=== PATIENT | female | born 1945 | race Caucasian/White ===

== ENCOUNTER → 2023-10-15 10:29 | Outpatient (REF) | payer MEDICARE, OTHER, SELFPAY | LOC: HWRAD 10:29 | PROVIDERS: ATTENDING PHYSICIAN Internal Medicine Hematology & Oncology; FAMILY PHYSICIAN Family Medicine | DX: C16.3 Malignant neoplasm of pyloric antrum (principal) | CPT/HCPCS: 71260; 74177; Q9967 ==

== ENCOUNTER 2024-01-19 09:27 | Inpatient (IN) | payer MEDICARE, OTHER, SELFPAY ==
[2024-01-16] VITALS (7 sets, daily range): BP systolic 113–151; BP diastolic 72–87; BMI 24.1
--- NOTE | 2024-01-16 15:20 | ED.GENMED ---
History of Present Illness
General
Chief Complaint: Breathing Problem
Source: patient and family
Exam Limitations: none
Time Seen by Provider: 01/16/24 15:03
Nursing documentation reviewed up to this point in time: agreed with
History of Present Illness
History of Present Illness:
Patient to ED wt complaint of worsening SOB. States symptoms started months ago but over the past 2 weeks SOB has worsened and she is now having difficulty with ADL's. Sent for outpatient labs last week. Told by PCP today that Ddimer and BNP
were elevated and to come to ED. Denies fever but feels chills. No n/v/d. Denies any CP/pressure, cough. Brought to ED by son for eval.
Past History
Past History
ED Past Medical History: Cancer (gastric 2019 - chemo, radiation, partial gastrectomy), HTN, Hypothyroidism and Other (Hx DVT RUE after PICC insertion. 2019. Tx with mellisa)
ED Past Surgical History: Cholecystectomy, Orthopedic (toe amputation) and Other (partial gastrectomy)
Social History
Tobacco: Non-smoker
Alcohol: None
Drug: None
Personal: Single
Living: with family
Review of Systems
Review of Systems
Allergies reviewed?: Yes
All Other Systems: ROS reviewed and negative except as documented in HPI and ROS
Constitutional: Reports chills
EENT: Reports no symptoms
Respiratory: Reports trouble breathing
Cardiac: Reports no symptoms
ABD/GI: Reports other (poor appetite)
: Reports no symptoms
Musculoskeletal: Reports no symptoms
Skin: Reports no symptoms
Neurological: Reports no symptoms
Psychiatric: Reports no symptoms
Phy Exam
General Physical Exam
General Presentation: well appearing and no apparent distress
General age: appears stated age
General Skin: warm and dry
General Habitus: normal
General Mental: alert
Cardiovascular Exam
Cardiovascular Exam: regular rate/rhythm and no edema
Pulmonary Exam
Pulmonary Exam: lungs clear, no respiratory distress (Pulse ox 95% RA) and chest non tender
Gastrointestinal Exam
Gastrointestinal Exam: non tender and soft
Musculoskeletal Exam
Musculoskeletal Exam: full ROM, no edema and neuro vasc intact
Skin Exam
Skin Exam: normal color, warm/dry and no rash
Psychiatric Exam
Psychiatric Exam: normal mood/affect
Scores
Heart Failure Risk
Heart Failure Risk Score: Not Applicable
Course
Orders/Labs/Results
Orders:
Orders
01/16/24 14:58
Electrocardiogram (*1) Urgent
Reason for Study: Shortness of Breath
EKG- Treatment ONCE
01/16/24 Dinner
Regular
At Your Request: Full Participation
Does patient need a safe tray?: No
01/16/24 15:14
Complete Blood Count/With Diff Urgent
Comprehensive Metabolic Panel Urgent
D-Dimer Urgent
Free T4 Urgent
NT-proBNP Urgent
TSH Reflex To Free T4 Urgent
Troponin I Urgent
01/16/24 15:25
COVID-19 Antigen Urgent
Source: Nasal Swab
01/16/24 15:56
CT Chest Pe Study Urgent
Comment:
Reason For Exam: sob w elevated d-dimer
01/16/24 17:20
Urinalysis Reflex To Culture Urgent
Date Specimen was Collected: 01/16/24
Time Specimen was Collected: 15:13
Urine Microscopic Reflex Cult Urgent
Urine Culture Urgent
PARDEEP Source: U
Specimen Description:
Date Specimen was Collected: 01/16/24
Time Specimen was Collected: 15:13
01/16/24 17:33
CARDIOLOGY CONSULT Urgent
Consulting Provider: Bryce Monsivais
Was physician already notified: Yes
01/16/24 18:47
Admit/Transfer Patient As Directed
Co-Sign Provider:
Level of Care: Observation services
Assign to:: Telemetry
Physician / Group: umesh
Diagnosis: nonischemic troponin elevation
Reason for Telemetry: Arrhythmia
Date to Stop Telemetry: 01/19/24
Time to Stop Telemetry: 11:00
Code Status As Directed
Resuscitation Status: Full Code
PRN Pain Medication Management As Directed
May give lesser potent ordered pain med per pt: Yes
preference::
Protocol:: Medication orders for pain may be administered in a
manner that supports deferring to patient preference
when the pt is:
- Requesting an ordered lesser potent pain medication.
Least to most potent pain medications are defined
as: acetaminophen < NSAID < tramadol < opioids
(morphine, oxycodone, hydromorphone).
- Requesting a lesser dose of the same medication IF
ORDERED.
- Requesting a less intrusive route of administration
if both routes are prescribed by the provider (PO <
IV).
01/16/24 19:01
Furosemide [Lasix] 40 mg IV NOW STA
01/16/24 19:59
CARDIOLOGY CONSULT Routine
Consulting Provider: Bryce Monsivais
Was physician already notified: Yes
Activity As Directed
Activity Level: As Tolerated
I/O [Intake/ Output] As Directed
Frequency: q12h
Vital Signs As Directed
Frequency: Per unit guidelines
Weight As Directed
Frequency: Daily
DX Deep Vein Thrombosis Video Routine
01/16/24 20:00
Heparin 5,000 units SC Q12
Metoprolol Xl [Toprol Xl] 25 mg PO BID
Metoprolol [Lopressor] 25 mg PO BID
01/16/24 20:20
Troponin I Q6H
01/17/24 01:59
Troponin I Q6H
01/17/24 Breakfast
NPO
Allow oral meds: Yes
Allow clear liquids: Sips of Clears
Complete Blood Count/With Diff IN AM
Comprehensive Metabolic Panel IN AM
Levothyroxine [Synthroid] 125 mcg PO DAILY @ 0600
01/17/24 07:59
Troponin I Q6H
01/17/24 08:00
Amlodipine [Norvasc] 5 mg PO DAILY
Aspirin Chewable [Low Strength Aspirin] 81 mg PO DAILY
Cholecalciferol (Vitamin D3) [VITAMIN D3 (cholecalciferol)] 75 mcg PO DAILY
Clopidogrel Bisulfate [Plavix] 75 mg PO DAILY
Losartan [Cozaar] 100 mg PO DAILY
01/17/24 18:00
Atorvastatin [Lipitor] 40 mg PO QPM
01/19/24 11:00
DC Protocol for Telemetry ONCE
Abnormal Lab Results
01/16/24 01/16/24
15:14 17:20
Hct 35.6 L %
(37.0-47.0)
Abs Immat Gran (auto) 0.1 H 10^3/uL
(0-0.05)
Absolute Neuts (auto) 7.9 H 10^3/uL
(1.4-6.5)
Absolute Monos (auto) 1.0 H 10^3/uL
(0.1-0.6)
Immature Gran % 0.7 H %
(0-0.5)
Lymphocytes % 14.2 L %
(20.5-51.1)
D-Dimer 14.99 H ug/mlFEU
(0.00-0.50)
Potassium 3.4 L mmol/L
(3.5-5.1)
Chloride 108 H mmol/L
(98-107)
Carbon Dioxide 17 L mmol/L
(22-30)
BUN 18 H mg/dl
(7-17)
Glucose 112 H mg/dl
(70-99)
Troponin I 0.486 H* ng/ml
TSH (Reflex) 16.10 H uIU/ml
(0.47-4.68)
Leukocyte Esterase Rfl Trace A
(Negative)
Urine WBC (Reflex) 16-20 A /HPF
(0-5)
Urine Bacteria (Reflex) Few A
(Negative)
01/16/24 15:14
01/16/24 15:14
Vital Signs
Initial and Last Documented VS:
Initial Vital Signs
Temp Pulse Resp BP Pulse Ox
99.4 F 108 22 151/85 92
01/16/24 14:54 01/16/24 14:54 01/16/24 14:54 01/16/24 14:54 01/16/24 14:54
Last Documented Vital Signs
Temp Pulse Resp BP Pulse Ox
98.1 F 79 18 137/87 95
01/16/24 20:26 01/16/24 20:31 01/16/24 20:26 01/16/24 20:31 01/16/24 20:26
*Critical Care Note
Total Time (30-74mins, 75-104mins- exclusive of procedures): Not Applicable
Update Note
Update Note:
DDimer 14, Troponin 0.[address] - r/o PE She remains awake and alert, in no distress. NO cp/pressure. No SON at rest. Pulse ox 95% RA. VSS.
Ct: no evidence of PE. Dr. Bowman notifed of patient status by Dr. Grajeda. Will admit to hospitalist service. COntinue to trend troponin. Echo in AM.
ED Attending Note
-
Portions of this chart may have been created with voice recognition software.� Occasional wrong word or��sound alike� substitutions may have occurred due to the inherent limitations of voice recognition software.
Discharge Plan
Departure
Patient Disposition: Admit
Date of Disposition: 01/16/24
Time of Disposition: 17:32
Presentation/result/management discussed w/ accepting MD/DO: Hospitalist
Discharge Problem:
PRO (dyspnea on exertion), Elevated troponin
Interventions
Interventions:
*Risk Screen - Suicide Last Done: 01/16/24 20:50
*General Assessment Last Done: 01/16/24 14:54
*Neglect/Abuse Screening Last Done: 01/16/24 14:54
ED- Fall Risk Assessment Last Done: 01/16/24 15:19
*ED COVID-19 Vaccine History Last Done: 01/16/24 20:50
*Nursing Disposition Last Done: 01/16/24 19:54
ED- Cardiac Assessment Last Done: 01/16/24 15:19
ED- Pulmonary Assessment Last Done: 01/16/24 15:19
Discharge Date and Time
Discharge Date/Time: 01/16/24 19:55
[2024-01-16 15:28] LABS: % Basophils 0.7 % (0-2); % Eosinophils 0.8 % (0-6); % Immature Granulocytes 0.7 % (0-0.5); % Lymphocytes 14.2 % (20.5-51.1); % Monocytes 9.3 % (1.7-9.3); % Neutrophils 74.3 % (42.2-75.2); Absolute Basophils 0.1 10^3/uL (0-0.2); Absolute Eosinophils 0.1 10^3/uL (0-0.7); Absolute Immature Granulocytes 0.1 10^3/uL (0-0.05); Absolute Lymphocytes 1.5 10^3/uL (1.2-3.4); Absolute Neutrophils 7.9 10^3/uL (1.4-6.5); Hematocrit 35.6 % (37.0-47.0); Hemoglobin 12.8 g/dL (12.0-16.0); Mean Corpuscular Hgb 30.4 pg (27.0-31.0); Mean Corpuscular Volume 84.6 fL (81.0-99.0); Mean Platelet Volume 9.3 fL (7.4-10.4); Nucleated Red Blood Cells % 0 %; Platelet Count 312 10^3/uL (130-400); Red Blood Cell Count 4.21 10^6/uL (4.20-5.40); Red Cell Dist. Width 13.5 % (11.5-14.5); White Blood Cell Count 10.7 10^3/uL (4.8-10.8)
[2024-01-16 15:42] LABS: D-Dimer 14.99 ug/mlFEU (0.00-0.50)
[2024-01-16 15:46] LABS: COVID-19 Antigen Negative (Negative)
[2024-01-16 15:50] LABS: NT-proBNP 933 pg/ml; Troponin I 0.486 ng/ml
[2024-01-16 16:04] LABS: ALT (SGPT) 12 U/L (0-35); AST (SGOT) 25 U/L (14-36); Alkaline Phosphatase 88 U/L (38-126); Blood Urea Nitrogen 18 mg/dl (7-17); Calcium 9.1 mg/dl (8.4-10.2); Carbon Dioxide 17 mmol/L (22-30); Chloride 108 mmol/L (98-107); Glucose 112 mg/dl (70-99); Potassium 3.4 mmol/L (3.5-5.1); Sodium 138 mmol/L (135-145); Total Bilirubin 0.7 mg/dl (0.2-1.3); Total Protein 6.9 g/dl (6.3-8.2); eGFR 57.31
[2024-01-16 17:21] LABS: Free T4 2.08 ng/dl (0.78-2.19)
[2024-01-16 17:36] LABS: Urine Albumin Negative (Neg - Trace); Urine Bilirubin Negative (Negative); Urine Character Clear (Clear); Urine Color Yellow; Urine Glucose Negative (Negative); Urine Ketone Negative (Negative); Urine Leukocyte Trace (Negative); Urine Nitrite Negative (Negative); Urine Occult Blood Negative (Negative); Urine Specific Gravity 1.005 (<1.030); Urine Urobilinogen Negative (Neg - 1+)
[2024-01-16 17:53] LABS: Urine Red Blood Cell 0-2 /HPF (0-2); Urine Squamous Cell >30 /LPF (Few)
[2024-01-16 17:54] LABS: Urine Bacteria Few (Negative); Urine White Cell 16-20 /HPF (0-5)
--- NOTE | 2024-01-16 18:22 | CON.CAR ---
Consultation
Consultation Request
Date/Time Consultation Requested: 01/16/24 5:30
Date/Time Consultation Performed: 01/16/24 6:10
Requesting Provider: Dr Grajeda
Performing Provider: Dr Salomon
Reason for Consultation: abn troponin
Medical History
-
Chief Complaint: sob
History of Present Illness:
78-year-old female with past medical history of hypothyroidism, DVT, stroke, mild aortic stenosis presents to [facility] with abnormal D-dimer, fatigue, and shortness of breath. She has been feeling poorly for several weeks with no energy,
severe tiredness, and fatigue. She had outpatient lab work which revealed a D-dimer of 11 and a proBNP of 900. She was sent to the emergency room for further evaluation. CT scan of the chest revealed no pulmonary embolism but mild pleural
effusions. Her troponin was found to be abnormal at 0.4. She denies any chest pains. She has been feeling poorly for several weeks. The symptoms have been gradual in onset. She denies any orthopnea, PND, or edema. She has been sleeping
frequently. She has no fevers or chills. She has no coughing or wheezing. She has no palpitations or syncope. Her TSH was also abnormal but free T4 was normal. She is currently lying comfortably in bed not hypoxic.
Past Medical History
Past Medical History: CVA, HTN, Hypothyroidism and Other (hx DVT)
Past Surgical History: Other (Gastrectomy)
Social History
Tobacco: Non-Smoker
Alcohol: None
Living: With Family
Family History
Family History: CAD and Hypertension
Allergies / Home Medications
Allergy/AdvReac Type Severity Reaction Status Date / Time
No Known Allergies Allergy Unverified 06/05/11 09:31
�Medication �Instructions �Recorded �Confirmed �Type
amlodipine 10 mg tablet 10 mg PO DAILY 04/29/10 06/04/11 History
calcitonin (salmon) 200 1 spray intranasal DAILY 04/29/10 06/04/11 History
unit/actuation nasal spray
levothyroxine 100 mcg tablet 100 mcg PO DAILY 04/29/10 06/04/11 History
Review of Systems
-
History Source: Patient
Constitutional: Fatigue
EENT: No Symptoms
Respiratory: Trouble Breathing
Cardiac: No Symptoms
Abdomen/GI: No Symptoms
: No Symptoms
Musculoskeletal: No Symptoms
Skin: No Symptoms
Neurological: Weakness
Endocrine: No Symptoms
Hematologic/Lymphatic: No Symptoms
Physical Exam
Vital Signs
Temp Pulse Resp BP Pulse Ox
99.4 F 97 20 117/73 92
01/16/24 14:54 01/16/24 18:00 01/16/24 18:00 01/16/24 16:00 01/16/24 18:00
Lab Results
01/16/24 15:14
01/16/24 15:14
Troponin I 0.486 ng/ml H* 01/16/24 15:14
Oqd-W-Cvhkpapisds Pept 933 pg/ml 01/16/24 15:14
Physical Exam
General: Well Developed and Well Nourished
HEENT: Normocephalic and Anicteric
Respiratory: Clear and Non Labored Respirations
Cardiac: S1/S2, Regular Rhythm and Murmur (3/6 syst LSB)
GI: Soft, Non Tender and Non Distended
Genito-urinary: No Costovertebral Tender
Musculoskeletal: No Edema
Skin: Warm and Dry
Neuro: AO x 3
Impression / Plan
-
Assess:
Shortness of breath/fatigue
Elevated troponin, possible non-STEMI
Abnormal D-dimer with negative CT for PE
Pleural effusions
Hypothyroidism/abnormal TSH/normal free T4
Hypertension
History of right upper extremity DVT secondary to PICC line 2020
Mild aortic stenosis
History of gastric cancer status postgastrectomy
CVA
Echo 09/19/22: EF 70 to 75% with mild MR, mild aortic stenosis and mild aortic regurgitation, mean gradient 11.
Plan:
She presents with shortness of breath and an abnormal troponin of unclear etiology. She does have an abnormal D-dimer but CT scan did not reveal pulmonary embolism. EKG has sinus rhythm with nonspecific ST abnormalities.
We will trend her troponin and follow. This could be a non-STEMI which occurred several days ago. Add aspirin and Plavix. With no chest pains would hold off on IV heparin.
Start metoprolol 25 mg p.o. every 12. Continue losartan.
Will start with an echocardiogram to reevaluate her LVEF and aortic valve. She does have a history of at least mild aortic stenosis and has a prominent aortic murmur.
She does have some mild volume overload and will give Lasix 40 mg IV x 1 and follow her clinically. Her proBNP is modestly elevated.
Her TSH is elevated but free T4 remains relatively normal. Would continue to attempt to maintain a euthyroid state.
Check lipids and add atorvastatin 40 mg daily.
Data Reviewed
-
EKG: Tracing Personally Visualized and interpreted
Radiology: Report Reviewed by me
Medical Tests (Nuc Med, Echo etc): Report Reviewed by me
Labs: Labs Reviewed by me
Old Records: Reviewed
--- NOTE | 2024-01-16 18:54 | HPS.HSE ---
Addendum entered and electronically signed by Jerson Soto MD 01/16/24 19:05:
Started aspirin, Plavix and statin and metoprolol as per cardiology. Give single dose of IV Lasix.
Original Note:
Family Physician
-
Family Physician: Segun Dunlap
Chief Complaint
-
shortness of breath
History of Present Illness
78-year-old female past medical history of gastric cancer in 2020 s/p chemotherapy/radiation/partial gastrectomy, hypertension, hypothyroidism, cholelithiasis, DVT right upper extremity, presenting with worsening shortness of breath. Symptoms
started months ago but over the past 2 weeks shortness of breath is worsened and patient is now having difficulty with ADLs. Patient was sent for outpatient labs last week. She was told by primary care physician today to D-dimer and cardiac BNP
was elevated and told to come to the emergency room. Patient denies any fevers/chills. Denies nausea or vomiting or diarrhea. Denies any chest pain or pressure cough.
She denies any weight gain or lower extremity edema.
Mother had heart failure.
Denies any smoking or alcohol use.
Medical History
Past Medical History
Past Medical History: Reports Other (gastric cancer in 2020 s/p chemotherapy/radiation/partial gastrectomy, hypertension, hypothyroidism, cholelithiasis, DVT right upper extremity)
Past Surgical History: Reports Other ( Cholecystectomy, Orthopedic (toe amputation) and Other (partial gastrectomy))
Social History
Tobacco: Non-smoker
Alcohol: None
Drug: None
Family History
Family History: Not pertinent
Allergies / Home Medications
Allergies reflects when Allergies were last updated in [facility].
Home Medications with original date entered in [facility]
Allergy/Medication List:
Allergies
Allergy/AdvReac Type Severity Reaction Status Date / Time
No Known Allergies Allergy Unverified 06/05/11 09:31
Home Medications
amlodipine 5 mg tablet 5 mg PO DAILY Blood Pressure 01/16/24
cholecalciferol (vitamin D3) 25 mcg (1,000 unit) tablet (Vitamin D3) 75 mcg PO DAILY Supplement 01/16/24
denosumab 60 mg/mL subcutaneous syringe (Prolia) 60 mg SC [id number] bone loss 01/16/24
levothyroxine 125 mcg tablet 125 mcg PO DAILY Thyroid 01/16/24
losartan 100 mg tablet 100 mg PO DAILY Blood Pressure 01/16/24
Review of Systems
-
History Source: Patient
A 12 point ROS was completed and negative except as noted: Yes
Constitutional: Reports No Symptoms
EENT: Reports No Symptoms
Respiratory: Reports See HPI
Cardiac: Reports See HPI
Abdomen/GI: Reports No Symptoms
: Reports No Symptoms
Musculoskeletal: Reports No Symptoms
Skin: Reports No Symptoms
Neurological: Reports No Symptoms
Endocrine: Reports No Symptoms
Hematologic/Lymphatic: Reports No Symptoms
Psych: Reports No Symptoms
Physical Exam
Vital Signs
Vital Signs
Temp Pulse Resp BP Pulse Ox
99.4 F 84 15 124/86 93
01/16/24 14:54 01/16/24 18:45 01/16/24 18:45 01/16/24 18:11 01/16/24 18:45
Physical Exam
General: Well Developed, Well Nourished and No Apparent Distress
HEENT: NormoCephalic, Moist mucous membranes and Atraumatic
Respiratory: Clear
Cardiac: S1/S2 and Regular Rhythm; No Murmur or Rub
GI: Soft, Non Tender, Non Distended and Normal Bowel Sounds; No Organomegaly
Rectal: Deferred by Provider
Musculoskeletal: No Clubbing, No Cyanosis and No Edema
Skin: No Rash
Neuro: Nonfocal/grossly intact
Laboratory Results
-
01/16/24 15:14
01/16/24 15:14
Laboratory Results
Total Bilirubin 0.7 mg/dl (0.2-1.3) 01/16/24 15:14
AST 25 U/L (14-36) 01/16/24 15:14
ALT 12 U/L (0-35) 01/16/24 15:14
Alkaline Phosphatase 88 U/L (38-126) 01/16/24 15:14
Troponin I 0.486 ng/ml H* 01/16/24 15:14
Data Reviewed
-
Lab Data: Labs Reviewed by me
Old Records: Reviewed
Impression/Plan
-
IMPRESSION:
PLAN:
# Exertional dyspnea unclear etiology possibly CHF versus progression of aortic stenosis
# Nonischemic myocardial injury versus NSTEMI
-No chest pain
-EKG shows ST depressions in leads V4 to V6
-Troponin of 0.486, continue to trend
-Cardiac BNP of 900, not overtly in heart failure clinically
-CT PE shows no evidence of pulm embolism, small left greater than right bilateral pleural effusions
-Cardiology recommended holding off heparin for now
-Echocardiogram
-NPO past midnight in case cath needed
# Hypokalemia
-Replete potassium
Gastric cancer in 2020 s/p chemotherapy/radiation/partial gastrectomy
Essential hypertension
-Continue amlodipine, losartan
Hypothyroidism
-Continue levothyroxine
Cholelithiasis
History of DVT of right upper extremity from PICC line
Full code
DVT prophylaxis heparin
Regular diet
[2024-01-16] MEDS: LASIX 40 MG IV (19:14)
[2024-01-16] MEDS: LOPRESSOR 25 MG PO (20:31)
[2024-01-16] MEDS: HEPARIN 5000 UNITS SC (20:31)
[2024-01-16 20:55] LABS: Troponin I 0.579 ng/ml
[2024-01-17 03:13] LABS: Troponin I 0.533 ng/ml
[2024-01-17 03:17] VITALS: BP 119/82
[2024-01-17] MEDS: SYNTHROID 125 MCG PO (05:35)
[2024-01-17 07:14] VITALS: BP 132/81
[2024-01-17 08:02] LABS: % Basophils 0.6 % (0-2); % Immature Granulocytes 0.6 % (0-0.5); % Lymphocytes 14.5 % (20.5-51.1); % Monocytes 10.6 % (1.7-9.3); % Neutrophils 72.7 % (42.2-75.2); Absolute Basophils 0.1 10^3/uL (0-0.2); Absolute Eosinophils 0.1 10^3/uL (0-0.7); Absolute Immature Granulocytes 0.1 10^3/uL (0-0.05); Absolute Lymphocytes 1.3 10^3/uL (1.2-3.4); Absolute Monocytes 0.9 10^3/uL (0.1-0.6); Absolute Neutrophils 6.4 10^3/uL (1.4-6.5); Hematocrit 33.9 % (37.0-47.0); Hemoglobin 11.9 g/dL (12.0-16.0); Mean Corp Hgb Conc. 35.1 g/dL (33.0-37.0); Mean Corpuscular Hgb 30.4 pg (27.0-31.0); Mean Corpuscular Volume 86.5 fL (81.0-99.0); Mean Platelet Volume 9.5 fL (7.4-10.4); Nucleated Red Blood Cells % 0 %; Platelet Count 267 10^3/uL (130-400); Red Blood Cell Count 3.92 10^6/uL (4.20-5.40); Red Cell Dist. Width 13.6 % (11.5-14.5); White Blood Cell Count 8.9 10^3/uL (4.8-10.8)
[2024-01-17] MEDS: HEPARIN 5000 UNITS SC ×2 (08:19→20:23)
[2024-01-17] MEDS: COZAAR 100 MG PO (08:21)
[2024-01-17] MEDS: NORVASC 5 MG PO (08:21)
[2024-01-17] MEDS: VITAMIN D3 (cholecalciferol) 75 MCG PO (08:22)
[2024-01-17] MEDS: PLAVIX 75 MG PO (08:25)
[2024-01-17] MEDS: LOPRESSOR 25 MG PO ×2 (08:25→20:24)
[2024-01-17] MEDS: LOW STRENGTH ASPIRIN 81 MG PO (08:26)
[2024-01-17 08:46] LABS: Troponin I 0.483 ng/ml
[2024-01-17 08:54] LABS: ALT (SGPT) < 10 U/L (0-35); AST (SGOT) 22 U/L (14-36); Albumin 3.8 g/dl (3.5-5.0); Alkaline Phosphatase 75 U/L (38-126); Blood Urea Nitrogen 18 mg/dl (7-17); Calcium 8.7 mg/dl (8.4-10.2); Carbon Dioxide 20 mmol/L (22-30); Chloride 108 mmol/L (98-107); Estimated Creatinine Clearance 30 ml/min; Glucose 95 mg/dl (70-99); Potassium 3.6 mmol/L (3.5-5.1); Sodium 139 mmol/L (135-145); Total Bilirubin 0.7 mg/dl (0.2-1.3); Total Protein 6.5 g/dl (6.3-8.2); eGFR 46.05
--- NOTE | 2024-01-17 11:17 | W.PN.HOSP.TC ---
Today's Communication/Plan
-
await cards recs
cp free
monitor on tele
trend bmp
Assessment / Plan
Assessment / Plan
# Exertional dyspnea unclear etiology possibly CHF versus progression of aortic stenosis
# Elevated troponin likely NSTEMI
-No chest pain and thus heparin gtt was not started
-EKG with subtle ST wave depression
-Troponin peaked to 0.579 and now downtrended.
-Cardiac BNP of 900, s/p 40mg IV lasix [address]
-CT PE shows no evidence of pulm embolism, small left greater than right bilateral pleural effusions
-Cardiology recommended holding off heparin for now
-Echocardiogram
#Elevated cr
-trend bmp for now
-did receive IV contrast.
# Hypokalemia
-Replete potassium
Gastric cancer in 2019 s/p chemotherapy/radiation/partial gastrectomy
Essential hypertension
-Continue amlodipine, losartan
Hypothyroidism
-Continue levothyroxine
Cholelithiasis
History of DVT of right upper extremity from PICC line
Full code
DVT prophylaxis heparin
d/w with family member at bedside
Anticipated Discharge: > 48 hours
Subjective/Interval History
-
Date of Service: January 17, 2024
states passing alot of urine
Objective Data
-
Labs:
Laboratory Results
01/17/24
07:15
WBC 8.9
Hgb 11.9 L
Hct 33.9 L
Plt Count 267
Sodium 139
Potassium 3.6
Chloride 108 H
Carbon Dioxide 20 L
BUN 18 H
Creatinine 1.2 H
Glucose 95
Calcium 8.7
Total Bilirubin 0.7
AST 22
ALT < 10
Alkaline Phosphatase 75
Vital Signs:
Vital Signs
Temp Pulse Resp BP Pulse Ox
97.4 F 68 14 132/81 96
01/17/24 07:14 01/17/24 07:14 01/17/24 07:14 01/17/24 07:14 01/17/24 08:00
I&O
01/16/24 01/17/24 01/18/24
06:59 06:59 06:59
Intake Total 0 / 0
Balance 0 / 0
Physical Exam
-
General: Well Developed and No Apparent Distress
HEENT: Normocephalic, Atraumatic and Moist Mucous Membranes
Respiratory: Clear to Auscultation
Cardiac: Regular Rhythm, S1/S2 and Murmur; Negative Rub or Gallop
GI: Soft, Nontender, Nondistended and Normal Bowel Sounds; Negative Organomegaly
Rectal: Deferred by Provider
Musculoskeletal: No Clubbing, No Cyanosis and No Edema
Skin: Negative Rash
Neuro: Awake, AO x 3, No Motor Deficits and Nonfocal/Grossly Intact
Psych: Calm
[2024-01-17 11:25] VITALS: BP 125/69
--- NOTE | 2024-01-17 12:18 | W.PN.CARDCBS ---
Addendum entered and electronically signed by Segun Schmid MD 01/17/24 14:16:
Patient seen and examined by me
She tells me she has no symptoms at rest. With activity (walking to bathroom) this AM, she has less PRO
Well appearing, sitting up in bed eating lunch and visiting with family at bedside
RRR, Nl S1 and S2, no S3 or S4, /6 AHSM, no rubs and nl PMI
Lungs CTA b/l without wheezes, rales or rhonchi
Abd S, NT, ND, + BS
Ext with no edema
NSTEMI with dropping troponin and improved symptoms
DAPT was started and symptoms improved, cont for now
Cont BB, ARB and statin
Plan for echo and Cath on Friday (discussed with patient and she is agreable)
Acute Kidney Injury
No further Lasix
Follow renal function
Can assess RHC (at time of [facility]) on Friday to better assess filling pressures
Original Note:
Today's Communication / Plan
-
Check echo
N.p.o. 01/18/2024
Likely Cardiac catheterization 01/18/2024
Continue Lopressor, aspirin, Plavix, losartan, amlodipine and atorvastatin
Impression / Plan
-
Assess:
Presented 01/16/2024 with shortness of breath, fatigue
Shortness of breath/fatigue
Elevated troponin, peak 0.579 concern for possible non-STEMI
Abnormal D-dimer with negative CT for PE
Pleural effusions
Hypothyroidism/abnormal TSH/normal free T4
Hypertension
History of right upper extremity DVT secondary to PICC line 2019
Mild aortic stenosis
History of gastric cancer status postgastrectomy
CVA
Echo 09/19/22: EF 70 to 75% with mild MR, mild aortic stenosis and mild aortic regurgitation, mean gradient 11.
Echo:ordered
Plan:
-She presented 01/17/2024 with shortness of breath and an abnormal troponin of unclear etiology.
-Abnormal troponin, concern for late presenting NSTEMI with peak troponin 0.579. EKG shows sinus rhythm with nonspecific T wave abnormality in anterior leads, resolved on repeat
-Continue aspirin and Plavix
-echocardiogram to reevaluate her LVEF and aortic valve. She does have a history of at least mild aortic stenosis and has a prominent aortic murmur.
-Will make n.p.o. morning of 01/19/2024 for catheterization on 01/19/2024
-Hold on heparin unless patient has recurrent chest pain
-Continue Lopressor 25 mg twice daily, amlodipine and losartan
-She does have an abnormal D-dimer but CT scan did not reveal pulmonary embolism.
-On presentation evidence of mild volume overload. proBNP 933. Patient was provided IV Lasix 40 mg x 1 01/16/24. Creat bumped to 1.2. Hold on additional diuresis at this time. Can assess filling pressures with catheterization
-Check lipids and add atorvastatin 40 mg daily.
-Her TSH is elevated but free T4 remains relatively normal. Would continue to attempt to maintain a euthyroid state.
Plan discussed with patient, patient's family at bedside and hospitalist
HPI 01/17/2024:
78-year-old female with past medical history of hypothyroidism, DVT, stroke, mild aortic stenosis presents to [facility] with abnormal D-dimer, fatigue, and shortness of breath. She has been feeling poorly for several weeks with no energy,
severe tiredness, and fatigue. She had outpatient lab work which revealed a D-dimer of 11 and a proBNP of 900. She was sent to the emergency room for further evaluation. CT scan of the chest revealed no pulmonary embolism but mild pleural
effusions. Her troponin was found to be abnormal at 0.4. She denies any chest pains. She has been feeling poorly for several weeks. The symptoms have been gradual in onset. She denies any orthopnea, PND, or edema. She has been sleeping
frequently. She has no fevers or chills. She has no coughing or wheezing. She has no palpitations or syncope. Her TSH was also abnormal but free T4 was normal. She is currently lying comfortably in bed not hypoxic.
Progress Note - Grinding Operator
Subjective
Date of Service: January 17, 2024
Patient seen and examined. Patient resting comfortably in bed. Family at bedside. Denies chest pain or shortness of breath at rest.
Objective
Labs:
01/17/24 07:15
01/17/24 07:15
Labs
Hgb 11.9 g/dL (12.0-16.0) L 01/17/24 07:15
Hct 33.9 % (37.0-47.0) L 01/17/24 07:15
Plt Count 267 10^3/uL (130-400) 01/17/24 07:15
Sodium 139 mmol/L (135-145) 01/17/24 07:15
Potassium 3.6 mmol/L (3.5-5.1) 01/17/24 07:15
BUN 18 mg/dl (7-17) H 01/17/24 07:15
Creatinine 1.2 mg/dL (0.6-1.0) H 01/17/24 07:15
Glucose 95 mg/dl (70-99) 01/17/24 07:15
Troponins
01/16/24 01/16/24 01/17/24
15:14 20:20 02:11
Troponin I 0.486 H* 0.579 H* 0.533 H*
01/17/24
07:15
Troponin I 0.483 H*
Vital Signs and I&O:
Vital Signs
Temp Pulse Resp BP Pulse Ox
97.8 F 65 14 125/69 96
01/17/24 11:25 01/17/24 11:25 01/17/24 11:25 01/17/24 11:25 01/17/24 08:00
Vital Signs
Temp Pulse Resp BP Pulse Ox
97.8 F 65 14 125/69 96
01/17/24 11:25 01/17/24 11:25 01/17/24 11:25 01/17/24 11:25 01/17/24 08:00
Intake & Output
01/15/24 01/16/24 01/17/24 01/18/24
06:59 06:59 06:59 06:59
Intake Total 0 / 0
Balance 0 / 0
Physical Exam
Physical Exam
GEN: No distress, awake, Ox3
HEENT: supple, anicteric, mmm
LUNGS: CTA, no wheezes/rales
CV: Reg, S1/S2, 1/6 syst murmur
ABD: soft, BS+, NT/ND
EXT: No edema, no clubbing or cyanosis
NEURO: Gross non-focal
SKIN: No rash, warm, dry, pink
[2024-01-17 15:47] VITALS: BP 112/72
--- NOTE | 2024-01-17 16:19 | CM ---
met with patient,son and daughter at bedside.patient lives with son and dght in house with 7 sav,her bed and bath is on the first level,she amb i and is I with her adl.her pcp is dr sulema carlson and she uses [facility] in [facility].she has
had a vn after dc from hospital.no hx of ip rehab faciities
PMH:gastric ca sp chemo/xrt/partial gastrectomy,htn,dvt after picc placement
patient adm with nstemi,for echo,cardiac cath on friday.plan home with vn vs home with no needs.
[2024-01-17] MEDS: LIPITOR 40 MG PO (17:01)
[2024-01-17 19:33] VITALS: BP 135/74
[2024-01-17 23:00] VITALS: BP 121/80
[2024-01-18 03:46] VITALS: BP 127/75
[2024-01-18] MEDS: SYNTHROID 125 MCG PO (05:55)
[2024-01-18 07:02] VITALS: BP 136/71
[2024-01-18] MEDS: PLAVIX 75 MG PO (08:17)
[2024-01-18] MEDS: VITAMIN D3 (cholecalciferol) 75 MCG PO (08:18)
[2024-01-18] MEDS: LOPRESSOR 25 MG PO ×2 (08:18→19:49)
[2024-01-18] MEDS: LOW STRENGTH ASPIRIN 81 MG PO (08:18)
[2024-01-18] MEDS: NORVASC 5 MG PO (08:18)
[2024-01-18] MEDS: COZAAR 100 MG PO (08:18)
[2024-01-18] MEDS: HEPARIN 5000 UNITS SC ×2 (08:18→19:49)
[2024-01-18 09:12] LABS: Blood Urea Nitrogen 29 mg/dl (7-17); Calcium 9.2 mg/dl (8.4-10.2); Carbon Dioxide 20 mmol/L (22-30); Chloride 108 mmol/L (98-107); Estimated Creatinine Clearance 33 ml/min; Glucose 101 mg/dl (70-99); HDL Cholesterol 37 mg/dl; LDL Cholesterol, Calculated 102 mg/dl; Potassium 3.5 mmol/L (3.5-5.1); Sodium 139 mmol/L (135-145); Total Cholesterol 164 mg/dl (50-199); Triglyceride 125 mg/dl (10-149); Very Low Density Lipoprotein 25 mg/dl (0-30); eGFR 51.11
[2024-01-18 10:11] VITALS: BMI 23.4
--- NOTE | 2024-01-18 11:01 | W.PN.HOSP.TC ---
Today's Communication/Plan
-
ECHO
Cath in am
npo pmn
trend cr
lasix held
Assessment / Plan
Assessment / Plan
# Exertional dyspnea unclear etiology possibly CHF versus progression of aortic stenosis
# Elevated troponin likely NSTEMI
-No chest pain and thus heparin gtt was not started
-EKG with subtle ST wave depression
-Troponin peaked to 0.579 and now downtrended.
-Cardiac BNP of 900, s/p 40mg IV lasix 1 dose.
-CT PE shows no evidence of pulm embolism, small left greater than right bilateral pleural effusions
-Cardiology recommended holding off heparin for now
-Echocardiogram and cardiac cath tomm. NPO PMN.
#Elevated cr
-trend bmp for now
-did receive IV contrast.
-Cr downtrended to 1.1
# Hypokalemia
-Replete potassium
Gastric cancer in 2019 s/p chemotherapy/radiation/partial gastrectomy
Essential hypertension
-Continue amlodipine, losartan
Hypothyroidism
-Continue levothyroxine
Cholelithiasis
History of DVT of right upper extremity from PICC line
Full code
DVT prophylaxis heparin
d/w with family member at bedside on 01/16.
Anticipated Discharge: 24 - 48 hours
Subjective/Interval History
-
Date of Service: January 18, 2024
denies cp or sob
Objective Data
-
Labs:
Laboratory Results
01/18/24
07:50
Sodium 139
Potassium 3.5
Chloride 108 H
Carbon Dioxide 20 L
BUN 29 H
Creatinine 1.1 H
Glucose 101 H
Calcium 9.2
Vital Signs:
Vital Signs
Temp Pulse Resp BP Pulse Ox
98 F 69 16 136/71 94
01/18/24 07:02 01/18/24 07:02 01/18/24 07:02 01/18/24 07:02 01/18/24 10:24
I&O
01/17/24 01/18/24 01/19/24
06:59 06:59 06:59
Intake Total 0 / 0 450 / 450
Balance 0 / 0 450 / 450
Physical Exam
-
General: Well Developed and No Apparent Distress
HEENT: Normocephalic, Atraumatic and Moist Mucous Membranes
Respiratory: Clear to Auscultation
Cardiac: Regular Rhythm, S1/S2 and Murmur; Negative Rub or Gallop
GI: Soft, Nontender, Nondistended and Normal Bowel Sounds; Negative Organomegaly
Rectal: Deferred by Provider
Musculoskeletal: No Clubbing, No Cyanosis and No Edema
Skin: Negative Rash
Neuro: Awake, AO x 3, No Motor Deficits and Nonfocal/Grossly Intact
Psych: Calm
[2024-01-18 11:12] VITALS: BP 129/71
--- NOTE | 2024-01-18 13:17 | W.PN.CARDCBS ---
Today's Communication / Plan
-
for R and L cath tomorrow
for Echo tomorrow
maintain current med therapy
Impression / Plan
-
Assess:
Presented 01/16/2024 with shortness of breath, fatigue
Shortness of breath/fatigue
Elevated troponin, peak 0.579 concern for possible non-STEMI
Abnormal D-dimer with negative CT for PE
Pleural effusions
Hypothyroidism/abnormal TSH/normal free T4
Hypertension
History of right upper extremity DVT secondary to PICC line 2019
Mild aortic stenosis
History of gastric cancer status postgastrectomy
CVA
Echo 09/19/22: EF 70 to 75% with mild MR, mild aortic stenosis and mild aortic regurgitation, mean gradient 11.
Echo:ordered
Plan:
NSTEMI with dropping troponin and improved symptoms
DAPT was started on adm and symptoms improved, cont for now
Cont BB, ARB and statin
Plan for echo and Cath on Friday (discussed with patient and she is aggreable)
Acute Kidney Injury
No further Lasix
Creat improved
Follow renal function
Can assess RHC (at time of [facility]) on Friday to better assess filling pressures
For R and L heart cath Friday
Total time 50 min
Plan discussed with patient, patient's family (Daughter) at bedside and hospitalist
HPI 01/17/2024:
78-year-old female with past medical history of hypothyroidism, DVT, stroke, mild aortic stenosis presents to [facility] with abnormal D-dimer, fatigue, and shortness of breath. She has been feeling poorly for several weeks with no energy,
severe tiredness, and fatigue. She had outpatient lab work which revealed a D-dimer of 11 and a proBNP of 900. She was sent to the emergency room for further evaluation. CT scan of the chest revealed no pulmonary embolism but mild pleural
effusions. Her troponin was found to be abnormal at 0.4. She denies any chest pains. She has been feeling poorly for several weeks. The symptoms have been gradual in onset. She denies any orthopnea, PND, or edema. She has been sleeping
frequently. She has no fevers or chills. She has no coughing or wheezing. She has no palpitations or syncope. Her TSH was also abnormal but free T4 was normal. She is currently lying comfortably in bed not hypoxic.
Progress Note - Motion Study Engineer
Subjective
Date of Service: January 18, 2024
no recur of CP or SOB
Objective
Labs:
01/17/24 07:15
01/18/24 07:50
Labs
Hgb 11.9 g/dL (12.0-16.0) L 01/17/24 07:15
Hct 33.9 % (37.0-47.0) L 01/17/24 07:15
Plt Count 267 10^3/uL (130-400) 01/17/24 07:15
Sodium 139 mmol/L (135-145) 01/18/24 07:50
Potassium 3.5 mmol/L (3.5-5.1) 01/18/24 07:50
BUN 29 mg/dl (7-17) H 01/18/24 07:50
Creatinine 1.1 mg/dL (0.6-1.0) H 01/18/24 07:50
Glucose 101 mg/dl (70-99) H 01/18/24 07:50
Troponins
01/16/24 01/16/24 01/17/24
15:14 20:20 02:11
Troponin I 0.486 H* 0.579 H* 0.533 H*
01/17/24
07:15
Troponin I 0.483 H*
Vital Signs and I&O:
Vital Signs
Temp Pulse Resp BP Pulse Ox
97.7 F 66 16 129/71 96
01/18/24 11:12 01/18/24 11:12 01/18/24 11:12 01/18/24 11:12 01/18/24 11:12
Vital Signs
Temp Pulse Resp BP Pulse Ox
97.7 F 66 16 129/71 96
01/18/24 11:12 01/18/24 11:12 01/18/24 11:12 01/18/24 11:12 01/18/24 11:12
Intake & Output
01/16/24 01/17/24 01/18/24 01/19/24
06:59 06:59 06:59 06:59
Intake Total 0 / 0 450 / 450
Balance 0 / 0 450 / 450
Physical Exam
Physical Exam
Well appearing, sitting up in bed eating lunch and visiting with family at bedside
RRR, Nl S1 and S2, no S3 or S4, 1/6 AHSM, no rubs and nl PMI
Lungs CTA b/l without wheezes, rales or rhonchi
Abd S, NT, ND, + BS
Ext with no edema
[2024-01-18 15:35] VITALS: BP 121/73
[2024-01-18] MEDS: LIPITOR 40 MG PO (19:49)
[2024-01-18 19:58] VITALS: BP 128/73
[2024-01-18 23:28] VITALS: BP 142/81
[2024-01-19] VITALS (16 sets, daily range): BP systolic 103–132; BP diastolic 59–82
[2024-01-19] MEDS: SYNTHROID 125 MCG PO (04:49)
[2024-01-19 08:14] LABS: Blood Urea Nitrogen 31 mg/dl (7-17); Calcium 9.7 mg/dl (8.4-10.2); Carbon Dioxide 21 mmol/L (22-30); Chloride 106 mmol/L (98-107); Estimated Creatinine Clearance 28 ml/min; Glucose 105 mg/dl (70-99); Potassium 3.7 mmol/L (3.5-5.1); Sodium 136 mmol/L (135-145); eGFR 41.83
[2024-01-19] MEDS: LOPRESSOR 25 MG PO ×2 (09:11→20:47)
[2024-01-19] MEDS: PLAVIX 75 MG PO (09:11)
[2024-01-19] MEDS: NORVASC 5 MG PO (09:11)
[2024-01-19] MEDS: LOW STRENGTH ASPIRIN 81 MG PO (09:11)
[2024-01-19] MEDS: HEPARIN 5000 UNITS SC (09:12)
[2024-01-19] MEDS: COZAAR 100 MG PO (09:12)
[2024-01-19] MEDS: FLUSH (NSS) 1 FLUSH IV (09:13)
[2024-01-19] MEDS: VITAMIN D3 (cholecalciferol) 75 MCG PO (09:15)
--- NOTE | 2024-01-19 10:43 | CM ---
Patient seen bedside with family, reports no needs at this time. Chart reviewed, for cardiac cath today. CM will continue to follow for all discharge planning needs.
Plan; home no needs likely.
--- NOTE | 2024-01-19 11:08 | W.PN.HOSP.TC ---
Today's Communication/Plan
-
ECHO
IVF
hold arb
cards recs
Assessment / Plan
Assessment / Plan
# Exertional dyspnea unclear etiology possibly CHF versus progression of aortic stenosis
# Elevated troponin likely NSTEMI
-No chest pain and thus heparin gtt was not started
-EKG with subtle ST wave depression
-Troponin peaked to 0.579 and now downtrended.
-Cardiac BNP of 900, s/p 40mg IV lasix [address] dose[address]
-CT PE shows no evidence of pulm embolism, small left greater than right bilateral pleural effusions
-Cardiology recommended holding off heparin for now
-Echocardiogram/cath.
#KRUNAL with mild acidosis
-trend bmp for now
-did receive IV contrast.
-Cr bumped to 1.3.
-Check urine studies
-bladder scan
-hold Losartan
-start 1/4 bicarb saline
# Hypokalemia
-Replete potassium
Gastric cancer in 2019 s/p chemotherapy/radiation/partial gastrectomy
Essential hypertension
-Continue amlodipine, losartan
Hypothyroidism
-Continue levothyroxine
Cholelithiasis
History of DVT of right upper extremity from PICC line
Full code
DVT prophylaxis heparin
d/w with family member at bedside on 01/18.
Anticipated Discharge: > 48 hours
Subjective/Interval History
-
Date of Service: January 19, 2024
no complaints
awaiting for ECOH/tentative Cath
Objective Data
-
Labs:
Laboratory Results
01/19/24
07:29
Sodium 136
Potassium 3.7
Chloride 106
Carbon Dioxide 21 L
BUN 31 H
Creatinine 1.3 H
Glucose 105 H
Calcium 9.7
Vital Signs:
Vital Signs
Temp Pulse Resp BP Pulse Ox
98.7 F 68 18 132/70 95
01/19/24 07:35 01/19/24 07:35 01/19/24 07:35 01/19/24 07:35 01/19/24 07:35
I&O
01/18/24 01/19/24 01/20/24
06:59 06:59 06:59
Intake Total 450 / 450 460 / 460
Balance 450 / 450 460 / 460
Physical Exam
-
General: Well Developed and No Apparent Distress
HEENT: Normocephalic, Atraumatic and Moist Mucous Membranes
Respiratory: Clear to Auscultation
Cardiac: Regular Rhythm, S1/S2 and Murmur; Negative Rub or Gallop
GI: Soft, Nontender, Nondistended and Normal Bowel Sounds; Negative Organomegaly
Rectal: Deferred by Provider
Musculoskeletal: No Clubbing, No Cyanosis and No Edema
Skin: Negative Rash
Neuro: Awake, AO x 3, No Motor Deficits and Nonfocal/Grossly Intact
Psych: Calm
Data Reviewed
-
Total Time Spent with Patient (in minutes): 58
[2024-01-19 13:39] LABS: ACT-LR - POC 192 Seconds (116-155)
[2024-01-19 13:51] LABS: ACT-LR - POC 258 Seconds (116-155)
--- NOTE | 2024-01-19 14:44 | ITS.CL.CATH ---
Fraternity Adviser - Catheterization
Cardiac Catheterization
Procedure Report:
LEFT HEART CATHETERIZATION
Date of Procedure: January 19, 2024
Referring: Dr. Brian Monsivais
PROCEDURES:
1. Coronary angiography
INDICATION: This is a 78 y/o female with a PMH notable for hypothyroidism, DVT, mild aortic stenosis who presented to [facility] with shortness of breath, fatigue, and elevated D-dimer. A CT scanning of the chest revealed no pulmonary
embolism. Her troponin was very mildly elevated with no obvious etiology. She is now referred for coronary angiography. Her troponin peaked at 0.579 ng/mL.
ACCESS: Right radial artery, 6 Andorran sheath. I encountered severe difficulty in engaging the origin of the right coronary artery and it was unclear if it was truly nondominant. Therefore, access was also obtained in the right common femoral
artery using ultrasound guidance and placement of a 6 Andorran sheath.
HEMODYNAMICS : (mmHg)
AO (s/d) : 118/63
CORONARY FINDINGS
DOMINANCE: Left
LEFT MAIN: Normal
LEFT ANTERIOR DESCENDING: The LAD arises normally from the left main and runs in the anterior interventricular groove. The LAD has diffuse minor irregularities to 30% over its course but no focal obstructive stenosis. 2 diagonal branches arise
from the mid LAD with minor irregularities.
CIRCUMFLEX: The circumflex is a large-caliber dominant vessel giving rise to a medium caliber bifurcating OM1. The circumflex continues in the AV groove and supplies 2 small posterolateral branches and a small PDA
RIGHT CORONARY ARTERY: The right coronary artery is found to be a small caliber nondominant vessel. The aortic root is very horizontal and multiple catheters were utilized to engage the RCA origin including JR4, JR 5, AR mod, Kamran, SERAFIN, and 6
Andorran JL 4 guide catheter. Ultimately access was changed from the right radial artery to the right common femoral artery. Access was obtained with ultrasound guidance. The catheters used for radial access were again utilized for access from the
right common femoral artery. With a little persistence and a little luck we are able to cannulate the origin of the RCA with an MPA 1 via the right common femoral access. The RCA is noted to be a small caliber nondominant vessel
VENTRICULOGRAPHY: Not done
RADIATION SUMMARY: Fluoro Time (min): 20.3, Dose (mGy): 288.5, DAP (Gy.cm2) : 27
Closure Device: 6 Andorran Angio-Seal, RFA and TR band, right radial artery
CONCLUSIONS
1. Nonobstructive coronary disease
RECOMMENDATIONS
1. Continued medical therapy
2. Awaiting results from echocardiogram
Copy to: Dr. Michael Wheeler, Dr. Tad Miguel
--- NOTE | 2024-01-19 14:45 | PTCARENOTE ---
received patient post cardiac cath, transferred to bed. right radial site with R band intact, positive radial pulse, continuos POX place on right hand, with initial reading of 95%, right femoral site with gauze and tegaderm dressing dry and intact.
positive pedal pulse and right foot warm to touch. vitals noted. pateint instructed on post cath restrictions , voiced understanding. call bond in reach. daughter at bedside.patient sleeping if not disturbed. plan of care on going.
[2024-01-19] MEDS: SODIUM BICARBONATE 1075 MEQ IV (14:48)
--- NOTE | 2024-01-19 19:00 | PTCARENOTE ---
patient post cardiac cath, right radial site with R band removed at 1730, tegaderm placed over site.small area of ecchymosis noted. no swelling. site checked at 1800, remained unchanged. site again checked at 1830 and noted to have larger area of
ecchymosis and swelling present , tegaderm dressing now taunt. good radial pulse palpated, site tender to touch. pox on right hand 95%. Dr Lagunas notified who instructed to contact CT surgery PA. notified CT surgery PA Yanelis Smith who came up to
room and assessed site. She assessed site, area marked, she discussed with Dr Mcdowell and she placed R band back on right radial site with 5 ml of air instilled at 1840 , at 1845 she instructed this nurse to place another 5ml of air in R band for a
total of 10ml. orders received to restart air removal. continuous POX on right hand with POX 93%. report given to night nurse. site assessed with night nurse who resumed care of patient.
[2024-01-19] MEDS: LIPITOR 40 MG PO (19:35)
--- NOTE | 2024-01-19 21:41 | W.PN.UPDATE ---
Update Note
Progress Note Update
Cardiology update note:
-Called to assess above pt's right radial site following left heart catheterization earlier in the day
-Removed TR-Band and tegaderm
-Site noted to be ecchymotic with mild oozing from puncture site, manual pressure applied x ~10 min with achievement of hemostasis
-Pressure dressing applied, can be removed in the AM. SQ heparin held tonight and can be resumed in the AM
-No significant hematoma was noted @ both right radial or right groin, no concerns for pseudoaneurysm
[2024-01-20 01:33] LABS: Urine Albumin Trace (Neg - Trace); Urine Bilirubin 1+ (Negative); Urine Character Clear (Clear); Urine Color Yellow; Urine Glucose Negative (Negative); Urine Ketone Negative (Negative); Urine Leukocyte Trace (Negative); Urine Nitrite Negative (Negative); Urine Occult Blood Negative (Negative); Urine Urobilinogen Negative (Neg - 1+)
[2024-01-20 02:03] LABS: Urine Sodium 51 mmol/L (30-90)
[2024-01-20 03:00] VITALS: BP 141/71
[2024-01-20 03:07] LABS: Urine Bacteria Few (Negative); Urine Red Blood Cell 0-2 /HPF (0-2)
[2024-01-20 06:00] VITALS: BMI 24.4
[2024-01-20] MEDS: SYNTHROID 125 MCG PO (06:04)
[2024-01-20 07:00] VITALS: BP 124/79
[2024-01-20 09:16] LABS: Blood Urea Nitrogen 28 mg/dl (7-17); Calcium 8.7 mg/dl (8.4-10.2); Carbon Dioxide 20 mmol/L (22-30); Chloride 106 mmol/L (98-107); Estimated Creatinine Clearance 36 ml/min; Glucose 96 mg/dl (70-99); Sodium 136 mmol/L (135-145); eGFR 57.31
[2024-01-20 09:27] LABS: Potassium 3.2 mmol/L (3.5-5.1)
--- NOTE | 2024-01-20 10:11 | W.PN.CARDCBS ---
Addendum entered and electronically signed by Lc Lagunas DO 01/20/24 11:36:
I saw and examined the patient.
The Interior Decorator Painting's note was reviewed and I agree with the note.
Comment:
Plan:
Nonobstructive CAD by cath; Plavix stopped
Lipids acceptable, stop Lipitor
Cont ASA and beta rodney and ARB. Cont Norvasc
Transition to PO Lasix and check BMP in one week
Synthroid adjustment as per primary service.
Outpt cardiac follow up to be arranged.
Discussed with son and nursing at bedside
Primary service updated.
Original Note:
Today's Communication / Plan
-
Nonobstructive CAD by cath
Stopped Plavix and Lipitor
Continue aspirin, beta-rodney, losartan, amlodipine
Replete K
20 mg p.o. Lasix daily With BMP in 1 week
Synthroid adjustment per primary service
Outpatient cardiac follow-up to be arranged
Impression / Plan
-
Assessment:
Presented 01/16/2024 with shortness of breath, fatigue
Elevated troponin, peak 0.579, nonischemic myocardial injury as with nonobstructive CAD by cath 01/19/24
Abnormal D-dimer with negative CT for PE
B/L pleural effusions
Hypothyroidism with abnormal TSH/normal free T4
Hypertension
History of right upper extremity DVT secondary to PICC line 2019
Mild aortic stenosis
History of gastric cancer status postgastrectomy
CVA
Echo 09/19/22: EF 70 to 75% with mild MR, mild aortic stenosis and mild aortic regurgitation, mean gradient 11.
Echo 01/19/24: EF 55 to 60%, mild concentric LVH, trace MR, mild with mean gradient of 12 mmHg, NEIDA 1.5 cm�, mild AI
Plan:
-Patient presented with shortness of breath and fatigue
-Troponin peaked at 0.579
-Status post cardiac catheterization 01/18 with nonobstructive CAD, so troponin elevation nonischemic myocardial injury rather than NSTEMI
-Right wrist site with some bruising and ecchymoses overnight. Check H&H this morning. No bruit appreciated, and bruising appears stable without further bleeding. If further issues, would consider ultrasound
-Will stop Plavix. Continue aspirin for now
-Echo with results as above, EF preserved with mild .
-Chest CT negative for PE, however did show bilateral pleural effusions. Was diuresed with IV Lasix with bump in creatinine, so has been held. Creatinine improved to 1.0 today. Right heart cath was not able to be completed 01/18. check ambulatory
pulse ox
-Replete K. Will place on p.o. Lasix 20 mg daily with BMP in 1 week for discharge
-Continue Lopressor, losartan, amlodipine
-TSH elevated at 16 with compensated free T4. D/w hospitalist, for adjustment in synthroid dosing
-will arrange OP cardiac follow up
-d/w nursing. reviewed results above with patient and son at bedside
HPI 01/17/2024:
78-year-old female with past medical history of hypothyroidism, DVT, stroke, mild aortic stenosis presents to [facility] with abnormal D-dimer, fatigue, and shortness of breath. She has been feeling poorly for several weeks with no energy,
severe tiredness, and fatigue. She had outpatient lab work which revealed a D-dimer of 11 and a proBNP of 900. She was sent to the emergency room for further evaluation. CT scan of the chest revealed no pulmonary embolism but mild pleural
effusions. Her troponin was found to be abnormal at 0.4. She denies any chest pains. She has been feeling poorly for several weeks. The symptoms have been gradual in onset. She denies any orthopnea, PND, or edema. She has been sleeping
frequently. She has no fevers or chills. She has no coughing or wheezing. She has no palpitations or syncope. Her TSH was also abnormal but free T4 was normal. She is currently lying comfortably in bed not hypoxic.
Progress Note - Radio Station Audio Engineer
Subjective
Date of Service: January 20, 2024
No shortness of breath at present. No chest pain
Objective
Labs:
01/17/24 07:15
01/20/24 07:27
Labs
Hgb 11.9 g/dL (12.0-16.0) L 01/17/24 07:15
Hct 33.9 % (37.0-47.0) L 01/17/24 07:15
Plt Count 267 10^3/uL (130-400) 01/17/24 07:15
Sodium 136 mmol/L (135-145) 01/20/24 07:27
Potassium 3.2 mmol/L (3.5-5.1) L 01/20/24 07:27
BUN 28 mg/dl (7-17) H 01/20/24 07:27
Creatinine 1.0 mg/dL (0.6-1.0) 01/20/24 07:27
Glucose 96 mg/dl (70-99) 01/20/24 07:27
Vital Signs and I&O:
Vital Signs
Temp Pulse Resp BP Pulse Ox
98.2 F 75 18 124/79 92
01/20/24 07:00 01/20/24 07:00 01/20/24 07:00 01/20/24 07:00 01/20/24 07:00
Vital Signs
Temp Pulse Resp BP Pulse Ox
98.2 F 75 18 124/79 92
01/20/24 07:00 01/20/24 07:00 01/20/24 07:00 01/20/24 07:00 01/20/24 07:00
Intake & Output
01/18/24 01/19/24 01/20/24 01/21/24
07:59 07:59 07:59 07:59
Intake Total 450 / 450 460 / 460 300 / 300
Balance 450 / 450 460 / 460 300 / 300
Physical Exam
Physical Exam
GEN: No distress, awake, alert, oriented, EOMI x3
HEENT: supple, anicteric, mmm
LUNGS: CTA bilaterally, no wheezes/rales
CV: Reg, S1/S2, 2/6 syst LSB
ABD: soft, BS+, NT/ND
EXT: No cyanosis, clubbing, edema
NEURO: Gross non-focal
SKIN: Warm, pink, dry. No rash. Right wrist site soft, nontender to palpation, ecchymoses surrounding site.
--- NOTE | 2024-01-20 10:13 | CM ---
Addendum entered by Nahomi Navarro 01/20/24 13:38:
CM met with patient bedside, discussed PT recommendations, patient not interested in home health at this time. IMM reviewed, signed, placed in chart.
Original Note:
Patient seen with family, deny any needs to CM at this time. CM will continue to follow for all discharge planning needs.
Plan; home no needs likely, watch for VN needs.
[2024-01-20] MEDS: VITAMIN D3 (cholecalciferol) 75 MCG PO (10:21)
[2024-01-20] MEDS: PLAVIX PO ×2 (10:21→10:36)
[2024-01-20] MEDS: HEPARIN 5000 UNITS SC (10:21)
[2024-01-20] MEDS: KCL 40 MEQ PO (10:21)
[2024-01-20] MEDS: NORVASC 5 MG PO (10:22)
[2024-01-20] MEDS: LOPRESSOR 25 MG PO (10:22)
[2024-01-20] MEDS: LOW STRENGTH ASPIRIN 81 MG PO (10:23)
--- NOTE | 2024-01-20 10:44 | W.PN.HOSP.TC ---
Today's Communication/Plan
-
Dispo-replete kcl. home o2 eval. PT/OT. Plan for tentative dc later today.
Assessment / Plan
Assessment / Plan
# Exertional dyspnea likely secondary to aortic stenosis
# Elevated troponin likely nonischemic myocardial injury
-No chest pain and thus heparin gtt was not started
-EKG with subtle ST wave depression
-Troponin peaked to 0.579 and now downtrended.
-Cardiac BNP of 900, s/p 40mg IV lasix 1 dose[address]
-CT PE shows no evidence of pulm embolism, small left greater than right bilateral pleural effusions
-Cardiology recommended holding off heparin for now
-Cardiac catheterization with nonobstructive CAD. Echo with mild aortic stenosis.
-Plan to transition to 20mg lasix daily.
-ambulatory pulse o2 ordered.
#KRUNAL with mild acidosis likely pre-renal.
-trend bmp for now
-did receive IV contrast.
-Cr bumped to 1.3.
-bladder scan
-hold Losartan
-s/p bicarb saline provided prior to cath.
-Cr downtrended to baseline.
# Hypokalemia
-Replete potassium
Gastric cancer in 2019 s/p chemotherapy/radiation/partial gastrectomy
Essential hypertension
-Continue amlodipine, losartan
Hypothyroidism
-Continue levothyroxine
Cholelithiasis
History of DVT of right upper extremity from PICC line
Full code
DVT prophylaxis heparin
d/w with family member at bedside on 01/18.
PT/OT
Dispo-replete kcl. home o2 eval. PT/OT. Plan for tentative dc later today.
d/w wtih cards
More than 30 minutes spent in discharge including
Final examination of the patient
Summarizing hospital stay
Instructions for continuing care to all relevant caregivers
Preparation of discharge records, prescriptions, and referral forms
Total time spent (in minutes): 55
Anticipated Discharge: Today
Subjective/Interval History
-
Date of Service: January 20, 2024
Overnight with some oozing from R radial cath site
bleeding stopped
bruising noted
no pain.
Objective Data
-
Labs:
Laboratory Results
01/20/24 01/20/24
07:27 10:39
Hgb Pending
Hct Pending
Sodium 136
Potassium 3.2 L
Chloride 106
Carbon Dioxide 20 L
BUN 28 H
Creatinine 1.0
Glucose 96
Calcium 8.7
Vital Signs:
Vital Signs
Temp Pulse Resp BP Pulse Ox
98.2 F 75 18 124/79 92
01/20/24 07:00 01/20/24 10:22 01/20/24 07:00 01/20/24 10:22 01/20/24 07:00
I&O
01/19/24 01/20/24 01/21/24
06:59 06:59 06:59
Intake Total 460 / 460 300 / 300
Balance 460 / 460 300 / 300
Physical Exam
-
General: Well Developed and No Apparent Distress
HEENT: Normocephalic, Atraumatic and Moist Mucous Membranes
Respiratory: Clear to Auscultation
Cardiac: Regular Rhythm, S1/S2, Murmur and Other (+R radial pulse. bruising noted. ); Negative Rub or Gallop
GI: Soft, Nontender, Nondistended and Normal Bowel Sounds; Negative Organomegaly
Rectal: Deferred by Provider
Musculoskeletal: No Clubbing, No Cyanosis and No Edema
Skin: Negative Rash
Neuro: Awake, AO x 3, No Motor Deficits and Nonfocal/Grossly Intact
Psych: Calm
[2024-01-20] MEDS: KCL ELIXIR 40 MEQ PO (10:53)
[2024-01-20 11:25] LABS: Hematocrit 29.8 % (37.0-47.0); Hemoglobin 10.6 g/dL (12.0-16.0)
[2024-01-20 11:27] VITALS: BP 119/75
[2024-01-20 12:19] VITALS: O2SAT 94; O2SAT 96
--- NOTE | 2024-01-20 12:20 | RESPNOTE ---
Respiratory: Pulse oximetry 96% room air at rest. With ambulation 300 feet SpO2 94%, patient tolerated well no SOB.
--- NOTE | 2024-01-20 12:55 | W.DCSUMMARY ---
Discharge Summary
Discharge Data
Date of Admission: 01/19/24
Date of Discharge: 01/20/24
-
Pending Results: No
Hospital Course
78-year-old female past medical history of hypertension, hypothyroidism, gallstones, gastric cancer status post resection, chemotherapy and radiation who is presenting with shortness of breath. Patient was found to have elevated troponin. Patient
without chest pain as well as oral aspirin Plavix was started on heparin drip was not started per cardiology. Patient also received 1 dose of 40 mg IV Lasix with significant urinary output. D-dimer was elevated patient underwent CT chest which
showed no evidence of pulmonary embolism. Underwent echocardiogram and EF of 55 to 60%. No regional wall motion abnormality. Mild aortic stenosis. Patient also underwent cardiac catheterization with nonobstructive CAD. Patient had a bump in
creatinine which resolved with bicarbonate infusion as also with acidosis. Creatinine down trended. Cardiology recommended patient to be started on beta-rodney, aspirin and Lasix. Patient with also abnormal thyroid function and elevated TSH and
Synthroid dose was increased. Recommended outpatient BMP and thyroid function testing. Patient will follow-up with cardiology as outpatient. Patient did not qualify for home oxygenation.
Discharge Plan
-
Patient Disposition: Home (Routine Discharge)
Discharge Diagnosis/Procedures: Shortness of breath likely secondary to aortic stenosis versus mild diastolic CHF
Nonischemic myocardial injury
Hypokalemia
Abnormal TSH
Condition: Fair
Diet: 2 Gram Sodium
Activity: As tolerated
Driving Restrictions: No driving for 24 hours
Blood Work: BMP in 1 week
Thyroid function testing in 4 weeks.
Specialty Instructions: Weigh Daily- Call MD for wt gain/loss 3 lbs overnight/5 lbs in 1 week
Instructions: *DCA Heart Failure Instructions
Stand Alone Forms: DC Instructions- Cath/EP Lab
Referrals:
Lisette Sargent PA-C [Specified Professional Personl] - 02/04/24 12:40 pm (Cardiology followup appointment)
Segun Dunlap, [Family Provider] - in less than 1 week
Prescriptions:
New
furosemide 20 mg Tablet
20 mg PO DAILY 30 Days Qty: 30 0RF
metoprolol tartrate 25 mg Tablet
12.5 mg PO BID 30 Days Qty: 30 0RF
levothyroxine [Synthroid] 137 mcg tablet
137 mcg PO DAILY Qty: 30 0RF
aspirin 81 mg Tablet,Chewable
81 mg PO DAILY 30 Days Qty: 30 0RF
Continued
amlodipine 5 mg Tablet
5 mg PO DAILY
losartan 100 mg Tablet
100 mg PO DAILY
cholecalciferol (vitamin D3) [Vitamin D3] 25 mcg (1,000 unit) Tablet
75 mcg PO DAILY
Prolia 60 mg/mL Syringe
60 mg SC [id number]
Discontinued
levothyroxine 125 mcg Tablet
125 mcg PO DAILY
Discharge Date and Time
Print Language: ERITREAN
[2024-01-20 13:05] VITALS: BP 133/78; PULSE 72; O2SAT 95
[2024-01-20 15:11] VITALS: BP 126/74
--- NOTE | 2024-01-20 16:05 | PTCARENOTE ---
Discharge instructions reviewed with patient and son. Answered all questions. Removed peripheral IV and tele. Left via wheelchair with staff member. Son with patient and will transport home.
== END 2024-01-20 15:45 | disposition home or self-care (01) | DRG 287 ==
LOC: 4 EAST ACU 09:27
PROVIDERS: Internal Medicine Interventional Cardiology; Nurse Practitioner; Physician Assistant; ADMITTING PHYSICIAN Hospitalist; ATTENDING PHYSICIAN Hospitalist; CONSULT PHYSICIAN Internal Medicine Cardiovascular Disease; EMERGENCY PHYSICIAN Emergency Medicine; FAMILY PHYSICIAN Family Medicine
PROC: B2111ZZ Fluoroscopy of Multiple Coronary Arteries using Low Osmolar Contrast (ICD-10-PCS; 2024-01-19)
PROC: 4A023N7 Measurement of Cardiac Sampling and Pressure, Left Heart, Percutaneous Approach (ICD-10-PCS; 2024-01-19)
DX: I35.0 Nonrheumatic aortic (valve) stenosis (principal); E87.20 Acidosis, unspecified; J91.8 Pleural effusion in other conditions classified elsewhere; I5A Non-ischemic myocardial injury (non-traumatic); I50.30 Unspecified diastolic (congestive) heart failure; I11.0 Hypertensive heart disease with heart failure; E03.9 Hypothyroidism, unspecified; E87.6 Hypokalemia; I25.10 Atherosclerotic heart disease of native coronary artery without angina pectoris; K80.20 Calculus of gallbladder without cholecystitis without obstruction; R01.1 Cardiac murmur, unspecified; R79.1 Abnormal coagulation profile; R79.89 Other specified abnormal findings of blood chemistry; Z79.890 Hormone replacement therapy; Z79.899 Other long term (current) drug therapy; Z85.028 Personal history of other malignant neoplasm of stomach; Z92.3 Personal history of irradiation; Z92.21 Personal history of antineoplastic chemotherapy; Z90.3 Acquired absence of stomach [part of]; Z86.73 Personal history of transient ischemic attack (TIA), and cerebral infarction without residual deficits; Z86.718 Personal history of other venous thrombosis and embolism; Z82.49 Family history of ischemic heart disease and other diseases of the circulatory system
CPT/HCPCS: 71275; 80048; 80053; 80061; 81003; 81015; 82570; 83880; 84300; 84439; 84443; 84484; 85014; 85018; 85025; 85347; 85379; 87086; 87811; 93005; 93306; 93454; 94761; 97162; 99285; C1760; C1894; J7030; Q9967

== ENCOUNTER 2024-01-26 23:38 | Inpatient (IN) | payer MEDICARE, OTHER, SELFPAY ==
[2024-01-26 20:42] VITALS: BP 99/66
[2024-01-26 20:55] VITALS: BMI 24.4
[2024-01-26 21:00] VITALS: BP 104/75
[2024-01-26 21:12] LABS: % Basophils 0.7 % (0-2); % Eosinophils 0.6 % (0-6); % Immature Granulocytes 1.2 % (0-0.5); % Lymphocytes 8.9 % (20.5-51.1); % Neutrophils 80.6 % (42.2-75.2); Absolute Basophils 0.1 10^3/uL (0-0.2); Absolute Eosinophils 0.1 10^3/uL (0-0.7); Absolute Immature Granulocytes 0.2 10^3/uL (0-0.05); Absolute Lymphocytes 1.3 10^3/uL (1.2-3.4); Absolute Monocytes 1.2 10^3/uL (0.1-0.6); Absolute Neutrophils 11.8 10^3/uL (1.4-6.5); Hematocrit 37.3 % (37.0-47.0); Hemoglobin 13.1 g/dL (12.0-16.0); Mean Corp Hgb Conc. 35.1 g/dL (33.0-37.0); Mean Corpuscular Hgb 29.8 pg (27.0-31.0); Mean Corpuscular Volume 84.8 fL (81.0-99.0); Mean Platelet Volume 9.5 fL (7.4-10.4); Nucleated Red Blood Cells % 0 %; Platelet Count 340 10^3/uL (130-400); Red Cell Dist. Width 13.8 % (11.5-14.5); White Blood Cell Count 14.7 10^3/uL (4.8-10.8)
[2024-01-26 21:29] LABS: ALT (SGPT) 14 U/L (0-35); AST (SGOT) 32 U/L (14-36); Albumin 4.1 g/dl (3.5-5.0); Alkaline Phosphatase 78 U/L (38-126); Blood Urea Nitrogen 31 mg/dl (7-17); Calcium 8.8 mg/dl (8.4-10.2); Carbon Dioxide 16 mmol/L (22-30); Chloride 104 mmol/L (98-107); Estimated Creatinine Clearance 25 ml/min; Glucose 121 mg/dl (70-99); Potassium 4.1 mmol/L (3.5-5.1); Sodium 140 mmol/L (135-145); Total Bilirubin 1.2 mg/dl (0.2-1.3); Total Protein 7.1 g/dl (6.3-8.2); eGFR 38.27
--- NOTE | 2024-01-26 21:40 | ED.GENMED ---
History of Present Illness
General
Chief Complaint: Breathing Problem
Source: patient and family (Son)
Exam Limitations: none
Time Seen by Provider: 01/26/24 21:08
History of Present Illness
History of Present Illness:
This is a 78 year old female that is brought in by family with c/o SOB. States that this started about a month ago. States that she had gone to see the PCP and they did labs States that they were concerned that she was in heart failure. States that
on January 15 she came here to the ER. States that she was here for 4 days. States that she had no appetite and was very fatigued. States that her BP was also elevated at that time and D-dimer was up. Patient had a Cardiac cath and ECHO. States
that they found that her thyroid level was abnormal. Patient was negative for PE and her ECHO was normal. States that she was discharge on the . Son states that she has been going down him really since she got home. States that she can hardly
walk or sit up as she is SOB. States that now she is struggling to stand and it is getting worse. States that she is SOB. Denies any fever, chills, chest pain, abd pain, nausea, vomiting, diarrhea, headache, dizziness, urinary burning.
Past History
Past History
ED Past Medical History: Cancer (gastric 2019 - chemo, radiation, partial gastrectomy), HTN, Hypothyroidism, Other (Cholilithiasis, ) and Other (Hx DVT RUE after PICC insertion. 2019. Tx with Eliquis)
ED Past Surgical History: Cholecystectomy, Gynecological (Tubal, ), Orthopedic (toe amputation) and Other (partial gastrectomy, Right breast calcification removed)
Social History
Tobacco: Non-smoker
Alcohol: None
Drug: None
Personal:
Living: with family
Review of Systems
Review of Systems
All Other Systems: ROS reviewed and negative except as documented in HPI and ROS
Constitutional: Reports no symptoms; Denies fever or chills
EENT: Reports no symptoms
Respiratory: Reports trouble breathing; Denies cough
Cardiac: Reports no symptoms; Denies chest pain
ABD/GI: Reports no symptoms; Denies abdominal pain, nausea, vomiting or diarrhea
: Reports no symptoms; Denies dysuria, frequency or urgency
Musculoskeletal: Reports no symptoms
Skin: Reports no symptoms
Neurological: Reports no symptoms; Denies dizzy or headache
Psychiatric: Reports no symptoms
Phy Exam
General Physical Exam
General Presentation: mild distress
General age: appears stated age
General Skin: warm and dry
General Habitus: elderly
General Mental: alert
General Hydration: appears well hydrated
ENT Exam
ENT Exam: TM's normal, pharynx normal and neck supple
Eye Exam
Eye Exam: EOMI
Cardiovascular Exam
Cardiovascular Exam: regular rate/rhythm, no edema and normal peripheral pulses
Pulmonary Exam
Pulmonary Exam: lungs clear, no respiratory distress, no rales, chest non tender, no crackles, no rhonchi, no wheezing and no cough
Gastrointestinal Exam
Gastrointestinal Exam: normal bowel sounds, non tender, soft, no organomegaly, no pulsatile mass and non distended
Musculoskeletal Exam
Musculoskeletal Exam: full ROM and no edema
Skin Exam
Skin Exam: normal color, warm/dry, no rash and no petechia
Psychiatric Exam
Psychiatric Exam: normal mood/affect
Scores
Heart Failure Risk
Heart Failure Risk Score: Yes
History of Stroke or TIA: No
History of intubation for respiratory distress: No
Heart rate on ED arrival >/= 110: Yes
SaO2 <90% on arrival on room air: Yes
HR >/=110 during 3min walk test (or too ill to perform test): Yes
ECG has acute ischemic changes: No
Urea >/=12mmol/L (BUN 33.6mg/dL): No
Serum CO2>/=35mmol/L: No
Troponin I or T elevated to MD Level (0.4mg/dL): Yes
NT-proBNP >/=5,000ng/L (5,000pg/ml): No
HF Risk Score: 5
Admission Status: VERY HIGH RISK 39.8% Consider admission to hospital
Course
Orders/Labs/Results
Orders:
Orders
01/26/24 20:52
Electrocardiogram (*1) Urgent
Reason for Study: Other
Other Reason for Exam: Respiratory Distress
EKG- Treatment ONCE
01/26/24 20:54
Complete Blood Count/With Diff Urgent
Comprehensive Metabolic Panel Urgent
Free T4 Urgent
NT-proBNP Urgent
TSH Reflex To Free T4 Urgent
Comment: ADD ON
Troponin I Urgent
01/26/24 21:39
CR Chest - 2 Views Urgent
Comment:
Reason For Exam: SOB
01/26/24 21:43
Add On- LAB Urgent
Tests Added?: TSH with free T4
Abnormal Lab Results
01/26/24
20:54
WBC 14.7 H 10^3/uL
(4.8-10.8)
Abs Immat Gran (auto) 0.2 H 10^3/uL
(0-0.05)
Absolute Neuts (auto) 11.8 H 10^3/uL
(1.4-6.5)
Absolute Monos (auto) 1.2 H 10^3/uL
(0.1-0.6)
Immature Gran % 1.2 H %
(0-0.5)
Neutrophils % 80.6 H %
(42.2-75.2)
Lymphocytes % 8.9 L %
(20.5-51.1)
Carbon Dioxide 16 L mmol/L
(22-30)
BUN 31 H mg/dl
(7-17)
Creatinine 1.4 H mg/dL
(0.6-1.0)
Glucose 121 H mg/dl
(70-99)
Troponin I 0.884 H* ng/ml
TSH (Reflex) 6.49 H uIU/ml
(0.47-4.68)
01/26/24 20:54
01/26/24 20:54
Leukocytosis, carbon dioxide low, Dehydration. Glucose nonfasting. Troponin 0.884, Pro-BNP 1989, TSH elevated to 6.49
Vital Signs
Initial and Last Documented VS:
Initial Vital Signs
Temp Pulse Resp BP Pulse Ox
97.6 F 117 30 99/66 87
01/26/24 20:42 01/26/24 20:42 01/26/24 20:42 01/26/24 20:42 01/26/24 20:42
Last Documented Vital Signs
Temp Pulse Resp BP Pulse Ox
97.6 F 92 24 116/73 96
01/26/24 20:42 01/26/24 22:00 01/26/24 22:00 01/26/24 22:00 01/26/24 22:00
MDM/Problems Addressed
Differential Diagnosis Includes:
Failure to Thrive. CHF,
MDM/Problems Addressed:
This is a 78 year old female that comes in with c/o SOB. Sons states that she was in the hospital and discharge on the . States that she has been going down hill since she got home to the point that now she is not walking and when she sits up
they have to stop and let her catch her breath.
Will get labs, chest x-ray. Explained to patient and family that she will be admitted as she was hypoxic on arrival and that if she is unable to walk she can't go home. Family is in agreement. Explained that she may need to go to Rehab for
strengthening.
Back into see patient. Explained that her Chest X-ray shows a Pleural effusion and there may be a Super imposed Pneumonia. Will Treat with antibiotics and Diuretics. Will admit patient. Hospitalist notified.
Chronic conditions affecting care:
NA
Acute Exacerbation and/or Progression of Chronic Illness:
NA
*Radiology
Radiology exam reviewed: preliminary read by ED provider (Chest- Effusion with questionable super imposed Pneumonia. )
*Pulse Oximetry
Patient hypoxic: yes
*EKG
Interpreted by ED Provider?: Yes
Heart Rate: 99
Rate: normal
Rhythm: sinus
[place]: normal axis
Interval: normal interval
QRS Pattern: normal QRS
Ischemia: non-specific ST changes (V2, V3, V4, V5, V6)
*[employer] Interpretation
Rate: normal
Heart Rate: 98
Rhythm: sinus and PAC's
*Critical Care Note
Total Time (30-74mins, 75-104mins- exclusive of procedures): Not Applicable
ED Attending Note
-
Portions of this chart may have been created with voice recognition software.� Occasional wrong word or��sound alike� substitutions may have occurred due to the inherent limitations of voice recognition software.
Discharge Plan
Departure
Patient Disposition: Admit
Date of Disposition: 01/26/24
Time of Disposition: 22:49
Admit to: Telemetry
Presentation/result/management discussed w/ accepting MD/DO: Hospitalist
Patient with high blood pressure during this ER visit?: No
Condition: Good
Discharge Problem:
SOB (shortness of breath), Elevated troponin, Pleural effusion, Pneumonia
Prescriptions:
No Action
amlodipine 5 mg Tablet
5 mg PO DAILY
losartan 100 mg Tablet
100 mg PO DAILY
cholecalciferol (vitamin D3) [Vitamin D3] 25 mcg (1,000 unit) Tablet
75 mcg PO DAILY
Prolia 60 mg/mL Syringe
60 mg SC [id number]
furosemide 20 mg Tablet
20 mg PO DAILY 30 Days Qty: 30 0RF
levothyroxine [Synthroid] 137 mcg tablet
137 mcg PO DAILY Qty: 30 0RF
aspirin 81 mg Tablet,Chewable
81 mg PO DAILY 30 Days Qty: 30 0RF
acetaminophen [Tylenol Extra Strength] 500 mg Tablet
500 mg PO Q6HPRN PRN (Reason: mild pain)
Referrals:
Segun Dunlap, DO [Family Provider] -
Interventions
Interventions:
*Risk Screen - Suicide Last Done: 01/26/24 20:42
*General Assessment Last Done: 01/26/24 20:42
*Neglect/Abuse Screening Last Done: 01/26/24 20:42
ED- Fall Risk Assessment Last Done: 01/26/24 21:00
ED- Cardiac Assessment Last Done: 01/26/24 21:00
ED- Pulmonary Assessment Last Done: 01/26/24 21:00
Discharge Date and Time
Print Language: BAHAMIAN
[2024-01-26 21:45] LABS: NT-proBNP 1990 pg/ml; Troponin I 0.884 ng/ml
[2024-01-26 22:00] VITALS: BP 116/73
[2024-01-26 22:29] LABS: TSH Reflex To Free T4 6.49 uIU/ml (0.47-4.68)
--- NOTE | 2024-01-26 22:55 | HPS.HSE ---
Family Physician
-
Family Physician: Segun Dunlap
Chief Complaint
-
sob , pro, fatigue
History of Present Illness
78-year-old female complaining of complaining of shortness of breath for the past month. She also complains of no appetite and feeling fatigued. According to her son she can hardly walk or sit up due to her shortness of breath progressively over
the last month. Over the past 6 days her son says by the time she walks from the bathroom to her bed she is completely winded and he needs to help her. She was 87% on room air is currently 91-93% on 4 L nasal cannula.
She was admitted 01/15 - 01/20/2024 secondary to shortness of breath with chest pain elevated troponins and bilateral pleural effusions the patient was treated with aspirin Plavix, IV Lasix . She underwent CT chest on 01/16/2024 showing no PE. 2D
echo echo was completed with EF 55 to 60% no wall abnormalities patient also underwent cardiac cath with nonobstructive CAD. Patient had abnormal thyroid function test with elevated TSH and her Synthroid dose was increased. She was recommended to
be started on beta-rodney aspirin and Lasix per cardiology.
Medical History
Past Medical History
Past Medical History: Reports Other (gastric cancer in 2019 s/p chemotherapy/radiation/partial gastrectomy, hypertension, hypothyroidism, cholelithiasis, DVT right upper extremity)
Past Surgical History: Reports Other ( Cholecystectomy, Orthopedic (toe amputation) and Other (partial gastrectomy))
Social History
Tobacco: Non-smoker
Alcohol: None
Drug: None
Personal: Single
Living: With Family
Employment: Retired
Family History
Family History: Not pertinent
Allergies / Home Medications
Allergies reflects when Allergies were last updated in [facility].
Home Medications with original date entered in [facility]
Allergy/Medication List:
Allergies
Allergy/AdvReac Type Severity Reaction Status Date / Time
No Known Allergies Allergy Unverified 06/05/11 09:31
Home Medications
amlodipine 5 mg tablet 5 mg PO DAILY Blood Pressure 01/16/24
cholecalciferol (vitamin D3) 25 mcg (1,000 unit) tablet (Vitamin D3) 75 mcg PO DAILY Supplement 01/16/24
denosumab 60 mg/mL subcutaneous syringe (Prolia) 60 mg SC [id number] bone loss 01/16/24
levothyroxine 125 mcg tablet 125 mcg PO DAILY Thyroid 01/16/24
losartan 100 mg tablet 100 mg PO DAILY Blood Pressure 01/16/24
Review of Systems
-
History Source: Patient and Family (Son at bedside)
A 12 point ROS was completed and negative except as noted: Yes
Constitutional: Reports Weight Loss (2 kg) and Fatigue; Denies Fever or Chills
EENT: Denies Sore Throat or Mouth Swelling
Respiratory: Reports Trouble Breathing (PRO, hypoxia); Denies Cough
Cardiac: Denies Chest Pain, Diaphoresis, Palpitations or Syncope
Abdomen/GI: Denies Abdominal Pain, Nausea, Vomiting, Diarrhea or Bloody Stools
: Denies Dysuria, Frequency, Flank Pain, Incontinence or Difficulty Voiding
Musculoskeletal: Denies Joint Pain or Muscle Pain
Skin: Denies Itching or Rash
Neurological: Denies Dizzy, Headache or Weakness
Endocrine: Reports No Symptoms
Hematologic/Lymphatic: Reports No Symptoms
Psych: Reports Calm
Physical Exam
Vital Signs
Vital Signs
Temp Pulse Resp BP Pulse Ox
97.6 F 92 24 116/73 96
01/26/24 20:42 01/26/24 22:00 01/26/24 22:00 01/26/24 22:00 01/26/24 22:00
Physical Exam
General: Comfortable, Conversant and Other (Hypoxia improved on 4 L nasal cannula); No Fever or Chills
HEENT: NormoCephalic, Anicteric, PERRLA, [place] Conjunctivae, No Ptosis and Oxygen (4 L nasal cannula)
Respiratory: Clear; No Wheezes, Rales or Rhonchi
Cardiac: S1/S2 and Regular Rhythm; No Murmur, Rub, Gallop, Peripheral Edema or JVD
Breast: Deferred by me
GI: Soft, Non Tender, Non Distended, Normal Bowel Sounds and No Hepatosplenomegaly
Rectal: Deferred by Provider
Genito-urinary: Deferred by me
Musculoskeletal: No Clubbing, No Cyanosis and No Edema
Skin: Warm and Dry; No Rash or Jaundice
Neuro: AO x 3, No Motor Deficits, Nonfocal/grossly intact, Cranial Nerves Intact and No Sensory Deficits; No Slurred Speech, Facial Droop or Tremors
Psych: Calm
Laboratory Results
-
01/26/24 20:54
01/26/24 20:54
Laboratory Results
Total Bilirubin 1.2 mg/dl (0.2-1.3) 01/26/24 20:54
AST 32 U/L (14-36) 01/26/24 20:54
ALT 14 U/L (0-35) 01/26/24 20:54
Alkaline Phosphatase 78 U/L (38-126) 01/26/24 20:54
Troponin I 0.884 ng/ml H* 01/26/24 20:54
Impression/Plan
-
Impression/plan:
Admit to telemetry
#Acute on chronic dyspnea clear etiology
#Acute hypoxic respiratory sufficiency unclear etiology
87% RA, 91-93% 4 L nasal cannula
BNP 1989
Weight 58.6 kg<60.3 EKG on 01/20/2024
-Recent negative CT PE study on 01/16/2024
-Consider repeat CT PE study if KRUNAL improves
-Consult pulmonary
#Nonischemic myocardial injury
Troponin 0.884 > 0.483 from prior on 01/17/2024
Recent cardiac cath nonobstructive CAD
-Continue metoprolol tartrate 12.5 mg twice daily, aspirin 81 mg daily
2D echo 01/19/2024: EF 55 to 60%, no wall abnormalities, mild LVH, mild aortic stenosis mean gradient 12 mmHg
#KRUNAL On possible CKD
Creat 1.4 was 1 on 01/20/2024
Hold losartan, Lasix
-Follow BMP
#Hx bilateral pleural effusions 01/16/2024
Was started on Lasix 20 mg daily will currently hold due to KRUNAL
#History of DVT of right upper extremity from PICC line
#Aortic stenosis
Mild aortic stenosis via echo mean gradient 12 mmHg
#Gastric cancer in 2019 s/p chemotherapy/radiation/partial gastrectomy
#Essential hypertension
-Continue amlodipine
-Hold losartan
#Hypothyroidism
Recent elevated TSH on 01/16/2024
-Continue levothyroxine at 137 mcg was increased from 125 mcg daily
- due 6 weeks for repeat TSH t4
#Cholelithiasis hx
DVT prophylaxis
Subcu heparin
Full code
[2024-01-26 22:59] LABS: Free T4 2.49 ng/dl (0.78-2.19)
[2024-01-26] MEDS: ZOSYN 50 IV (23:18)
[2024-01-26] MEDS: VANCOCIN 200 IV (23:18)
[2024-01-26] MEDS: LASIX 40 MG IV (23:18)
--- NOTE | 2024-01-26 23:46 | W.PN.UPDATE ---
Update Note
Progress Note Update
This is an addendum to the H&P written by Tammie Norton on 01/26/2024.� Patient seen and examined independently with CREDIT RATING INSPECTOR.�
78-year-old female past medical history of� gastric cancer in 2019 s/p chemotherapy/radiation/partial gastrectomy, hypertension, hypothyroidism, cholelithiasis, DVT right upper extremity presenting for dyspnea on exertion and hypoxemia.
She was recently admitted from 01/15 to 01/19 for dyspnea, EKG changes and troponin elevation.� CT PE was negative at that time.� She was diuresed and underwent cardiac catheterization which showed nonobstructive CAD.� She was started on aspirin,
metoprolol, and Lasix.
She continues to be dyspneic primarily with exertion.� At this time she is hypoxemic requiring 4 L of oxygen.� Labs show KRUNAL.� Cardiac BNP of 1900. Non ischemic troponin elevation.� On examination she appears euvolemic.� Would hold losartan, Lasix
and obtain CT PE when renal function has improved.� Pulmonary consulted.
[2024-01-27] VITALS (9 sets, daily range): BP systolic 103–130; BP diastolic 64–81; PULSE 84–98; O2SAT 94–95; BMI 23.7; BMI 23.8
[2024-01-27 00:31] LABS: COVID-19 Antigen Negative (Negative)
[2024-01-27 00:43] LABS: Troponin I 0.702 ng/ml
[2024-01-27 06:07] LABS: Troponin I 0.666 ng/ml
[2024-01-27 06:09] LABS: % Basophils 0.6 % (0-2); % Eosinophils 1.1 % (0-6); % Immature Granulocytes 1.2 % (0-0.5); % Lymphocytes 9.7 % (20.5-51.1); % Neutrophils 78.4 % (42.2-75.2); Absolute Basophils 0.1 10^3/uL (0-0.2); Absolute Eosinophils 0.1 10^3/uL (0-0.7); Absolute Immature Granulocytes 0.1 10^3/uL (0-0.05); Absolute Neutrophils 8.4 10^3/uL (1.4-6.5); Hematocrit 32.6 % (37.0-47.0); Hemoglobin 11.5 g/dL (12.0-16.0); Mean Corp Hgb Conc. 35.3 g/dL (33.0-37.0); Mean Corpuscular Hgb 30.7 pg (27.0-31.0); Mean Corpuscular Volume 86.9 fL (81.0-99.0); Mean Platelet Volume 9.3 fL (7.4-10.4); Nucleated Red Blood Cells % 0 %; Platelet Count 254 10^3/uL (130-400); Red Blood Cell Count 3.75 10^6/uL (4.20-5.40); Red Cell Dist. Width 13.5 % (11.5-14.5); White Blood Cell Count 10.7 10^3/uL (4.8-10.8)
[2024-01-27 06:40] LABS: ALT (SGPT) 11 U/L (0-35); AST (SGOT) 24 U/L (14-36); Albumin 3.3 g/dl (3.5-5.0); Alkaline Phosphatase 68 U/L (38-126); Blood Urea Nitrogen 32 mg/dl (7-17); Calcium 7.9 mg/dl (8.4-10.2); Carbon Dioxide 22 mmol/L (22-30); Chloride 105 mmol/L (98-107); Estimated Creatinine Clearance 25 ml/min; Glucose 96 mg/dl (70-99); Potassium 3.6 mmol/L (3.5-5.1); Sodium 140 mmol/L (135-145); Total Bilirubin 0.8 mg/dl (0.2-1.3); Total Protein 6.1 g/dl (6.3-8.2); eGFR 38.27
--- NOTE | 2024-01-27 07:24 | PTCARENOTE ---
Patient arrived on unit @0057 via stretcher from Ed, pulled over from stretcher to bed with assist x4. Patient AAOx3, denies any pain or discomfort. Skin assessment completed, oriented to unit, call bond within reach.
--- NOTE | 2024-01-27 08:42 | W.PN.HOSP.TC ---
Today's Communication/Plan
-
IV Lasix. Cardiology consult. Pulmonary consult.
Assessment / Plan
Assessment / Plan
Physical exam:
General: Acute on chronically ill
HEENT: Normocephalic, Atraumatic and Moist Mucous Membranes
Respiratory: Decreased breath sounds bilateral; Negative Wheezes, Rales or Rhonchi
Cardiac: Regular Rhythm and S1/S2, systolic murmur
GI: Soft, Nontender and Nondistended
Musculoskeletal: No Clubbing, No Cyanosis and presence B/L Edema
Neuro: Awake, Alert and Oriented
Psych: Calm
A/P:
Acute hypoxic respiratory insufficiency likely related to acute diastolic congestive heart failure and bilateral pleural effusions:
CTA negative for PE
Doubt infectious process
Bilateral pleural effusions noted
Given diuretics and antibiotics yesterday but ordered none for today.
Pulmonary consulted
Acute diastolic congestive heart failure:
IV diuretics, Lasix 40 mg IV daily (restarted today)
BNP upon admission 1989
Monitor strict I/O
Monitor daily weight
Monitor renal function and electrolytes
Reviewed latest echocardiogram on our system
Continue guideline-directed medical therapy for heart failure (GDMT)
Fluid restriction
Salt restriction
Heart failure education
Follow up clinical response
Cardiology consulted today-[place] texted cardiology today
Elevated troponin:
Nonischemic myocardial injury
Follow-up.
Nonobstructive CAD:
Continue aspirin beta-blockers
KRUNAL on CKD:
Likely cardiorenal component
Avoid nephrotoxic
Monitor renal function
Hypothyroidism:
Continue thyroid replacement
Gastric cancer:
Status post chemo, radiation, partial gastrectomy.
DVT prophylaxis-heparin SQ
CODE STATUS-full code
Total time spent on today's encounter was 52 minutes which included time spent in counseling the patient/family regarding diagnosis and treatment plan as listed above, goals of care, and symptom management. Case was discussed with nursing staff,
specialists, and care coordinators/case management. All labs and imaging personally reviewed by me. Remainder the time spent in detailed review of previous records, lab data, imaging, and other medical provider documentation.
Anticipated Discharge: > 48 hours
Subjective/Interval History
-
Date of Service: January 27, 2024
Patient endorses some shortness of breath. On supplemental oxygen. No chest pain. Afebrile
Objective Data
-
Labs:
Laboratory Results
01/26/24 01/27/24
20:54 05:20
WBC 14.7 H 10.7
Hgb 13.1 D 11.5 L
Hct 37.3 32.6 L
Plt Count 340 254 D
Sodium 140 140
Potassium 4.1 3.6
Chloride 104 105
Carbon Dioxide 16 L 22
BUN 31 H 32 H
Creatinine 1.4 H 1.4 H
Glucose 121 H 96
Calcium 8.8 7.9 L
Total Bilirubin 1.2 0.8
AST 32 24
ALT 14 11
Alkaline Phosphatase 78 68
Vital Signs:
Vital Signs
Temp Pulse Resp BP Pulse Ox
98.0 F 90 17 110/71 98
01/27/24 07:23 01/27/24 07:23 01/27/24 07:23 01/27/24 07:23 01/27/24 07:23
I&O
01/26/24 01/27/24 01/28/24
06:59 06:59 06:59
Intake Total 240 / 240
Output Total 75 / 75
Balance 165 / 165
[2024-01-27] MEDS: LOW STRENGTH ASPIRIN 81 MG PO (08:43)
[2024-01-27] MEDS: HEPARIN 5000 UNITS SC ×2 (08:43→20:42)
[2024-01-27] MEDS: VITAMIN D3 (cholecalciferol) 75 MCG PO (08:43)
[2024-01-27] MEDS: NORVASC 5 MG PO (08:44)
[2024-01-27] MEDS: SYNTHROID 137 MCG PO (08:50)
--- NOTE | 2024-01-27 09:14 | CON.PUL ---
Consultation
Consultation Request
Date/Time Consultation Requested: 01/27/24
Date/Time Consultation Performed: 01/27/24
Performing Provider: Siva
Reason for Consultation: SOB/Hypoxia
Medical History
-
History of Present Illness:
Patient is a 78-year-old female with past medical history of�gastric cancer in 2019 s/p chemotherapy/radiation/partial gastrectomy, hypertension, hypothyroidism, cholelithiasis, DVT right upper extremity presenting for dyspnea on exertion and
hypoxemia. She was recently admitted from 01/15-01/20/24 for dyspnea, EKG changes and troponin elevation.� CT PE was negative at that time.� She was diuresed and underwent cardiac catheterization which showed nonobstructive CAD.� She was started on
aspirin, metoprolol, and Lasix.
She continues to be dyspneic primarily with exertion.� She is placed on 4 L of oxygen.� Labs show KRUNAL.� Cardiac BNP of 1900. CXR showing edema, with more effusion noted posteriorly on lateral film.
Denies history of lung disease in the past, never smoker. She admits to lung cancer in the family in her sister who was a smoker.
Daughter states she has been significantly weak and fatigued, 'sleeping all the time.' She does admit to snoring but never had a sleep study. Patient states she cannot get out of bed longer than 1 hour due to weakness. Patient has symptoms
suggestive of depression including fatigue, anhedonia, psychomotor retardation, and hopelessness.
.
Past Medical History
Past Medical History: Other (see list below)
Social History
Tobacco: Non-smoker
Alcohol: None
Drug: None
Family History
Family History: Reviewed & Not Pertinent
Allergies / Home Medications
Allergies
Allergy/AdvReac Type Severity Reaction Status Date / Time
No Known Allergies Allergy Verified 01/26/24 20:56
Home Medications
�Medication �Instructions �Recorded �Confirmed �Last Taken �Type
amlodipine 5 mg tablet 5 mg PO DAILY Blood Pressure 01/16/24 01/26/24 01/26/24 History
cholecalciferol (vitamin D3) 25 75 mcg PO DAILY Supplement 01/16/24 01/26/24 01/26/24 History
mcg (1,000 unit) tablet (Vitamin
D3)
denosumab 60 mg/mL subcutaneous 60 mg SC [id number] bone loss 01/16/24 01/26/24 Unknown History
syringe (Prolia)
losartan 100 mg tablet 100 mg PO DAILY Blood Pressure 01/16/24 01/26/24 01/26/24 History
aspirin 81 mg chewable tablet 81 mg PO DAILY 30 days #30 tabs 01/20/24 01/26/24 01/26/24 Rx
furosemide 20 mg tablet 20 mg PO DAILY 30 days #30 tabs 01/20/24 01/26/24 01/26/24 Rx
levothyroxine 137 mcg tablet 137 mcg PO DAILY #30 tabs 01/20/24 01/26/24 01/26/24 Rx
(Synthroid)
acetaminophen 500 mg tablet 500 mg PO Q6HPRN PRN mild pain 01/26/24 01/26/24 01/25/24 History
(Tylenol Extra Strength)
Review of Systems
-
History Source: Patient
All other systems: Negative unless noted
Vitals / Labs / Diagnostic Testing
Vital Signs
Temp Pulse Resp BP Pulse Ox
98.0 F 90 17 110/71 98
01/27/24 07:23 01/27/24 07:23 01/27/24 07:23 01/27/24 07:23 01/27/24 07:23
Lab Data
01/27/24 05:20
01/27/24 05:20
Diagnostic Testing:
Physical Exam
-
HEENT: Normocephalic, Anicteric and Moist Mucous Membranes
Cardiovascular: S1/S2 and Regular Rhythm
Respiratory: Clear and Non-Labored Respirations
GI: Soft, Non Distended and Non Tender
Neurology: Awake, Alert, Oriented and Other (depressed/anhedonic appearing)
Skin: Warm, Dry and Good Color
General: Comfortable and Other (NAD)
Assessment
-
Patient is a 78-year-old female with past medical history of�gastric cancer in 2020 s/p chemotherapy/radiation/partial gastrectomy, hypertension, hypothyroidism, cholelithiasis, DVT right upper extremity presenting for dyspnea on exertion and
hypoxemia. She is placed on 4 L of oxygen.� Labs show KRUNAL.� Cardiac BNP of 1900. CXR showing edema, with more effusion noted posteriorly on lateral film. We are consulted for eval.
Acute hypoxic respiratory insufficiency
SOB
Mild CHF exacerbation
Progressive fatigue, weakness, psychomotor retardation
Suspicious for underlying depression
Snoring, suspect KATELIN, never had sleep study
KRUNAL, creat 1.4
Pleural effusion on CXR
Conditions present DEBUBBLIZER
History of gastric cancer in 2020 s/p chemotherapy/radiation/partial gastrectomy
Hypertension
Hypothyroidism
Cholelithiasis
DVT right upper extremity
Cholecystectomy
s/p toe amputation
Plan
Hypoxemia noted on arrival, O2 johnny 87
Currently saturating 98% on 4LNC, O2 order changed to allow for weaning
Can start reducing O2 requirements as tolerated
Home O2 evaluation in past did not show need for O2 at home
Denies history of lung disease in the past, never smoker. She admits to lung cancer in the family in her sister who was a smoker.
Daughter states she has been significantly weak and fatigued, 'sleeping all the time.' She does admit to snoring but never had a sleep study.
Patient states she cannot get out of bed longer than 1 hour due to 'weakness'
When asked to get out of bed, she falls limp and states 'I'm a failure'
Patient has symptoms suggestive of depression including fatigue, anhedonia, psychomotor retardation, and hopelessness.
Recommend psych consult
PT/OT eval ongoing as well
Suspect patient has mild CHF and deconditioning
CXR/CT obtained indicating pleural effusions, most pronounced on lateral film
Other imaging reviewed--recent CT chest neg for PE 01/16/24, I do not see need to repeat testing for PE
Prior ECHO results are reviewed indicating normal function
proBNP mildly elevated
Agree wtih diuresis
Will need outpatient pulmonary evaluation in our office for PFTs and 6MWT
Risk factors assessed for underlying sleep disordered breathing also noted, recommend outpatient PSG/sleep evaluation
Discussed with daughter at bedside
Reviewed with patient as well
We will follow
Diagnostic Data
Chest X-Ray: 01/26/24- Left greater than right bilateral pleural effusions with adjacent atelectasis. A superimposed infectious process can appear similar.
CT Scan: CHEST 01/16/24- 1. No evidence of pulmonary embolism.
2. Small left greater than right lateral pleural effusions with adjacent atelectasis.
3. Postoperative changes in the upper abdomen with mild wall thickening of the gastric remnant which may be due to underdistention however can be seen with gastritis.
4. Prior cholecystectomy with prominence of the biliary ducts, likely secondary to reservoir effect.
Echo: 01/19/24- 1. Left ventricle: Normal size and function with a visually estimated ejection fraction of 55-60%. No regional wall motion abnormality. Mild concentric LVH.
2. Right ventricle: Normal
3. Atria: Normal
4. Mitral valve: Trace mitral regurgitation
5. Aortic valve: Thickened and calcified aortic leaflets with a mean gradient of 12 mmHg and peak velocity of 2.31 m/s. The estimated aortic valve area is 1.5 cm2 when using an LVOT diameter of 1.8 cm. There is mild aortic
insufficiency.
6. Tricuspid valve: No tricuspid regurgitation
7. When compared to the most recent echocardiogram from 09/19/2022, mild aortic stenosis is now present with a mean aortic valve gradient of 12 mmHg. Otherwise the studies are quite similar
PFT's:
Reports and relevant images were personally reviewed.
Total time spent on this consultation __78__ includes review of history, physical exam, medications, laboratory data, personal review of imaging, extensive review of outpatient records, discussion with care team and respiratory therapy.
[2024-01-27] MEDS: LASIX 40 MG IV (12:03)
--- NOTE | 2024-01-27 14:49 | CON.CAR ---
Addendum entered and electronically signed by Benito Lopez MD 01/27/24 16:05:
I saw and examined the patient.
The STAFFING CONSULTANT or PA's note was reviewed and I agree with the note.
Comment: General: Well developed, well nourished in NAD.
Neck: Supple, no JVD, HJR, carotids +2 B/L, no bruits bilaterally.
Heart: Non displaced PMI, RRR, no murmurs, No S3, S4, no rubs.
Lungs: Scattered rhonchi at the bases
Abdomen: Normal bowel sounds, soft, non-tender, non-distended.
Extremities: No clubbing, cyanosis or edema bilaterally.
Neuro: Grossly nonfocal, awake, alert and oriented x3.
Cristel has a history of chronic diastolic CHF, nonocclusive CAD on catheterization in January 2024, hypothyroidism, hypertension, mild aortic stenosis, gastric cancer status postgastrectomy, CVA. She was admitted in January 2024 with shortness of
breath for 1 month and elevated troponin of 0.579. She had catheterization with nonobstructive CAD. She was given IV Lasix but developed renal insufficiency during last admission and it was discontinued. She has had shortness of breath since
discharge 1 week ago. She had orthopnea as well but no weight gain or edema. She presents now with acute hypoxemia and suspected acute diastolic CHF.
Patient is being seen by pulmonary as well. Pleural effusions are too small for thoracentesis. Will attempt to diurese with IV Lasix. If she fails to improve may need to consider right heart catheterization. The patient is currently on 4 L of
oxygen. Discussed with patient and family at bedside.
Original Note:
Consultation
Consultation Request
Date/Time Consultation Requested: 01/27/24 at 0848
Date/Time Consultation Performed: 01/27/24 at 1158
Requesting Provider: Dr. Fuentes
Performing Provider: Dr. Lopez
Reason for Consultation: Hypoxia, posisble acute HF
Medical History
-
History of Present Illness:
Patient came to [facility] last night with increased SOB and was admitted with possible acute HF. Patient was just admitted to 01/16/24 until 01/20/24 with SOB x1 month. Troponin was up to 0.579 that admission and echo showed a preserved EF without WMA.
Patient had LHC that admission that showed nonobstructive CAD and patient was managed as a nonischemic myocardial injury Troponin elevation. Patient had B/L pleural effusions on CT chest that was negative for PE. Patient was given Lasix 40 mg IV and
developed KRUNAL last admission and it was stopped. Patient was sent home on Lasix 20 mg PO dialy, but her family reports that she began to fail almost as soon as she got home with increased fatigue and SOB. Patient came back to [facility] last night and CXR
showed ongoing small B/L pleural effusions. Her pro-BNP was 933 last admission and is 1990 now. If recorded weights are correct then patient weighs less now than last admission. Cre has been 1.4 this admission.
PMH:
Recent admission for elevated Troponin and possible acute HF 01/16/24 until 01/20/24
Nonobstructive CAD by cath 01/19/24
Hypothyroidism with abnormal TSH/normal free T4
Hypertension
History of right upper extremity DVT secondary to PICC line 2020
Mild aortic stenosis, mean gradient 12 mmHg and NEIDA 1.5 cm sq
History of gastric cancer status postgastrectomy
h/o CVA
Past Medical History
Past Medical History: Other (in HPI)
Past Surgical History: Bowel Resection (distal gastrectomy with a gastrojejunostomy 05/04/19) and Cholecystectomy
Social History
Tobacco: Non-Smoker
Alcohol: None
Drug: None
Living: With Family
Family History
Family History: Cancer and Hypertension
Allergies / Home Medications
Allergy/AdvReac Type Severity Reaction Status Date / Time
No Known Allergies Allergy Verified 01/26/24 20:56
�Medication �Instructions �Recorded �Confirmed �Type
amlodipine 5 mg tablet 5 mg PO DAILY Blood Pressure 01/16/24 01/26/24 History
cholecalciferol (vitamin D3) 25 75 mcg PO DAILY Supplement 01/16/24 01/26/24 History
mcg (1,000 unit) tablet (Vitamin
D3)
denosumab 60 mg/mL subcutaneous 60 mg SC [id number] bone loss 01/16/24 01/26/24 History
syringe (Prolia)
losartan 100 mg tablet 100 mg PO DAILY Blood Pressure 01/16/24 01/26/24 History
aspirin 81 mg chewable tablet 81 mg PO DAILY 30 days #30 tabs 01/20/24 01/26/24 Rx
furosemide 20 mg tablet 20 mg PO DAILY 30 days #30 tabs 01/20/24 01/26/24 Rx
levothyroxine 137 mcg tablet 137 mcg PO DAILY #30 tabs 01/20/24 01/26/24 Rx
(Synthroid)
acetaminophen 500 mg tablet 500 mg PO Q6HPRN PRN mild pain 01/26/24 01/26/24 History
(Tylenol Extra Strength)
Review of Systems
-
History Source: Patient and Family (daughter sitting bedside)
All other systems: Negative unless noted
Physical Exam
Vital Signs
Temp Pulse Resp BP Pulse Ox
97.8 F 87 17 114/75 95
01/27/24 10:57 01/27/24 10:57 01/27/24 10:57 01/27/24 10:57 01/27/24 10:57
GEN: NAD. AAO x3
HEENT: EOMI, MMM
LUNGS: Wearing oxygen at 4 L NC. CTA B/L without wheeze or rales
CV: Reg, S1/S2, 2/6 syst LSB
ABD: soft, BS+, NT, ND
EXT: No cyanosis, clubbing, lesions or edema B/L
NEURO: Gross non-focal
SKIN: Warm, pink and dry. No rash.
Lab Results
01/27/24 05:20
01/27/24 05:20
Troponin I 0.666 ng/ml H* 01/27/24 05:20
Mov-P-Ybzvuuwznbj Pept 1990 pg/ml 01/26/24 20:54
Impression / Plan
-
PCP: Dr. Dunlap
Cardiology: Dr. DEANGELO Wheeler
Assessment:
Acute hypoxic respiratory insufficiency
Possible acute HFpEF
Small B/L pleural effusions
KRUNAL
Recent admission for elevated Troponin and possible acute HF 01/16/24 until 01/20/24
Elevated troponin 0.884 on admission and trending down thereafter
Nonobstructive CAD by cath 01/19/24
Hypothyroidism with abnormal TSH/normal free T4
Hypertension
History of right upper extremity DVT secondary to PICC line 2020
Mild aortic stenosis, mean gradient 12 mmHg and NEIDA 1.5 cm sq
History of gastric cancer status postgastrectomy
h/o CVA
Echo 09/19/22: EF 70 to 75% with mild MR, mild aortic stenosis and mild aortic regurgitation, mean gradient 11.
Echo 01/19/24: EF 55 to 60%, mild concentric LVH, trace MR, mild with mean gradient of 12 mmHg, NEIDA 1.5 cm sq, mild AI
Plan:
-Patient came to [facility] last night with increased SOB and was admitted with possible acute HF. Patient was just admitted to 01/16/24 until 01/20/24 with SOB x1 month. Troponin was up to 0.579 that admission and echo showed a preserved EF without WMA.
Patient had C that admission that showed nonobstructive CAD and patient was managed as a nonischemic myocardial injury Troponin elevation. Patient had B/L pleural effusions on CT chest that was negative for PE. Patient was given Lasix 40 mg IV and
developed KRUNAL last admission and it was stopped. Patient was sent home on Lasix 20 mg PO dialy, but her family reports that she began to fail almost as soon as she got home with increased fatigue and SOB. Patient came back to [facility] last night and CXR
showed ongoing small B/L pleural effusions. Her pro-BNP was 933 last admission and is 1989 now. If recorded weights are correct then patient weighs less now than last admission. Cre has been 1.4 this admission.
-Weight is lower than previous and ongoing KRUNAL with Cre 1.4, but pro-BNP is higher and patient with hypoxia. Pulmonology note reviewed and agree with attempts to diurese.
-Cont Lasix 40 mg IV daily. Patient was taking Lasix 20 mg PO daily prior to admission, but this was just started at last d/c.
-If patient fails to improve with attempts at diuresis then would consider RHC which could not be performed at time of [facility] last week. Explained procedure to patient and daughter, but they are not sure they would want another procedure.
-Agree with the Pulm attending that patient appears globally weak and that a psychiatry consult might be helpful. Synthroid dose adjustments also noted.
-Troponin was 0.884 on admission and trended down thereafter. Will manage as a nonischemic myocardial injury Troponin elevation due to nonobstructive CAD by cath last admission. ECG without acute ischemic change.
-Right radial access site from [facility] examined and there is a +2 radial pulse and ecchymosis is resolving, no hematoma or thrill.
-Cont aspirin 81 mg daily
--- NOTE | 2024-01-27 16:17 | CM ---
Alert awake oriented patient who lives with her son Tressa Pedraza [phone].They live in an apartment with 6 steps to enter. She is assisted in all activates of daily living.She in on new oxygen in hospital.PT OT harjeet done suggested SNF .
Will need SNF choices.
Had [facility] in past . No SNF hx
Pharmacy [facility]
PCP Dr Dunlap
PLAN to SNF after located
[2024-01-28 03:40] VITALS: BP 129/76
[2024-01-28] MEDS: SYNTHROID 137 MCG PO (05:34)
[2024-01-28 05:35] LABS: % Basophils 0.3 % (0-2); % Eosinophils 1.1 % (0-6); % Immature Granulocytes 0.7 % (0-0.5); % Lymphocytes 5.8 % (20.5-51.1); % Monocytes 8.5 % (1.7-9.3); % Neutrophils 83.6 % (42.2-75.2); Absolute Eosinophils 0.1 10^3/uL (0-0.7); Absolute Immature Granulocytes 0.1 10^3/uL (0-0.05); Absolute Lymphocytes 0.7 10^3/uL (1.2-3.4); Absolute Monocytes 1.1 10^3/uL (0.1-0.6); Absolute Neutrophils 10.4 10^3/uL (1.4-6.5); Hematocrit 31.9 % (37.0-47.0); Hemoglobin 11.3 g/dL (12.0-16.0); Mean Corp Hgb Conc. 35.4 g/dL (33.0-37.0); Mean Corpuscular Hgb 29.6 pg (27.0-31.0); Mean Corpuscular Volume 83.5 fL (81.0-99.0); Mean Platelet Volume 9.5 fL (7.4-10.4); Nucleated Red Blood Cells % 0 %; Platelet Count 287 10^3/uL (130-400); Red Blood Cell Count 3.82 10^6/uL (4.20-5.40); Red Cell Dist. Width 13.7 % (11.5-14.5); White Blood Cell Count 12.4 10^3/uL (4.8-10.8)
[2024-01-28 05:59] VITALS: BMI 24.1
[2024-01-28 06:03] LABS: ALT (SGPT) 10 U/L (0-35); AST (SGOT) 25 U/L (14-36); Albumin 3.3 g/dl (3.5-5.0); Alkaline Phosphatase 72 U/L (38-126); Blood Urea Nitrogen 41 mg/dl (7-17); Calcium 8.4 mg/dl (8.4-10.2); Carbon Dioxide 22 mmol/L (22-30); Chloride 105 mmol/L (98-107); Estimated Creatinine Clearance 25 ml/min; Glucose 109 mg/dl (70-99); Potassium 3.5 mmol/L (3.5-5.1); Sodium 140 mmol/L (135-145); Total Bilirubin 0.6 mg/dl (0.2-1.3); Total Protein 6.1 g/dl (6.3-8.2); eGFR 38.27
[2024-01-28 07:00] VITALS: BP 130/79
--- NOTE | 2024-01-28 08:36 | W.PN.PUL3 ---
Today's Communication / Plan
-
Rapid improvement off O2, now no need for O2 at rest or with exertion
Mild CHF noted, but likely SOB mostly related to physical deconditioning and suspected acute depression
Diuresis ongoing per cards
Recommend psych eval
Would continue PT/OT evals, would benefit from SNF
No further recs from our standpoint, we will sign off at this time, please call with questions
Assessment
-
Patient is a 78-year-old female with past medical history of�gastric cancer in 2020 s/p chemotherapy/radiation/partial gastrectomy, hypertension, hypothyroidism, cholelithiasis, DVT right upper extremity presenting for dyspnea on exertion and
hypoxemia. She is placed on 4 L of oxygen.� Labs show KRUNAL.� Cardiac BNP of 1900. CXR showing edema, with more effusion noted posteriorly on lateral film. We are consulted for eval.
Acute hypoxic respiratory insufficiency, brief/resolved
SOB due to physical deconditioning
Mild CHF exacerbation
Progressive fatigue, weakness, psychomotor retardation
Suspicious for underlying depression
Snoring, suspect KATELIN, never had sleep study
KRUNAL, creat 1.4
Pleural effusion on CXR
Conditions present WEB COMMUNICATIONS SPECIALIST
History of gastric cancer in 2020 s/p chemotherapy/radiation/partial gastrectomy
Hypertension
Hypothyroidism
Cholelithiasis
DVT right upper extremity
Cholecystectomy
s/p toe amputation
Plan
Hypoxemia noted on arrival, O2 johnny 87
Placed on 4L but rapidly weaned to RA, now she has demonstrated no need for O2 at rest or with exertion
Denies history of lung disease in the past, never smoker.
She admits to lung cancer in the family in her sister who was a smoker.
Daughter states she has been significantly weak and fatigued, 'sleeping all the time.'
She does admit to snoring but never had a sleep study.
Patient states she cannot get out of bed longer than 1 hour due to 'weakness'
When asked to get out of bed, she falls limp and states 'I'm a failure' (daughter at bedside witnessed this)
Patient has symptoms suggestive of depression including fatigue, anhedonia, psychomotor retardation, and hopelessness.
This combined with physical deconditioning seems to be her predominant issue
Recommend psych consult
PT/OT eval ongoing as well
Suspect patient has mild CHF and deconditioning
CXR/CT obtained indicating pleural effusions, most pronounced on lateral film
Other imaging reviewed--recent CT chest neg for PE 01/16/24, I do not see need to repeat testing for PE
Prior ECHO results are reviewed indicating normal function
proBNP mildly elevated
Agree wtih diuresis
Will need outpatient pulmonary evaluation in our office for PFTs and 6MWT
Risk factors assessed for underlying sleep disordered breathing also noted, recommend outpatient PSG/sleep evaluation
Discussed with daughter at bedside
Reviewed with patient as well
Diagnostic Data
Chest X-Ray: 01/26/24- Left greater than right bilateral pleural effusions with adjacent atelectasis. A superimposed infectious process can appear similar.
CT Scan: CHEST 01/16/24- 1. No evidence of pulmonary embolism.
2. Small left greater than right lateral pleural effusions with adjacent atelectasis.
3. Postoperative changes in the upper abdomen with mild wall thickening of the gastric remnant which may be due to underdistention however can be seen with gastritis.
4. Prior cholecystectomy with prominence of the biliary ducts, likely secondary to reservoir effect.
Echo: 01/19/24- 1. Left ventricle: Normal size and function with a visually estimated ejection fraction of 55-60%. No regional wall motion abnormality. Mild concentric LVH.
2. Right ventricle: Normal
3. Atria: Normal
4. Mitral valve: Trace mitral regurgitation
5. Aortic valve: Thickened and calcified aortic leaflets with a mean gradient of 12 mmHg and peak velocity of 2.31 m/s. The estimated aortic valve area is 1.5 cm2 when using an LVOT diameter of 1.8 cm. There is mild aortic
insufficiency.
6. Tricuspid valve: No tricuspid regurgitation
7. When compared to the most recent echocardiogram from 09/19/2022, mild aortic stenosis is now present with a mean aortic valve gradient of 12 mmHg. Otherwise the studies are quite similar
PFT's:
Reports and relevant images were personally reviewed.
Total time spent on this encounter __50__ includes review of history, physical exam, medications, laboratory data, personal review of imaging, extensive review of outpatient records, discussion with care team and respiratory therapy.
Subjective Data
-
Date of Service:
Date of Service: January 28, 2024
Chief Complaint: Pulmonary Follow Up
Subjective:
No new events ON
Has been stable on RA
No new complaints
Objective Data
Data Reviewed
Vital Signs / I&O / Oxygen:
Vital Signs
Temp Pulse Resp BP Pulse Ox
97.9 F 90 18 129/76 92
01/28/24 03:40 01/28/24 03:40 01/28/24 03:40 01/28/24 03:40 01/28/24 03:40
Intake and Output
01/27/24 01/28/24 01/29/24
06:59 06:59 06:59
Intake Total 240 / 240 810 / 810
Output Total 75 / 75 700 / 700
Balance 165 / 165 110 / 110
SaO2 92
Nasal Cannula flow liters per 2
minute
Physical Exam
General: Comfortable and Other (NAD)
HEENT: Normocephalic, Anicteric and Moist Mucous Membranes
Cardiovascular: S1-S2 and Regular Rhythm
Respiratory: Clear and Non-Labored Respirations
GI: Soft, Non Distended and Non Tender
Neurology: Awake, Alert, Oriented, AO x 3 and No Motor Deficits
Skin: Warm, Dry and Good Color
Labs/Micro/Reports
Lab Data
01/28/24 05:17
01/28/24 05:17
[2024-01-28] MEDS: LASIX 40 MG IV (08:47)
[2024-01-28] MEDS: VITAMIN D3 (cholecalciferol) 75 MCG PO (08:48)
[2024-01-28] MEDS: LOW STRENGTH ASPIRIN 81 MG PO (08:49)
[2024-01-28] MEDS: HEPARIN 5000 UNITS SC ×2 (08:49→19:46)
[2024-01-28] MEDS: NORVASC 5 MG PO (08:49)
--- NOTE | 2024-01-28 10:12 | W.PN.CARDCBS ---
Addendum entered and electronically signed by Birgit Schmid MD 01/28/24 11:58:
I saw and examined the patient.
The Interior Block Wirer's note was reviewed and I agree with the note.
Comment: I have seen the patient independently examined the patient. Oxygen requirements have improved from 4 L to 2 L currently. She is weak and frail and tells me for 3 weeks she barely can walk to the bathroom at home. She feels neuropathy is
an issue but also weakness in her legs. We have contacted primary service to further assess.Some screening inflammatory/rheumatologic labs also pending. Given that there is no clear etiology of heart failure with preserved ejection fraction picture
could be consistent with amyloid. SPEP with immunofixation has been ordered to exclude abnormality and as an outpatient would proceed with technetium pyrophosphate cardiac amyloid scan to exclude ATTR if SPEP with immunofixation is negative.
Continue diuresis. Continue to follow renal function.
Will hold on right heart catheterization for now given she is frail and weak and would prefer conservative treatment at this time. Continue to reassess
Original Note:
Today's Communication / Plan
-
Check screening amyloid labs
TT to hosp attending re:weakness
Cont diuresis
Impression / Plan
-
PCP: Dr. Dunlap
Cardiology: Dr. DEANGELO Wheeler
Assessment:
Acute hypoxic respiratory insufficiency and generalized weakness
Possible acute HFpEF
Small B/L pleural effusions
KRUNAL
Recent admission for elevated Troponin and possible acute HF 01/16/24 until 01/20/24
Elevated troponin 0.884 on admission and trending down thereafter
Nonobstructive CAD by cath 01/19/24
Hypothyroidism with abnormal TSH/normal free T4
Hypertension
History of right upper extremity DVT secondary to PICC line 2020
Mild aortic stenosis, mean gradient 12 mmHg and NEIDA 1.5 cm sq
History of gastric cancer status postgastrectomy
h/o CVA
Echo 09/19/22: EF 70 to 75% with mild MR, mild aortic stenosis and mild aortic regurgitation, mean gradient 11.
Echo 01/19/24: EF 55 to 60%, mild concentric LVH, trace MR, mild with mean gradient of 12 mmHg, NEIDA 1.5 cm sq, mild AI
Plan:
-Patient with ongoing generalized weakness and her son reports that he has been carrying her to the bathroom for the last 3 weeks. TT to hospitalist attending to consider neurology or physiatry consults. In the meantime I have ordered JONES, RF, ESR
and CRP.
-Recorded bed scale weight is up 2 lbs overnight despite Lasix 40 mg IV daily. Cre is stable at 1.4. Suspect bed scale weight is not correct, but standing scale weight might be too difficult give weakness.
-Patient had just been started on Lasix 20 mg PO daily prior to this admission.
-EF was 55-60% with mild conc LVH last admission Will check SIFE and UIFE as part of the amyloid diagnostic algorithm
-Update patient's daughter bedside 01/27/24 and then updated patient's son bedside 01/28/24 about plans for work-up of weakness and also plans for diuresis. Outlined potential need for RHC pending diuresis.
-Troponin was 0.884 on admission and trended down thereafter. Will manage as a nonischemic myocardial injury Troponin elevation due to nonobstructive CAD by cath last admission. ECG without acute ischemic change.
-Right radial access site from [facility] last week examined and there is a +2 radial pulse and ecchymosis is resolving. Right groin without hematoma or ecchymosis.
-Cont aspirin 81 mg daily
HPI: Patient came to [facility] last night with increased SOB and was admitted with possible acute HF. Patient was just admitted to 01/16/24 until 01/20/24 with SOB x1 month. Troponin was up to 0.579 that admission and echo showed a preserved EF without
WMA. Patient had [facility] that admission that showed nonobstructive CAD and patient was managed as a nonischemic myocardial injury Troponin elevation. Patient had B/L pleural effusions on CT chest that was negative for PE. Patient was given Lasix 40 mg
IV and developed KRUNAL last admission and it was stopped. Patient was sent home on Lasix 20 mg PO dialy, but her family reports that she began to fail almost as soon as she got home with increased fatigue and SOB. Patient came back to [facility] last night
and CXR showed ongoing small B/L pleural effusions. Her pro-BNP was 933 last admission and is 1990 now. If recorded weights are correct then patient weighs less now than last admission. Cre has been 1.4 this admission.
Progress Note - Manager Spring
Subjective
Date of Service: January 28, 2024
Feels more alert, but still weak
Objective
Labs:
01/28/24 05:17
01/28/24 05:17
Labs
Hgb 11.3 g/dL (12.0-16.0) L 01/28/24 05:17
Hct 31.9 % (37.0-47.0) L 01/28/24 05:17
Plt Count 287 10^3/uL (130-400) 01/28/24 05:17
Sodium 140 mmol/L (135-145) 01/28/24 05:17
Potassium 3.5 mmol/L (3.5-5.1) 01/28/24 05:17
BUN 41 mg/dl (7-17) H 01/28/24 05:17
Creatinine 1.4 mg/dL (0.6-1.0) H 01/28/24 05:17
Glucose 109 mg/dl (70-99) H 01/28/24 05:17
Troponins
01/26/24 01/26/24 01/27/24
20:54 23:53 05:20
Troponin I 0.884 H* 0.702 H* 0.666 H*
Vital Signs and I&O:
Vital Signs
Temp Pulse Resp BP Pulse Ox
97.4 F 92 16 130/79 92
01/28/24 07:00 01/28/24 07:00 01/28/24 07:00 01/28/24 07:00 01/28/24 07:00
Vital Signs
Temp Pulse Resp BP Pulse Ox
97.4 F 92 16 130/79 92
01/28/24 07:00 01/28/24 07:00 01/28/24 07:00 01/28/24 07:00 01/28/24 07:00
Intake & Output
01/26/24 01/27/24 01/28/24 01/29/24
06:59 06:59 06:59 06:59
Intake Total 240 / 240 810 / 810
Output Total 75 / 75 700 / 700
Balance 165 / 165 110 / 110
Physical Exam
Physical Exam
GEN: NAD. AAO x3
HEENT: EOMI, MMM
LUNGS: Wearing oxygen at 2 L NC. No audible wheeze
CV: SR on tele
ABD: ND
EXT: No edema B/L
NEURO: Gross non-focal
SKIN: No rash.
[2024-01-28 10:48] LABS: Erythrocyte Sed Rate 83 mm/hour (0-20)
--- NOTE | 2024-01-28 14:44 | CON.MD ---
Consultation - Medical
-
patient seen chart reviewed. patient is a 78 year old woman admitted twice this month to for sob fatigue lethargy. son present at bedside cardiac workup is proceeding. the question was raised as to whether patient depressed hence this consult.
the patient denies that she is depressed. she says her constellation of sx including fatigue lethargy and even extending to the strength of her voice began this december and to date no definitive dx has been made. son tells me 'fluid ' on her lungs
for which a cause is being sought. the patient does have hx hypothyroid and synthroid recently increased when tsh noted to be elevated. the patient wants to sleep all the time. appetite is fair. she has no energy. she can enjoy aspects of her
life when she feels well. she loves being w her grandkids. she enjoys word games, tv etc. there is nothing to suggest psychosis she is not suicidal.
past psych hx none .patient reports she was in her normal state of good humor october and november before sx described above began
medical hx see above re reason for admit patient w hx gastric ca in 2019 admits this was very difficult time for her. she suffered a cva when pic line was placed this was immediately rx by stroke team w resolution of her sx which included
impaired speech. patient w hx osteoporosis thyroid gerd ibs hld dvt htn gallstones cr 1.4 bun 41 hgb 11.3
fh denied
substance abuse none
social resides on her own. 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
mse alert ox3 soft weak voice which she says is recent and coincident w c/o sob thought process and speech goal oriented no psychosis mood is neutral affect ok no si no psychosis aver intell insight judgment ok
dx adjustment d.o
plan i do not feel at this point we can attribute patient's sx to depression. she was NOT depressed in october or november and there is fluid in her lungs to suggest there is some respiratory or cardiac illness or other affliction that needs to be ruled
out. also the increase in synthroid may need more time to work if thyroid is the cause. would check b12 folate vit d but at this point would not rx with antidepressants. will check in w her tomorrow
[2024-01-28 15:00] VITALS: BP 112/67
--- NOTE | 2024-01-28 16:15 | W.PN.HOSP.TC ---
Today's Communication/Plan
-
IV Lasix.
Assessment / Plan
Assessment / Plan
Physical exam:
General: Acute on chronically ill
HEENT: Normocephalic, Atraumatic and Moist Mucous Membranes
Respiratory: Decreased breath sounds bilateral; Negative Wheezes, Rales or Rhonchi
Cardiac: Regular Rhythm and S1/S2, systolic murmur
GI: Soft, Nontender and Nondistended
Musculoskeletal: No Clubbing, No Cyanosis and presence B/L Edema
Neuro: Awake, Alert and Oriented
Psych: Calm
A/P:
Acute hypoxic respiratory insufficiency likely related to acute diastolic congestive heart failure and bilateral pleural effusions:
CTA negative for PE
Doubt infectious process
Bilateral pleural effusions noted
Continue diuretics
Pulmonary consult appreciated. Pulmonary does not think this is pneumonia.
Updated son, Troy over the phone today 01/27.
Acute diastolic congestive heart failure:
IV diuretics, Lasix 40 mg IV daily
BNP upon admission 1989
Monitor strict I/O
Monitor daily weight
Monitor renal function and electrolytes
Reviewed latest echocardiogram on our system
Continue guideline-directed medical therapy for heart failure (GDMT)
Fluid restriction
Salt restriction
Heart failure education
Follow up clinical response
Cardiology consult appreciated
Generalized weakness more pronounced in the lower extremities:
I do not think this is a neurological process nevertheless we will request neurology consult for further advice and evaluation
Obtained a CT of the head and it is unremarkable for acute findings except for meningioma which it is not responsible for her symptoms.
Check B12
TSH down to 6.4 and I do not think contributes to her symptoms either but repeat in a.m. and can increase doses of thyroid replacement depending on levels tomorrow.
Depression versus adjustment disorder:
I would concur with cardiology and pulmonology that a psychiatry consultation would be beneficial I will defer to psych if medications required
Psychiatry consulted-Juancarlos texted psych today.
Elevated troponin:
Nonischemic myocardial injury
Follow-up.
Nonobstructive CAD:
Continue aspirin beta-blockers
KRUNAL on CKD versus CKD with new levels of renal function:
Likely cardiorenal component
Avoid nephrotoxic
Monitor renal function
Hypothyroidism:
Continue thyroid replacement but will check tomorrow to see if needs adjustment
Gastric cancer:
Status post chemo, radiation, partial gastrectomy.
DVT prophylaxis-heparin SQ
CODE STATUS-full code
Total time spent on today's encounter was 52 minutes which included time spent in counseling the patient/family regarding diagnosis and treatment plan as listed above, goals of care, and symptom management. Case was discussed with nursing staff,
specialists, and care coordinators/case management. All labs and imaging personally reviewed by me. Remainder the time spent in detailed review of previous records, lab data, imaging, and other medical provider documentation.
Anticipated Discharge: > 48 hours
Subjective/Interval History
-
Date of Service: January 28, 2024
Patient less short of breath. Still oxygen requirement but overall less requirements today. Generalized weakness still present and more pronounced on her lower extremities. Afebrile
Objective Data
-
Labs:
Laboratory Results
01/28/24
05:17
WBC 12.4 H
Hgb 11.3 L
Hct 31.9 L
Plt Count 287
Sodium 140
Potassium 3.5
Chloride 105
Carbon Dioxide 22
BUN 41 H
Creatinine 1.4 H
Glucose 109 H
Calcium 8.4
Total Bilirubin 0.6
AST 25
ALT 10
Alkaline Phosphatase 72
Vital Signs:
Vital Signs
Temp Pulse Resp BP Pulse Ox
97.4 F 92 16 130/79 92
01/28/24 07:00 01/28/24 07:00 01/28/24 07:00 01/28/24 07:00 01/28/24 07:00
I&O
01/27/24 01/28/24 01/29/24
06:59 06:59 06:59
Intake Total 240 / 240 810 / 810
Output Total 75 / 75 700 / 700
Balance 165 / 165 110 / 110
--- NOTE | 2024-01-28 16:17 | CM ---
Spoke with pt and son Troy at bedside.
Reviewed PT OT evlana. PT said Rehab.
PAC data list given to Troy . Instructed son to call CM with SNF picks.
PLAN To SNf after located
[2024-01-28 20:08] VITALS: BP 124/69
[2024-01-28 23:37] VITALS: BP 121/74
[2024-01-29] VITALS (7 sets, daily range): BP systolic 99–122; BP diastolic 63–81; O2SAT 94; BMI 23.8; BMI 24.3
[2024-01-29] MEDS: SYNTHROID 137 MCG PO (05:02)
[2024-01-29 07:16] LABS: Blood Urea Nitrogen 47 mg/dl (7-17); Calcium 8.7 mg/dl (8.4-10.2); Carbon Dioxide 20 mmol/L (22-30); Chloride 104 mmol/L (98-107); Estimated Creatinine Clearance 24 ml/min; Glucose 111 mg/dl (70-99); Potassium 3.8 mmol/L (3.5-5.1); Sodium 140 mmol/L (135-145); eGFR 35.23
[2024-01-29 07:27] LABS: Vitamin D, 25-OH*** 45.6 ng/mL (30-80)
[2024-01-29 07:41] LABS: TSH 3.63 uIU/ml (0.47-4.68)
[2024-01-29 07:42] LABS: % Basophils 0.3 % (0-2); % Eosinophils 0.2 % (0-6); % Immature Granulocytes 0.7 % (0-0.5); % Lymphocytes 5.2 % (20.5-51.1); % Monocytes 7.2 % (1.7-9.3); % Neutrophils 86.4 % (42.2-75.2); Absolute Immature Granulocytes 0.1 10^3/uL (0-0.05); Absolute Lymphocytes 0.7 10^3/uL (1.2-3.4); Absolute Neutrophils 12.2 10^3/uL (1.4-6.5); Hemoglobin 12.5 g/dL (12.0-16.0); Mean Corp Hgb Conc. 35.7 g/dL (33.0-37.0); Mean Corpuscular Hgb 30.6 pg (27.0-31.0); Mean Corpuscular Volume 85.8 fL (81.0-99.0); Mean Platelet Volume 9.7 fL (7.4-10.4); Nucleated Red Blood Cells % 0 %; Platelet Count 351 10^3/uL (130-400); Red Blood Cell Count 4.08 10^6/uL (4.20-5.40); Red Cell Dist. Width 13.4 % (11.5-14.5); White Blood Cell Count 14.1 10^3/uL (4.8-10.8)
[2024-01-29] MEDS: NORVASC 5 MG PO (08:14)
[2024-01-29] MEDS: VITAMIN D3 (cholecalciferol) 75 MCG PO (08:14)
[2024-01-29] MEDS: LOW STRENGTH ASPIRIN 81 MG PO (08:15)
[2024-01-29] MEDS: HEPARIN 5000 UNITS SC ×2 (08:15→20:21)
[2024-01-29] MEDS: LASIX 40 MG IV (08:15)
[2024-01-29 08:17] LABS: Folate 7.2 ng/ml (2.76-20); Vitamin B12 204 pg/ml (239-931)
--- NOTE | 2024-01-29 08:43 | W.PN.CARDCBS ---
Addendum entered and electronically signed by Birgit Schmid MD 01/29/24 10:49:
I saw and examined the patient.
The Lean Consultant's note was reviewed and I agree with the note.
Comment: She continues with weakness. Family at the bedside. Inflammatory markers abnormal. Discussed with primary service through secure texting. Neurology consult has been placed by primary service. Discussed with family.
-From a cardiac point of view she has heart failure with preserved ejection fraction. Muscle weakness may be contributing in addition to her shortness of breath. At this time we will change IV Lasix to oral and continue to follow volume status.
-Continue to monitor volume status now that she has been changed to oral diuretic.
-Renal function stable.
-As an outpatient consider PYP study to exclude ATTR amyloid. Some features that may be consistent with cardiac amyloid by history. SPEP with immunofixation is pending but this will be further assessed as an outpatient.
Original Note:
Today's Communication / Plan
-
Switch to lasix 40mg PO daily
Continue ongoing workup for weakness, neuro to evaluate
Impression / Plan
-
PCP: Dr. Dunlap
Cardiology: Dr. DEANGELO Wheeler
Assessment:
Acute hypoxic respiratory insufficiency and generalized weakness
Possible acute HFpEF
Small B/L pleural effusions
KRUNAL
Recent admission for elevated Troponin and possible acute HF 01/16/24 until 01/20/24
Elevated troponin 0.884 on admission and trending down thereafter
Nonobstructive CAD by cath 01/19/24
Hypothyroidism with abnormal TSH/normal free T4
Hypertension
History of right upper extremity DVT secondary to PICC line 2020
Mild aortic stenosis, mean gradient 12 mmHg and NEIDA 1.5 cm sq
History of gastric cancer status postgastrectomy
h/o CVA
Echo 09/19/22: EF 70 to 75% with mild MR, mild aortic stenosis and mild aortic regurgitation, mean gradient 11.
Echo 01/19/24: EF 55 to 60%, mild concentric LVH, trace MR, mild with mean gradient of 12 mmHg, NEIDA 1.5 cm sq, mild AI
Plan:
-Presented with SOB and admitted with acute heart failure.
-Diuresing with IV lasix 40mg daily. Creat up to 1.5. Weight this AM down to 128 lbs via bed scale. Will transition to PO lasix 40mg daily.
-EF was 55-60% with mild conc LVH last admission. SIFE and UIFE checked as part of the amyloid diagnostic algorithm
-As OP, pending results of SIFE and UIFE, would consider technetium pyrophosphate cardiac amyloid scan to exclude ATTR.
-Continue workup of generalized weakness. JONES, RF pending. ESR and CRP elevated. Neurology to evaluate patient today.
-Troponin was 0.884 on admission and trended down thereafter. Will manage as a nonischemic myocardial injury due to nonobstructive CAD by cath last admission.
-Cont aspirin 81 mg daily.
-Follow up arranged.
HPI: Patient came to [facility] last night with increased SOB and was admitted with possible acute HF. Patient was just admitted to 01/16/24 until 01/20/24 with SOB x1 month. Troponin was up to 0.579 that admission and echo showed a preserved EF without
WMA. Patient had C that admission that showed nonobstructive CAD and patient was managed as a nonischemic myocardial injury Troponin elevation. Patient had B/L pleural effusions on CT chest that was negative for PE. Patient was given Lasix 40 mg
IV and developed KRUNAL last admission and it was stopped. Patient was sent home on Lasix 20 mg PO dialy, but her family reports that she began to fail almost as soon as she got home with increased fatigue and SOB. Patient came back to [facility] last night
and CXR showed ongoing small B/L pleural effusions. Her pro-BNP was 933 last admission and is 1989 now. If recorded weights are correct then patient weighs less now than last admission. Cre has been 1.4 this admission.
Progress Note - Donor Services Specialist
Subjective
Date of Service: January 29, 2024
Continues with weakness.
Objective
Labs:
01/29/24 05:03
01/29/24 05:03
Labs
Hgb 12.5 g/dL (12.0-16.0) 01/29/24 05:03
Hct 35.0 % (37.0-47.0) L 01/29/24 05:03
Plt Count 351 10^3/uL (130-400) D 01/29/24 05:03
Sodium 140 mmol/L (135-145) 01/29/24 05:03
Potassium 3.8 mmol/L (3.5-5.1) 01/29/24 05:03
BUN 47 mg/dl (7-17) H 01/29/24 05:03
Creatinine 1.5 mg/dL (0.6-1.0) H 01/29/24 05:03
Glucose 111 mg/dl (70-99) H 01/29/24 05:03
Troponins
01/26/24 01/26/24 01/27/24
20:54 23:53 05:20
Troponin I 0.884 H* 0.702 H* 0.666 H*
Vital Signs and I&O:
Vital Signs
Temp Pulse Resp BP Pulse Ox
97.8 F 92 20 114/77 95
01/29/24 07:55 01/29/24 07:55 01/29/24 07:55 01/29/24 07:55 01/29/24 07:55
Vital Signs
Temp Pulse Resp BP Pulse Ox
97.8 F 92 20 114/77 95
01/29/24 07:55 01/29/24 07:55 01/29/24 07:55 01/29/24 07:55 01/29/24 07:55
Intake & Output
01/27/24 01/28/24 01/29/24 01/30/24
06:59 06:59 06:59 06:59
Intake Total 240 / 240 810 / 810 1320 / 1320
Output Total 75 / 75 700 / 700 700 / 700
Balance 165 / 165 110 / 110 620 / 620
Physical Exam
Physical Exam
GEN: No distress, awake, alert, lying in bed.
HEENT: supple, anicteric, mmm
LUNGS: CTA b/l, no wheezes/rales
CV: Reg, S1/S2, 1/6 syst murmur
EXT: No clubbing, cyanosis, or edema
NEURO: Gross non-focal
SKIN: Warm, dry, no rash
--- NOTE | 2024-01-29 08:45 | W.PN.HOSP.TC ---
Today's Communication/Plan
-
IV Lasix. MRI of the brain. EMG today.
Assessment / Plan
Assessment / Plan
Physical exam:
General: Acute on chronically ill
HEENT: Normocephalic, Atraumatic and Moist Mucous Membranes
Respiratory: Decreased breath sounds bilateral; Negative Wheezes, Rales or Rhonchi
Cardiac: Regular Rhythm and S1/S2, systolic murmur
GI: Soft, Nontender and Nondistended
Musculoskeletal: No Clubbing, No Cyanosis and presence B/L Edema
Neuro: Awake, Alert and Oriented, generalized weakness present with more pronounced on the left lower extremity. Sensory deficit glove stock pattern.
Psych: Anxious
A/P:
Generalized weakness more pronounced in the lower extremities L>R:
Neurology consult appreciated
Plan for MRI of the brain and EMG
Replace B12 level
CT of the head reviewed
TSH down to 3.63 so no need to do anything different.
Discussed with psychiatry today
Discussed with daughter at bedside today on 01/28
B12 deficiency:
Start B12 replacement
Acute diastolic congestive heart failure:
IV diuretics, Lasix 40 mg IV daily and will switch to oral tomorrow. Discussed with cardiology today.
BNP upon admission 1989
Monitor strict I/O
Monitor daily weight
Monitor renal function and electrolytes
Reviewed latest echocardiogram on our system
Continue guideline-directed medical therapy for heart failure (GDMT)
Fluid restriction
Salt restriction
Heart failure education
Follow up clinical response
Cardiology consult appreciated
Elevated inflammatory markers:
Nonspecific but appears to be noninfectious
ID and neurology consults
Rheumatology evaluation as outpatient
Acute hypoxic respiratory insufficiency likely related to acute diastolic congestive heart failure and bilateral pleural effusions:
CTA negative for PE
Doubt infectious process
Bilateral pleural effusions noted
Continue diuretics
Pulmonary consult appreciated. Pulmonary does not think this is pneumonia.
Updated son, Troy over the phone on 01/27.
Leukocytosis:
Reactive versus infectious
Remains afebrile
Follow-up trend
Depression versus adjustment disorder:
I would concur with cardiology and pulmonology that a psychiatry consultation would be beneficial I will defer to psych if medications required
Psychiatry consulted-[place] texted psych today.
Elevated troponin:
Nonischemic myocardial injury
Follow-up.
Nonobstructive CAD:
Continue aspirin beta-blockers
KRUNAL on CKD versus CKD with new levels of renal function:
Likely cardiorenal component
Avoid nephrotoxic
Monitor renal function
Hypothyroidism:
Continue thyroid replacement
TSH down to 3.63 so no need to do anything different.
Gastric cancer:
Status post chemo, radiation, partial gastrectomy.
DVT prophylaxis-heparin SQ
CODE STATUS-full code
Total time spent on today's encounter was 52 minutes which included time spent in counseling the patient/family regarding diagnosis and treatment plan as listed above, goals of care, and symptom management. Case was discussed with nursing staff,
specialists, and care coordinators/case management. All labs and imaging personally reviewed by me. Remainder the time spent in detailed review of previous records, lab data, imaging, and other medical provider documentation.
Anticipated Discharge: 24 - 48 hours
Subjective/Interval History
-
Date of Service: January 29, 2024
Patient with generalized weakness and worsening on the left lower extremity. No chest pain or shortness of breath. Afebrile
Objective Data
-
Labs:
Laboratory Results
01/29/24
05:03
WBC 14.1 H
Hgb 12.5
Hct 35.0 L
Plt Count 351 D
Sodium 140
Potassium 3.8
Chloride 104
Carbon Dioxide 20 L
BUN 47 H
Creatinine 1.5 H
Glucose 111 H
Calcium 8.7
Vital Signs:
Vital Signs
Temp Pulse Resp BP Pulse Ox
97.8 F 92 20 114/77 95
01/29/24 07:55 01/29/24 07:55 01/29/24 07:55 01/29/24 07:55 01/29/24 07:55
I&O
01/28/24 01/29/24 01/30/24
06:59 06:59 06:59
Intake Total 810 / 810 1320 / 1320
Output Total 700 / 700 700 / 700
Balance 110 / 110 620 / 620
--- NOTE | 2024-01-29 09:16 | CON.NEURO4 ---
Addendum entered and electronically signed by Danielle Beth DO 01/29/24 14:49:
I have personally examined the patient. I agree with the VP STRATEGY's Note.
My addenda:
78 year-old female with a complex PMH with progressively worsening fatigue and LLE>RLE as well as proximal BUE weakness. The clinical picture is clouded by her baseline h/o peripheral neuropathy that her daughter states has been attributed to
chemotherapy use as well as some component of giveaway weakness with testing of proximal BUE muscle strength. She also has R facial weakness which her daughter states is her baseline/she has had all her life.
On exam:
Motor strengths are at least 4/5 in proximal UEs with at least some component of giveaway weakness/diminished effort, 4/5 right lower, and 2+/5 left lower extremities on medical research [place] scale. Dorsi/plantar flexion in the left foot is 2/5,
5/5 right foot. . No involuntary movement noted. Deep tendon reflexes are 2+ bilateral upper and lower extremities and Babinski is absent bilaterally. Sensation testing inconsistent. She is very hypophonic but had no clear dysarthria or aphasia. Has
R facial weakness at baseline which is unchanged. Flat affect--deferred to dtr to provide history.
There was no extinction noted on double simultaneous stimulation.
Differential is broad ; patient has several confounding variables and details of her true baseline are unclear.
B12 deficiency could be contributing. Inflammatory markers are also elevated.
Check MRI brain w/wo contrast to evaluate for stroke/R hemispheric structural abnormality causing symptoms given more profound LLE weakness (if RLE weakness is chronic and BUE weakness is giveaway). continue ASA 81mg daily. Check EMG/NCS to
evaluate for myopathy/myositis/AIDP. Dr. Warner confirmed he can do the EMG later today. Check NIF/VC.
Original Note:
Documented by User: Thea Pinto NP 01/29/24 12:30
Consultation - Neurology 4
-
CONSULTING PHYSICIAN: Danielle Beht DO
REFERRING PHYSICIAN: Hospitalists/Dr. Fuentes
DICTATED BY: ANTHONY Hitchcock
DATE/TIME OF REQUEST: 01/28/24
DATE/TIME OF CONSULTATION: 01/29/24
Reason for Consultation: BLE weakness
History of Present Illness:
This is a 78-year-old left-handed female who has presented to the hospital with report of . Patient was recently admitted at from 01/16/24-01/20/24 for shortness of breath. Troponin was elevated, d-dimer was elevated with negative CT chest, EF
55-60%, and cardiac cath demonstrated nonobstructive CAD. TSH was elevated and Synthroid was increased. Patient was discharge home, then returned to the ER on 01/26/24 with report of ongoing shortness of breath, progressive weakness, poor appetite,
and fatigue. CXR on admission demonstrates left greater than right b/l pleural effusions. WBC 14.7, ESR 83, GFR 38, Trop 0.702, CRP 44, B12 204, TSH 6.49, T4 2.49, Pro-BNP 1,990.
Per patient and family at bedside, at baseline she ambulates independently with no assistive devices. Per physical therapy, upon hospital discharge on 01/20/24 she was able to ambulate 150ft without an assistive device and only with supervision.
Family reports that she has needed to use a rolling walker at home for ambulation. Upon PT evaluation two days ago on 01/27/24 patient was able to ambulate 15 feet with a rolling walker and required minimal to moderate assistance. She had significant
dyspnea on exertion. Today (01/29/24), patient's weakness has progressed to the point that she needs assist of 2 just to sit on the side of the bed. Her daughter notes that she appears to be leaning to the right side frequently. Patient reports
feeling unsteady/off balance with position change/ambulation, she denies dizziness/lightheadedness. She also notes difficulty using her cell phone with her left hand like she typically does. She denies any headache, jaw pain, vision changes,
diplopia, swallowing difficulty, focal numbness, nausea, chest pain, palpitations, and shortness of breath. She notes that her speech is much softer than baseline in the past 4 days. She also notes chronic neuropathy in bilateral hands and feet. She
denies any recent fevers, muscle pain, or back/neck pain. She denies any changes in bowel/bladder control.
She reports that in 2019 she was hospitalized at [facility] and ended up having a DVT in her RUE due to a PICC line occlusion. There were concerns for left-sided weakness at that time and she had an MRI brain. Her daughter reports that they
were told there was a small old scar on the scan which appeared to be an old stroke. She was on anticoagulation for a few months following that event but then did not continue on any antiplatelet until she was started on aspirin 81mg during last
week's admission for cardiac purposes.
She also endorses a several year history of intermittent thoracic spine pain associated with standing upright for long periods. She had a thoracic spine xray in 2019 that demonstrated degenerative changes. She denies any recent back discomfort.
Past Medical History: Old ischemic stroke?, Gastric cancer s/p rxn/chemo/radiation, HTN, HFpEF, nonocclusive CAD, aortic stenosis, hypothyroidism, cholelithiasis, DVT RUE due to PICC line 2019, osteoporosis
Surgical History: Cardiac catheterization 01/2024, Cholecystectomy, toe amputation, partial gastrectomy, right breast calcification removed, tubal ligation
Family History: Maternal grandfather- CVA.
Social History: Denies illicit drug use, smoking, alcohol usage.
Allergies: No known allergies.
Home Medications: See below.
Review of Symptoms:
Patient denies any fever, headache, chest pain, shortness of breath, GI or symptoms.
�Per the HPI.�All systems are reviewed negative except above.
Physical Exam:
The patient is afebrile, abdomen is nondistended, breathing is unlabored, skin is warm and dry, no edema.
NIH Stroke Scale:
I performed the NIH stroke scale on the patient on 01/29/24 at 1000. The patient scored 5 points on the NIH stroke scale assessment, which were assigned as follows: See below.
Neurologic Examination:
The patient is awake, alert and oriented x 3. Severe difficulty with calculations and backwards spelling. She is able to follow commands and answer questions appropriately. There is no aphasia. Speech is hypophonic, mildly dysarthric.. On cranial
nerve assessment, pupils are 3 mm bilateral, round and reactive to light and accommodation. Visual sanchez are full. Extraocular movements are intact. Facial sensations are intact and bilaterally symmetrical. There is mild lower left facial drooping.
Hearing is intact bilaterally to normal conversation volume. Tongue palate and uvula are midline. Sternocleidomastoid strengths are 4/5 bilaterally. Motor strengths are 5/5 right upper, 5-/5 left upper, 4/5 right lower, and 2+/5 left lower
extremities on medical research [place] scale. Dorsi/plantar flexion in the left foot is 2/5, 5/5 right foot. There is drift in BLE. No involuntary movement noted. Deep tendon reflexes are 2+ bilateral upper and lower extremities and Babinski is
absent bilaterally. Sensations of touch and temperature are intact and bilaterally symmetrical. Sensation of vibration is absent in bilateral toes only. There was no extinction noted on double simultaneous stimulation. Coordination is intact by
finger to nose bilaterally.
Lab Results: See below.
Neuro Imaging:
1. CT Head 01/29/24: There are no acute intracranial abnormalities. 2.5 cm calcified right frontal meningioma with moderate impingement upon the underlying right frontal gyri. There is moderate diffuse cortical atrophy with moderate nonspecific white
matter changes as described above.
Differentials for the patient's presentation include:
1. Concern for subacute stroke given left-sided weakness.
2. Elevated inflammatory markers. Absence of muscle discomfort less supportive of a myopathy.
3. Structural spine abnormality possible but less likely given absence of back/neck pain
4. Vitamin B12 deficiency.
Patient has the following risk factors for their symptoms: Hx of possible old stroke, HTN, HLD, metabolic disturbances
IV Tenecteplase/IAT candidacy: Not a candidate due to outside of time window.
Recommendations:
-Continue aspirin 81mg daily.
-Goal normotension.
-MRI brain noncontrast pending. Further imaging/testing per Dr. Beth recommendations.
-NIHSS and neurological checks per unit guidelines.
-Provide patient with a stroke education packet.
-B12 level is low at 204, continue cyanocobalamin 1000mcg PO daily.
-PT/OT/ST evaluations.
-DVT prophylaxis.
-Will follow pending results.
Discussed patient care with: Dr. Beth, the patient, patient's daughter
Vital Signs and Labs
-
Vital Signs and Labs:
Vital Signs
Temp Pulse Resp BP Pulse Ox
97.8 F 92 20 114/77 95
01/29/24 07:55 01/29/24 07:55 01/29/24 07:55 01/29/24 07:55 01/29/24 07:55
Lab Results
01/29/24 05:03
01/29/24 05:03
Sodium 140 mmol/L (135-145) 01/29/24 05:03
Potassium 3.8 mmol/L (3.5-5.1) 01/29/24 05:03
BUN 47 mg/dl (7-17) H 01/29/24 05:03
Glucose 111 mg/dl (70-99) H 01/29/24 05:03
Calcium 8.7 mg/dl (8.4-10.2) 01/29/24 05:03
Tys-E-Megkwmovmje Pept 1990 pg/ml 01/26/24 20:54
Vitamin B12 204 pg/ml (239-931) L 01/29/24 05:03
Medications
-
Active Medications
Generic Name Dose Route Start Last Admin
Trade Name Freq PRN Reason Stop Dose Admin
Acetaminophen 650 mg 01/27/24 00:56
Acetaminophen 325 Mg Tablet PO 02/24/24 00:55
Q4HPRN PRN
mild pain/STOKES/temp> 100.4F
Amlodipine Besylate 5 mg 01/27/24 08:00 01/29/24 08:14
Amlodipine 5 Mg Tablet PO 02/24/24 07:59 5 mg
DAILY ROSE Administration
Aspirin 81 mg 01/27/24 08:00 01/29/24 08:15
Aspirin 81 Mg Chewable Tablet PO 02/24/24 07:59 81 mg
DAILY ROSE Administration
Cholecalciferol 75 mcg 01/27/24 08:00 01/29/24 08:14
Cholecalciferol (Vitamin D3) 25 Mcg Tablet (1,000 Units) PO 02/24/24 07:59 75 mcg
DAILY ROSE Administration
Cyanocobalamin 1,000 mcg 01/30/24 08:00
Cyanocobalamin 1,000 Mcg Tablet PO 02/27/24 07:59
DAILY ROSE
Furosemide 40 mg 01/27/24 12:00 01/29/24 08:15
Furosemide 40 Mg (10 Mg/Ml) 4 Ml Vial IV 02/24/24 11:59 40 mg
DAILY ROSE Administration
Heparin Sodium 5,000 units 01/27/24 08:00 01/29/24 08:15
Heparin 5,000 Units/Ml 1 Ml Vial SC 02/24/24 07:59 5,000 units
Q12 ROSE Administration
Levothyroxine Sodium 137 mcg 01/28/24 06:00 01/29/24 05:02
Levothyroxine 137 Mcg Tablet PO 02/25/24 05:59 137 mcg
DAILY@0600 ROSE Administration
Sodium Chloride 0 flush 01/27/24 03:00
Sodium Chloride 0.9% (Flush) Syringe IV 02/24/24 02:59
PER PROTOCOL ROSE
Home Medications
�Medication �Instructions �Recorded
amlodipine 5 mg tablet 5 mg PO DAILY Blood Pressure 01/16/24
cholecalciferol (vitamin D3) 25 75 mcg PO DAILY Supplement 01/16/24
mcg (1,000 unit) tablet (Vitamin
D3)
denosumab 60 mg/mL subcutaneous 60 mg SC [id number] bone loss 01/16/24
syringe (Prolia)
losartan 100 mg tablet 100 mg PO DAILY Blood Pressure 01/16/24
aspirin 81 mg chewable tablet 81 mg PO DAILY 30 days #30 tabs 01/20/24
furosemide 20 mg tablet 20 mg PO DAILY 30 days #30 tabs 01/20/24
levothyroxine 137 mcg tablet 137 mcg PO DAILY #30 tabs 01/20/24
(Synthroid)
acetaminophen 500 mg tablet 500 mg PO Q6HPRN PRN mild pain 01/26/24
(Tylenol Extra Strength)
NIH Stroke Score
Subsequent NIH Scale
Date of Subsequent NIH Scale: 01/29/24
Time of Subsequent NIH Scale: 10:00
NIH Stroke Score
Level of Consciousness: 0 - Alert
LOC Questions: 0-Answers both correctly
LOC Commands: 0-Performs both correctly
Best Horizontal Gaze: 0-Normal
Visual Sanchez: 0=Normal, no visual loss
Facial Palsy: 1=Minor paralysis
Motor - Right Arm: 0=No drift 10 seconds
Motor - Left Arm: 0=No drift 10 seconds
Motor - Right Le-Drift < 5 seconds
Motor - Left Le-Partial vs. gravity
Limb Ataxia: 0-Absent
Sensation: 0-Normal
Best Language: 0-No aphasia
Dysarthria: 1-Mild slurring
Extinction and Inattention: 0-No abnormality
Total Score:: 5
Modified Crosby (mRS) Score
Modified Crosby Scale (mRS): Moderately severe disability. Unable to attend to bodily needs/walk.
Score: 4

Documented by User: Danielle Beth DO 01/29/24 14:27
NIH Stroke Score
NIH Stroke Score
Total Score:: 5
Modified Suzette (mRS) Score
Score: 4
[2024-01-29] MEDS: CYANOCOBALAMIN 1000 MCG IM (09:50)
--- NOTE | 2024-01-29 13:19 | CON.ID ---
Consultation
-
Date/Time Consultation Requested: 01/29/2024 1011
Date/Time Consultation Performed: 01/29/2024 1315
Requesting Provider: Dr. Fuentes
Performing Provider: Dr. Chisholm
Reason for Consultation: Leukocytosis
Chief Complaint / Past History
History of Present Illness
Cristel Bingham is a 78-year-old female being evaluated at the request of Dr. Fuentes in regards to leukocytosis. History is obtained from chart review, along with patient interview.
The patient presented to [facility] on 01/26/2024 following the development of shortness of breath which had been going on for the past month. She had been into see her PCP and at that time there was reported concern for heart failure. She
presented to the emergency room on 01/15 and was admitted for 4 days, but according to family she had been declining ever since that discharge.
There is no history of fevers or chills. No history of chest pain, abdominal pain, nausea or vomiting.
At admission, she was found to have a leukocytosis which improved next day, but over the past 2 days her white count has persisted. Infectious Diseases asked to comment upon possible further workup.
Past History
Additional Past Medical History:
Gastric cancer (2019; chemo, XRT)
HTN
Hypothyroidism
Cholelithiasis
Additional Past Surgical History:
Cholecystectomy
Partial gastrectomy
Tubal ligation
Toe amputation
Allergy History:
No Known Allergies Allergy (Verified 01/26/24 20:56)
Medications Reviewed: Yes
Current Antibiotics:
None
Social History
Tobacco: Non-Smoker
Alcohol: None
Drug: None
Personal:
Living: With Family
Employment: Retired
Family History
Family History: Not Pertinent
Review of Systems
Review of Systems
General: Change in Appetite (lack of appetite); Negative Fever or Chills
HEENT: Negative Lymphadenopathy, Stiff Neck, Sinus Problems, Headache or Pharyngitis
Cardiovascular: Dyspnea; Negative Chest Pain, Edema or Palpitations
Respiratory: Negative Cough or Hemoptysis
Gasteroenterology: Negative Nausea or Vomiting
Genital / Urological: Negative Dysuria or Hematuria
Endocrine: Weakness (profound) and Fatigue
Musculoskeletal: Negative Joint Pain, Joint Swelling, Arthralgias or Myalgias
Skin / Hair / Nails: Negative Urticaria
Neurological: Negative Headache
Vital Signs
Temp Pulse Resp BP Pulse Ox
97.7 F 105 18 119/81 93
01/29/24 12:03 01/29/24 12:03 01/29/24 12:03 01/29/24 12:03 01/29/24 12:03
Physical Exam
Physical Exam
Constitutional: No Acute Distress, Comfortable and Non-toxic
Head: Normocephalic
Eyes: Pupils Equal, Pupils Round, No Conjunctival Hemorrhage and Sclera Anicteric
Oral: No Thrush and No Ulcers
Cardiovascular: Regular Rate and S1/S2; Negative S3/S4 or Murmur
Pulmonary: Clear; Negative Wheezes, Rales or Rhonchi
Gastrointestinal: Soft, Non Tender, Non Distended and Normal Bowel Sounds
Genito-Urinary: Negative Gama or CVA Tenderness
Extremities: Negative Edema, Cyanosis or Erythema
Musculoskeletal: Negative Joint Swelling or Joint Effusion
Skin: Warm and Dry; Negative Rash or Jaundice
Neurological: Awake and Alert
Psychological: Calm
.
Lab / Diagnostic Study Results
01/29/24 05:03
01/29/24 05:03
Abs Immat Gran (auto) 0.1 10^3/uL (0-0.05) H 01/29/24 05:03
Absolute Neuts (auto) 12.2 10^3/uL (1.4-6.5) H 01/29/24 05:03
Absolute Lymphs (auto) 0.7 10^3/uL (1.2-3.4) L 01/29/24 05:03
Absolute Monos (auto) 1.0 10^3/uL (0.1-0.6) H 01/29/24 05:03
Absolute Basos (auto) 0.0 10^3/uL (0-0.2) 01/29/24 05:03
Immature Gran % 0.7 % (0-0.5) H 01/29/24 05:03
Neutrophils % 86.4 % (42.2-75.2) H 01/29/24 05:03
Lymphocytes % 5.2 % (20.5-51.1) L 01/29/24 05:03
Monocytes % 7.2 % (1.7-9.3) 01/29/24 05:03
Eosinophils % 0.2 % (0-6) 01/29/24 05:03
Basophils % 0.3 % (0-2) 01/29/24 05:03
ESR 83 mm/hour (0-20) H 01/28/24 05:17
C-Reactive Protein 44.60 mg/L (0.0-10.00) H 01/28/24 05:17
Microbiology Results
Imaging:
01/29/24 CT Head : There are no acute intracranial abnormalities. 2.5 cm calcified right frontal meningioma with moderate impingement upon the underlying right frontal gyri. There is moderate diffuse cortical atrophy with moderate nonspecific white
matter changes
01/26/2024 CXR (2 view): Small, left greater than right 5 lateral pleural effusions with adjacent bibasilar opacities. Cardiac and mediastinal contours are mildly enlarged.
01/16/2024 CT chest: 1. No evidence of pulmonary embolism. 2. Small left greater than right lateral pleural effusions with adjacent atelectasis. 3. Postoperative changes in the upper abdomen with mild wall thickening of the gastric remnant which
may be due to underdistention however can be seen with gastritis. 4. Prior cholecystectomy with prominence of the biliary ducts, likely secondary to reservoir effect.
Assessment / Plan
Leukocytosis
Fatigue / weakness
Elevated ESR / CRP
- rheumatologic process?
HTN
Hypothyroidism
Cholelithiasis
Hx Gastric cancer (2019; chemo, XRT)
Recommendations:
At present, little evidence of an infectious process.
Suspect leukocytosis at present it is reactive.
Hold on antibiotics for the present.
Monitor for the development of fevers; if so, check blood cultures x 2.
May need further workup of elevated ESR.
May ultimately need Rheumatology evaluation.
--- NOTE | 2024-01-29 15:42 | W.PN.UPDATE ---
Update Note
Progress Note Update
chart reviewed. did not see patient as she was in the process of emg i did speak to her daughter and with dr crawford. workup continues. i communicated to dr crawford and d that it is my impression that patient's sx have to do with underlying medical
condition as i told mrs torre yesterday. noted neuro consult underway. cat scan head ok. tsh is 6.4 and is being repeated. creatinine 1.5 relatively constant . will stop by to see her again in the am.
--- NOTE | 2024-01-29 15:56 | NS.EMG ---
Electromyogram (EMG) Study
EMG/NCS Summary
EMG/nerve conduction study of both lower limbs and the left upper limb was completed in the patient's hospital room.
Electrodiagnostic Impressions:
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
The nerve conduction study of the left upper limb and the needle EMG of both lower limbs and the left upper limb was normal.
There was no electrodiagnostic evidence of myopathy, cervical nor lumbosacral radiculopathy.
Full dictated report and tabular data to follow.
[2024-01-29 15:57] LABS: Free Kappa Light Chains,Quant 65.48 mg/L (3.30-19.40); Free Lambda Light Chains,Quant 45.29 mg/L (5.71-26.30); Kappa/Lambda Fr Light Ratio 1.45 (0.26-1.65)
[2024-01-29 17:15] LABS: Rheumatoid Agglutinin Less Than 10 IU (<10 IU)
--- NOTE | 2024-01-29 19:30 | CM ---
patient had mri brain,emg/ncs,cont with 2 liters nc o2.spoke with son carolyn who gave cm sn[facility] choices[facility] Plan snf when stable for dc.
[2024-01-30] VITALS (7 sets, daily range): BP systolic 88–115; BP diastolic 56–73; PULSE 101–113; O2SAT 90; BMI 23.3
[2024-01-30] MEDS: SYNTHROID 137 MCG PO (05:51)
--- NOTE | 2024-01-30 06:32 | RESPNOTE ---
Attempted to do NIF/VC 01/29/24 @ approximately 2030. NIF done 3 times with best result noted as -18cm H2O. Called away from pt bedside for emergency call and told by pt to not awake her it she was sleep when I returned. Attempted to follow up with
pt this morning to do the VC but patient refused again. RN notified of results and patient refusal.
--- NOTE | 2024-01-30 08:45 | W.PN.CARDCBS ---
Addendum entered and electronically signed by Talat Rutledge MD 01/30/24 15:46:
I saw and examined the patient.
The Associate Sales's note was reviewed and I agree with the note.
Comment: Briefly, 78-year-old woman past medical history of heart failure preserved ejection fraction and nonobstructive coronary artery disease who presented with weakness, fatigue and dyspnea
Initially there was concern for decompensated heart failure
Appears euvolemic to me on exam. With rising creatinine will plan to decrease Lasix to p.o. 20 mg daily and discharged on this dose.
Explained to patient and daughter at bedside that I am concerned mostly for her weakness and deconditioning. Encouraged out of bed to chair and incentive spirometer.
Ongoing workup of possible metastatic cancer per primary team
Outpatient cardiology follow-up has been arranged
We will sign off, please recall as needed
Original Note:
Today's Communication / Plan
-
Continue PO lasix
Check BMP
Eval of weakness ongoing
Cardiology follow up arranged
Impression / Plan
-
PCP: Dr. Dunlap
Cardiology: Dr. DEANGELO Wheeler
Assessment:
Acute hypoxic respiratory insufficiency and generalized weakness
Possible acute HFpEF
Small B/L pleural effusions
KRUNAL
Recent admission for elevated Troponin and possible acute HF 01/16/24 until 01/20/24
Elevated troponin 0.884 on admission and trending down thereafter
Nonobstructive CAD by cath 01/19/24
Hypothyroidism with abnormal TSH/normal free T4
Hypertension
History of right upper extremity DVT secondary to PICC line 2020
Mild aortic stenosis, mean gradient 12 mmHg and NEIDA 1.5 cm sq
History of gastric cancer status postgastrectomy
h/o CVA
Echo 09/19/22: EF 70 to 75% with mild MR, mild aortic stenosis and mild aortic regurgitation, mean gradient 11.
Echo 01/19/24: EF 55 to 60%, mild concentric LVH, trace MR, mild with mean gradient of 12 mmHg, NEIDA 1.5 cm sq, mild AI
Plan:
-Presented with weakness and SOB, found to be in acute heart failure on admission w/ progressive weakness w/ unclear cause.
-Diuresed with IV lasix 40mg daily. Creat bumped to 1.5 on 01/28 and transitioned to PO lasix 40mg daily.
-Continue PO lasix 40mg daily for now. Weight continues to decline. Will recheck BMP this AM. Order placed.
-EF was 55-60% with mild conc LVH last admission. SIFE and UIFE checked as part of the amyloid diagnostic algorithm
-As OP, pending results of SIFE and UIFE, would consider technetium pyrophosphate cardiac amyloid scan to exclude ATTR.
-Continue workup of generalized weakness. JONES pending. RF normal. ESR and CRP elevated. Neurology following and eval ongoing. Consider rheumatology eval.
-Troponin was 0.884 on admission and trended down thereafter. Will manage as a nonischemic myocardial injury due to nonobstructive CAD by cath last admission.
-Cont aspirin 81 mg daily.
-Follow up arranged.
HPI: Patient came to [facility] last night with increased SOB and was admitted with possible acute HF. Patient was just admitted to 01/16/24 until 01/20/24 with SOB x1 month. Troponin was up to 0.579 that admission and echo showed a preserved EF without
WMA. Patient had C that admission that showed nonobstructive CAD and patient was managed as a nonischemic myocardial injury Troponin elevation. Patient had B/L pleural effusions on CT chest that was negative for PE. Patient was given Lasix 40 mg
IV and developed KRUNAL last admission and it was stopped. Patient was sent home on Lasix 20 mg PO dialy, but her family reports that she began to fail almost as soon as she got home with increased fatigue and SOB. Patient came back to [facility] last night
and CXR showed ongoing small B/L pleural effusions. Her pro-BNP was 933 last admission and is 1989 now. If recorded weights are correct then patient weighs less now than last admission. Cre has been 1.4 this admission.
Progress Note - Negative Cleaner
Subjective
Date of Service: January 30, 2024
Continues w/ weakness which she and family feel is progressively worsening.
Objective
Labs:
01/29/24 05:03
01/29/24 05:03
Labs
Hgb 12.5 g/dL (12.0-16.0) 01/29/24 05:03
Hct 35.0 % (37.0-47.0) L 01/29/24 05:03
Plt Count 351 10^3/uL (130-400) D 01/29/24 05:03
Sodium 140 mmol/L (135-145) 01/29/24 05:03
Potassium 3.8 mmol/L (3.5-5.1) 01/29/24 05:03
BUN 47 mg/dl (7-17) H 01/29/24 05:03
Creatinine 1.5 mg/dL (0.6-1.0) H 01/29/24 05:03
Glucose 111 mg/dl (70-99) H 01/29/24 05:03
Vital Signs and I&O:
Vital Signs
Temp Pulse Resp BP Pulse Ox
97.5 F 87 16 111/71 93
01/30/24 07:55 01/30/24 07:55 01/30/24 07:55 01/30/24 07:55 01/30/24 07:55
Vital Signs
Temp Pulse Resp BP Pulse Ox
97.5 F 87 16 111/71 93
01/30/24 07:55 01/30/24 07:55 01/30/24 07:55 01/30/24 07:55 01/30/24 07:55
Intake & Output
01/28/24 01/29/24 01/30/24 01/31/24
06:59 06:59 06:59 06:59
Intake Total 810 / 810 1320 / 1320 240 / 240 480 / 480
Output Total 700 / 700 700 / 700 150 / 150 150 / 150
Balance 110 / 110 620 / 620 90 / 90 330 / 330
Physical Exam
Physical Exam
GEN: No distress, awake, alert, lying in bed.
HEENT: supple, anicteric, mmm
LUNGS: CTA b/l, no wheezes/rales
CV: Reg, S1/S2, 1/6 syst murmur
EXT: No clubbing, cyanosis, or edema
NEURO: Gross non-focal
SKIN: Warm, dry, no rash
[2024-01-30 09:22] LABS: 24 Hour Urine Total Volume Not Provided mL; Urine Collection Length Not Provided hr; Urine Free Kappa Light Chains 95.76 mg/L (0.00-32.90); Urine Free Lambda Light Chains 19.49 mg/L (0.00-3.79)
--- NOTE | 2024-01-30 09:33 | W.PN.HOSP.TC ---
Today's Communication/Plan
-
Oncology consult. Neurosurgery eval.
Assessment / Plan
Assessment / Plan
Physical exam:
General: Acute on chronically ill
HEENT: Normocephalic, Atraumatic and Moist Mucous Membranes
Respiratory: Decreased breath sounds bilateral; Negative Wheezes, Rales or Rhonchi
Cardiac: Regular Rhythm and S1/S2, systolic murmur
GI: Soft, Nontender and Nondistended
Musculoskeletal: No Clubbing, No Cyanosis and presence B/L Edema
Neuro: Awake, Alert and Oriented, generalized weakness present with more pronounced on the left lower extremity. Sensory deficit glove stock pattern.
Psych: Anxious
A/P:
Brain lesions--> acute stroke and either metastatic lesions or less likely but still possible infectious/embolic:
Neurology and I discussed with patient and family at bedside today
Seen and reviewed MRI of the brain
Reviewed EMG results
Will continue with aspirin
Might consider anticoagulation if evidence to use anticoagulant.
Will check fasting lipids in a.m. and assess for statins
Continue cardiac monitoring
Will check carotid ultrasound in a.m.
Continue NIH score
Oncology consult-Omena texted oncology today
Neurosurgery consult-Omena texted neurosurgery today
Discussed with ID and they will do blood cultures and echocardiogram.
Elevated inflammatory markers, unclear if underlying autoimmune inflammatory process or active infection that has not been completely ruled out yet
Will consider CT scan of the chest and abdomen looking for primary source of brain lesions but will wait for oncology evaluation and input.
Discussed with daughter at bedside today on 01/29
Discussed with attending RN
B12 deficiency:
Start B12 replacement
Acute diastolic congestive heart failure:
Change IV diuretics to oral diuretics today. Lasix 20 mg p.o. daily
BNP upon admission 1989
Monitor strict I/O
Monitor daily weight
Monitor renal function and electrolytes
Reviewed latest echocardiogram on our system
Continue guideline-directed medical therapy for heart failure (GDMT)
Fluid restriction
Salt restriction
Heart failure education
Follow up clinical response
Cardiology consult appreciated
Acute hypoxic respiratory insufficiency likely related to acute diastolic congestive heart failure and bilateral pleural effusions:
CTA negative for PE
Doubt infectious process
Bilateral pleural effusions noted
Continue diuretics
Pulmonary consult appreciated. Pulmonary does not think this is pneumonia.
Updated son, Troy over the phone on 01/27.
Leukocytosis:
Reactive versus infectious
Remains afebrile
Follow-up trend
Depression versus adjustment disorder:
I would concur with cardiology and pulmonology that a psychiatry consultation would be beneficial I will defer to psych if medications required
Psychiatry consulted and did not think she needed antidepressants.
Elevated troponin:
Nonischemic myocardial injury
Follow-up.
Nonobstructive CAD:
Continue aspirin beta-blockers
KRUNAL on CKD versus CKD with new levels of renal function:
Likely cardiorenal component
Avoid nephrotoxic
Monitor renal function
Hypothyroidism:
Continue thyroid replacement
TSH down to 3.63 so no need to do anything different.
Gastric cancer:
Status post chemo, radiation, partial gastrectomy.
DVT prophylaxis-heparin SQ
CODE STATUS-full code
Total time spent on today's encounter was 52 minutes which included time spent in counseling the patient/family regarding diagnosis and treatment plan as listed above, goals of care, and symptom management. Case was discussed with nursing staff,
specialists, and care coordinators/case management. All labs and imaging personally reviewed by me. Remainder the time spent in detailed review of previous records, lab data, imaging, and other medical provider documentation.
Anticipated Discharge: > 48 hours
Subjective/Interval History
-
Date of Service: January 30, 2024
Patient still weak, tired, upset about news. No chest pain or shortness of breath. Afebrile
Objective Data
-
Labs:
Laboratory Results
01/30/24
08:53
Sodium Pending
Potassium Pending
Chloride Pending
Carbon Dioxide Pending
BUN Pending
Creatinine Pending
Glucose Pending
Calcium Pending
Vital Signs:
Vital Signs
Temp Pulse Resp BP Pulse Ox
97.5 F 87 16 111/71 93
01/30/24 07:55 01/30/24 07:55 01/30/24 07:55 01/30/24 07:55 01/30/24 07:55
I&O
01/29/24 01/30/24 01/31/24
06:59 06:59 06:59
Intake Total 1320 / 1320 240 / 240 480 / 480
Output Total 700 / 700 150 / 150 150 / 150
Balance 620 / 620 90 / 90 330 / 330
[2024-01-30] MEDS: NORVASC 5 MG PO (09:50)
[2024-01-30] MEDS: VITAMIN B-12 1000 MCG PO (09:51)
[2024-01-30] MEDS: LASIX 40 MG PO (09:51)
[2024-01-30] MEDS: VITAMIN D3 (cholecalciferol) PO (09:53)
[2024-01-30] MEDS: LOW STRENGTH ASPIRIN PO (09:54)
[2024-01-30] MEDS: HEPARIN SC ×2 (09:54→20:25)
[2024-01-30 09:58] LABS: Blood Urea Nitrogen 59 mg/dl (7-17); Calcium 8.8 mg/dl (8.4-10.2); Carbon Dioxide 20 mmol/L (22-30); Chloride 101 mmol/L (98-107); Estimated Creatinine Clearance 20 ml/min; Glucose 126 mg/dl (70-99); Potassium 3.7 mmol/L (3.5-5.1); Sodium 137 mmol/L (135-145); eGFR 28.31
--- NOTE | 2024-01-30 11:32 | W.PN.NEURO.1 ---
Today's Communication / Plan
-
Agree with consultation to hematology oncology for the patient's multifocal brain metastases which may be related to prior history of gastric carcinoma
Continue aspirin
B12 replacement
No clear indication at this time for neurosurgical consultation
No indication at this time for antiseizure medication
Neuro Assessment/Plan
Assessment
78 year-old female with progressively worsening fatigue and LLE>RLE as well as proximal BUE weakness.
EMG confirmed sensorimotor polyneuropathy
MRI brain demonstrated 2 areas of large and medium sized tumor without mass effect (including left frontal lobe) and nearly innumerable acute ischemic lesions bihemispherically which may be attributed to the patient's recent cardiac catheterization.
Plan
Agree with consultation to hematology oncology for the patient's multifocal brain metastases which may be related to prior history of gastric carcinoma
Continue aspirin
B12 replacement
No clear indication at this time for neurosurgical consultation
No indication at this time for antiseizure medication
Will follow as needed. Please contact us with additional questions or issues
Subjective/Objective
Subjective Data
Date of Service: January 30, 2024
'Odd'
Objective Data
Vital Signs
Temp Pulse Resp BP Pulse Ox
36.4 C 87 16 111/71 93
01/30/24 07:55 01/30/24 07:55 01/30/24 07:55 01/30/24 07:55 01/30/24 07:55
Lab Results
01/29/24 05:03
01/30/24 08:53
Sodium 137 mmol/L (135-145) 01/30/24 08:53
Potassium 3.7 mmol/L (3.5-5.1) 01/30/24 08:53
BUN 59 mg/dl (7-17) H 01/30/24 08:53
Glucose 126 mg/dl (70-99) H 08/30/24 08:53
Calcium 8.8 mg/dl (8.4-10.2) 01/30/24 08:53
Eav-H-Fyfgzckcqab Pept 1990 pg/ml 01/26/24 20:54
Vitamin B12 204 pg/ml (239-931) L 01/29/24 05:03
Patient Allergies
No Known Allergies Allergy (Verified 01/26/24 20:56)
Review of Systems
-
Unable to obtain full review of systems at this time due to: Aphasia
History Source: Patient
All other systems: Reviewed and negative
Physical Exam
-
General: No Apparent Distress and Appears Stated Age
Eyes: Round OU, Octa Conjunctivae and No Ptosis
HEENT: Anicteric and Moist Mucous Membranes
Neck: Full Range of Motion
Respiratory: No Dyspnea
Cardiac: No JVD
GI: Non-distended
Skin: Unremarkable
Extremities: No Clubbing, No Cyanosis and No Edema
Psych: Negative Intact Judgement/Insight
Extended Neurological Exam
Mood & Affect: Mood Unremarkable and Affect Unremarkable
Attention Span & Concentration: Awake, Interactive and Severe Difficulty with 2 Step Request
Memory: Unable to Recall Personal History
Tremor: Hand Tremor Absent and Head Tremor Absent
Speech: Moderately Reduced Output and Other (Low volume)
Cranial Nerve II: Left Eye: Pupillary Size Unremarkable and Visual Sanchez Grossly Intact
Cranial Nerve II: Right Eye: Pupillary Size Unremarkable and Visual Sanchez Grossly Intact
Cranial Nerves III, IV, : Extraocular Movement: Grossly Intact
Cranial Nerve VII: Facial Symmetry: Reduced (On the left more than right)
Cranial Nerve VIII: Hearing: Unremarkable Hearing to Normal Conversational Volume
Muscle Strength, Overall: Reduced (Mobility left lower extremity distally greater than proximally)
Muscle Bulk & Tone: Bulk Unremarkable and Tone Unremarkable
Cold Sensation: Unable to Assess
Vibration Sensation: Unable to Assess
Touch Sensation: Unremarkable
Coordination: Reaches for Objects without Difficulty
Gait & Station: Wide Based and Unable to Assess (Needs two-person support for standing and ambulating)
Data Reviewed
-
MRI Head: Report Reviewed and Image Reviewed
Labs: Report Reviewed
Reviewed with: Physician, Patient and Family
Old Records: Summarized
Past History
Past History
ED Past Medical History: Cancer (gastric 2019 - chemo, radiation, partial gastrectomy), HTN, Hypothyroidism, Other (Cholelithiasis) and Other (Hx DVT RUE after PICC insertion. 2019. Tx with Bruno)
ED Past Surgical History: Cholecystectomy, Gynecological (Tubal, ), Orthopedic (toe amputation) and Other (partial gastrectomy, Right breast calcification removed)
Social History
Tobacco: Non-smoker
Alcohol: None
Drug: None
Personal:
Living: with family
Family History
Family History: Other (reviewed and non-contributory)
Medications
-
Medications:
Generic Name Dose Route Start Last Admin
Trade Name Freq PRN Reason Stop Dose Admin
Acetaminophen 650 mg 01/27/24 00:56
Acetaminophen 325 Mg Tablet PO 02/24/24 00:55
Q4HPRN PRN
mild pain/STOKES/temp> 100.4F
Amlodipine Besylate 5 mg 01/27/24 08:00 01/30/24 09:50
Amlodipine 5 Mg Tablet PO 02/24/24 07:59 5 mg
DAILY ROSE Administration
Aspirin 81 mg 01/27/24 08:00 01/30/24 09:54
Aspirin 81 Mg Chewable Tablet PO 02/24/24 07:59 Not Given
DAILY ROSE
Cholecalciferol 75 mcg 01/27/24 08:00 01/30/24 09:53
Cholecalciferol (Vitamin D3) 25 Mcg Tablet (1,000 Units) PO 02/24/24 07:59 Not Given
DAILY ROSE
Cyanocobalamin 1,000 mcg 01/30/24 08:00 01/30/24 09:51
Cyanocobalamin 1,000 Mcg Tablet PO 02/27/24 07:59 1,000 mcg
DAILY ROSE Administration
Furosemide 40 mg 01/30/24 08:00 01/30/24 09:51
Furosemide 40 Mg Tablet PO 02/27/24 07:59 40 mg
DAILY ROSE Administration
Heparin Sodium 5,000 units 01/27/24 08:00 01/30/24 09:54
Heparin 5,000 Units/Ml 1 Ml Vial SC 02/24/24 07:59 Not Given
Q12 ROSE
Levothyroxine Sodium 137 mcg 01/28/24 06:00 01/30/24 05:51
Levothyroxine 137 Mcg Tablet PO 02/25/24 05:59 137 mcg
DAILY@0600 ROSE Administration
Sodium Chloride 0 flush 01/27/24 03:00
Sodium Chloride 0.9% (Flush) Syringe IV 02/24/24 02:59
PER PROTOCOL ROSE
--- NOTE | 2024-01-30 12:02 | RESPNOTE ---
Daughter refused to allow patient to perform VC & NIF at this time
--- NOTE | 2024-01-30 13:05 | W.PN.UPDATE ---
Update Note
Progress Note Update
patient seen chart reviewed. patient's d at bedside. reviewed mri. family understands results of mri may explain the sx she has been experiencing and workup continuing. clearly patient's sx are not symptomatic of depression or anxiety at this
point although of course this news is not positive. patient was very tired today and wanted to rest . patient does not feel she needs psych at this point so we will sign off. please let us know if we can be of any help in the future.
--- NOTE | 2024-01-30 13:54 | W.PN.ID1 ---
Addendum entered and electronically signed by Eva Boateng MD 01/30/24 14:58:
Contacted by Neurosurgery Dr Simpson - she has concerns for embolic cause of lesions
blood cultures x2 ordered
TTE
no known primary at this time, I do note questionable lesion on the CT a/p 10/23, I do not see a follow up colonoscopy - consider repeat ct a/p with iv and oral contrast
will follow
Original Note:
Date of Service
Date of Service: January 30, 2024
Today's Communication
Note MRI brain findings- likely malignancy
Also elevated free light chains
At present, little evidence of an infectious process.
Suspect leukocytosis at present is reactive.
Would not recommend antibiotics
ID service will no longer actively follow this patient please recall for further questions
Assessment / Plan
Leukocytosis
Suspected metastatic malignancy
Fatigue / weakness
Elevated ESR / CRP
HTN
Hypothyroidism
Cholelithiasis
Hx Gastric cancer (2019; chemo, XRT)
Recommendations:
Note MRI brain findings- likely malignancy
Also elevated free light chains
At present, little evidence of an infectious process.
Suspect leukocytosis at present it is reactive.
Would not recommend antibiotics
ID service will no longer actively follow this patient please recall for further questions
Chief Complaint
-: Leukocytosis
Subjective / Review of Systems
afebrile
on 3L
no events overnight
Vital Signs / Physical Exam
Vital Signs
Vital Signs
Temp Pulse Resp BP Pulse Ox
97.5 F 101 18 107/73 94
01/30/24 12:00 01/30/24 12:00 01/30/24 12:00 01/30/24 12:00 01/30/24 12:00
Physical Exam
Constitutional: No Acute Distress
Cardiovascular: Regular Rate and S1/S2; Negative Murmur or Rub
Pulmonary: Clear and Symmetric; Negative Wheezes or Rales
Gastrointestinal: Soft, Non Tender, Non Distended and Normal Bowel Sounds
Skin: Warm and Dry; Negative Rash or Jaundice
Objective Data
Lab Data
Lab Results
01/29/24 05:03
01/30/24 08:53
ESR 83 mm/hour (0-20) H 01/28/24 05:17
Estimated Creat Clear 20 ml/min 01/30/24 08:53
Total Bilirubin 0.6 mg/dl (0.2-1.3) 01/28/24 05:17
AST 25 U/L (14-36) 01/28/24 05:17
ALT 10 U/L (0-35) 01/28/24 05:17
Alkaline Phosphatase 72 U/L (38-126) 01/28/24 05:17
C-Reactive Protein 44.60 mg/L (0.0-10.00) H 01/28/24 05:17
Most recent labs reviewed.
free light chains elevated
urine culture 20K bacteria
MRI: Report Reviewed (subcentimeter enhancing foci throughout the supratentorium and infratentorial most consistent with metastatic disease)
Imaging:
01/28 MRI brain: subcentimeter enhancing foci throughout the supratentorium and infratentorial most consistent with metastatic disease
01/29/24 CT Head : There are no acute intracranial abnormalities. 2.5 cm calcified right frontal meningioma with moderate impingement upon the underlying right frontal gyri. There is moderate diffuse cortical atrophy with moderate nonspecific white
matter changes
01/26/2024 CXR (2 view): Small, left greater than right 5 lateral pleural effusions with adjacent bibasilar opacities. Cardiac and mediastinal contours are mildly enlarged.
01/16/2024 CT chest: 1. No evidence of pulmonary embolism. 2. Small left greater than right lateral pleural effusions with adjacent atelectasis. 3. Postoperative changes in the upper abdomen with mild wall thickening of the gastric remnant which
may be due to underdistention however can be seen with gastritis. 4. Prior cholecystectomy with prominence of the biliary ducts, likely secondary to reservoir effect.
--- NOTE | 2024-01-30 17:44 | CM ---
stated not ready for dc yet.
Spoke with Jorgito at [facility] he said to call when pt ready for dc.He will check on a bed.
PLAN To [facility] if bed available .
[2024-01-30] MEDS: TYLENOL 650 MG PO (20:45)
[2024-01-31 03:00] VITALS: BP 109/68
[2024-01-31 03:02] LABS: ANA, IgG Reflex to HEp-2 Detected (None Detected)
[2024-01-31 06:00] VITALS: BMI 23.5
[2024-01-31] MEDS: SYNTHROID 137 MCG PO (07:17)
[2024-01-31 07:35] VITALS: BP 98/63
[2024-01-31 08:05] LABS: INR 1.16; PT 14.6 Sec (11.4-14.6)
[2024-01-31 08:29] LABS: % Basophils 0.5 % (0-2); % Eosinophils 0.9 % (0-6); % Monocytes 7.6 % (1.7-9.3); Absolute Basophils 0.1 10^3/uL (0-0.2); Absolute Eosinophils 0.1 10^3/uL (0-0.7); Absolute Immature Granulocytes 0.1 10^3/uL (0-0.05); Absolute Lymphocytes 0.7 10^3/uL (1.2-3.4); Absolute Neutrophils 11.1 10^3/uL (1.4-6.5); Hematocrit 33.6 % (37.0-47.0); Hemoglobin 11.6 g/dL (12.0-16.0); Mean Corp Hgb Conc. 34.5 g/dL (33.0-37.0); Mean Corpuscular Hgb 29.5 pg (27.0-31.0); Mean Corpuscular Volume 85.5 fL (81.0-99.0); Mean Platelet Volume 9.7 fL (7.4-10.4); Nucleated Red Blood Cells % 0 %; Platelet Count 387 10^3/uL (130-400); Red Blood Cell Count 3.93 10^6/uL (4.20-5.40); Red Cell Dist. Width 13.6 % (11.5-14.5); White Blood Cell Count 13.1 10^3/uL (4.8-10.8)
[2024-01-31 08:46] LABS: ALT (SGPT) 11 U/L (0-35); AST (SGOT) 23 U/L (14-36); Albumin 3.2 g/dl (3.5-5.0); Alkaline Phosphatase 71 U/L (38-126); Blood Urea Nitrogen 69 mg/dl (7-17); Calcium 8.3 mg/dl (8.4-10.2); Carbon Dioxide 17 mmol/L (22-30); Chloride 102 mmol/L (98-107); Estimated Creatinine Clearance 19 ml/min; Glucose 96 mg/dl (70-99); HDL Cholesterol 37 mg/dl; LDL Cholesterol, Calculated 73 mg/dl; Potassium 3.8 mmol/L (3.5-5.1); Sodium 136 mmol/L (135-145); Total Bilirubin 0.6 mg/dl (0.2-1.3); Total Cholesterol 136 mg/dl (50-199); Triglyceride 133 mg/dl (10-149); Very Low Density Lipoprotein 26 mg/dl (0-30); eGFR 26.53
--- NOTE | 2024-01-31 09:11 | W.PN.HOSP.TC ---
Today's Communication/Plan
-
Continue current management.
Assessment / Plan
Assessment / Plan
Physical exam:
General: Acute on chronically ill
HEENT: Normocephalic, Atraumatic and Moist Mucous Membranes
Respiratory: Decreased breath sounds bilateral; Negative Wheezes, Rales or Rhonchi
Cardiac: Regular Rhythm and S1/S2, systolic murmur
GI: Soft, Nontender and Nondistended
Musculoskeletal: No Clubbing, No Cyanosis and presence B/L Edema
Neuro: Awake, Alert and Oriented, generalized weakness present with more pronounced on the left lower extremity. Sensory deficit glove stock pattern.
Psych: Anxious
A/P:
Brain lesions--> acute stroke and either metastatic lesions or less likely but still possible infectious/embolic:
Neurology and I discussed with patient and family at bedside yesterday
Seen and reviewed MRI of the brain
Reviewed EMG results
Will continue with aspirin
Might consider anticoagulation if evidence to use anticoagulant.
Will check fasting lipids in a.m. and assess for statins
Continue cardiac monitoring
Will check carotid ultrasound in a.m.
Continue NIH score
Oncology consult-[facility] texted oncology yesterday
Neurosurgery consult-[facility] texted neurosurgery yesterday
Discussed with ID yesterday and they will do blood cultures and echocardiogram.
Elevated inflammatory markers, unclear if underlying autoimmune inflammatory process or active infection that has not been completely ruled out yet
Will consider CT scan of the chest and abdomen looking for primary source of brain lesions but will wait for oncology evaluation and input.
Discussed with daughter at bedside today on 01/30
Discussed with attending RN
Awaiting oncology consultation today
B12 deficiency:
Start B12 replacement
Acute diastolic congestive heart failure:
Change IV diuretics to oral diuretics today. Lasix 20 mg p.o. daily
BNP upon admission 1989
Monitor strict I/O
Monitor daily weight
Monitor renal function and electrolytes
Reviewed latest echocardiogram on our system
Continue guideline-directed medical therapy for heart failure (GDMT)
Fluid restriction
Salt restriction
Heart failure education
Follow up clinical response
Cardiology consult appreciated
Acute hypoxic respiratory insufficiency likely related to acute diastolic congestive heart failure and bilateral pleural effusions:
CTA negative for PE
Doubt infectious process
Bilateral pleural effusions noted
Continue diuretics
Pulmonary consult appreciated. Pulmonary does not think this is pneumonia.
Updated son, Troy over the phone on 01/27.
Leukocytosis:
Reactive versus infectious
Remains afebrile
Follow-up trend
Depression versus adjustment disorder:
I would concur with cardiology and pulmonology that a psychiatry consultation would be beneficial I will defer to psych if medications required
Psychiatry consulted and did not think she needed antidepressants.
Elevated troponin:
Nonischemic myocardial injury
Follow-up.
Nonobstructive CAD:
Continue aspirin beta-blockers
KRUNAL on CKD versus CKD with new levels of renal function:
Likely cardiorenal component
Avoid nephrotoxic
Monitor renal function
Hypothyroidism:
Continue thyroid replacement
TSH down to 3.63 so no need to do anything different.
Gastric cancer:
Status post chemo, radiation, partial gastrectomy.
DVT prophylaxis-heparin SQ
CODE STATUS-full code
Total time spent on today's encounter was 52 minutes which included time spent in counseling the patient/family regarding diagnosis and treatment plan as listed above, goals of care, and symptom management. Case was discussed with nursing staff,
specialists, and care coordinators/case management. All labs and imaging personally reviewed by me. Remainder the time spent in detailed review of previous records, lab data, imaging, and other medical provider documentation.
Anticipated Discharge: > 48 hours
Subjective/Interval History
-
Date of Service: January 31, 2024
Patient with generalized weakness. Denies chest pain or shortness of breath. Afebrile
Objective Data
-
Labs:
Laboratory Results
01/31/24 01/31/24
05:39 05:40
WBC 13.1 H
Hgb 11.6 L
Hct 33.6 L
Plt Count 387
PT 14.6
INR 1.16
Sodium 136
Potassium 3.8
Chloride 102
Carbon Dioxide 17 L
BUN 69 H
Creatinine 1.9 H
Glucose 96
Calcium 8.3 L
Total Bilirubin 0.6
AST 23
ALT 11
Alkaline Phosphatase 71
Vital Signs:
Vital Signs
Temp Pulse Resp BP Pulse Ox
97.8 F 92 18 98/63 93
01/31/24 07:35 01/31/24 07:35 01/31/24 07:35 01/31/24 07:35 01/31/24 07:35
I&O
01/30/24 01/31/24 02/01/24
06:59 06:59 06:59
Intake Total 240 / 240 1530 / 1530
Output Total 150 / 150 675 / 675
Balance 90 / 90 855 / 855
[2024-01-31] MEDS: HEPARIN SC (10:59)
[2024-01-31] MEDS: VITAMIN D3 (cholecalciferol) PO (11:00)
[2024-01-31] MEDS: LOW STRENGTH ASPIRIN PO (11:00)
[2024-01-31] MEDS: VITAMIN B-12 PO (11:01)
[2024-01-31] MEDS: NORVASC PO (11:01)
[2024-01-31 12:00] VITALS: BP 105/63
--- NOTE | 2024-01-31 13:14 | CON.ONC ---
Impression
Impression
Hx gastric cancer stage II, treated with curative intent through 01/2020
Innnumerable brain lesions measuring up to 6-mm, etiology unclear, metastatic disease suspected
Mild confusion
Loss of appetite
Difficulty swallowing
Abrupt caliber change within transverse colon, evaluated by virtual colonosocpy
Plan
Plan
CT A/P now, eval for new/recurrent primary.
Consider GI eval for upper or lower GI primary.
Risk of brain mets with gastric cancer is 1% or less and seems unlikely with no other met disease. May ultimately need biopsy of possible brain met. Not clear at this time whether she would choose to proceed.
Thank you for consult, will follow along with you.
Patient History
History of Present Illness
78-year-old woman, patient of Dr. Christopher Velásquez for history of gastric cancer. Patient was diagnosed with gastric cancer in 2018. She underwent Billroth II gastrectomy with gastrojejunostomy in May 2019 for stage IIa (T3 N0) disease. Her
distal margin was positive. She was treated with adjuvant 5-fluorouracil/oxaliplatin (no taxotere due to allergic reaction) followed by concurrent radiation with 5-fluorouracil. She has undergone virtual colonoscopy. She underwent CT of chest
abdomen and pelvis in September of this year which showed what sounds like a transition point in the proximal transverse colon but was otherwise stable. Patient was concerned at her recent visit that her CEA was 3. However she generally did well until
about a month ago when she began to experience shortness of breath. She was hospitalized and treated for CHF and then discharged home. She initially did well but then developed disequilibrium and difficulty walking straight. After a few days of
this, she came to the [facility] emergency room on January 25 with complaint of shortness of breath, fatigue, loss of appetite, unintentional weight loss and difficulty walking she has been treated for CHF without definite improvement in
overall symptoms. She underwent an MRI of the brain on January 28 with which unexpectedly showed innumerable foci of enhancement measuring up to 6 mm in brain. We are consulted regarding probable brain mets. Patient complains of not being able to
eat in part due to no appetite. She said at 1 point that she had pain with swallowing but then denied it shortly thereafter. She states she hurts all over and daughter has noticed that it is difficult to touch her without causing pain. She does
have a history of chemo neuropathy and underwent an EMG this admission that showed length dependent axonal sensorimotor peripheral neuropathy. When asked whether she would want treatment if diagnosed with recurrent gastric cancer or another guess
another cancer, patient indicated that she is really not sure and would have to work through it.
Past-Medical/Surgical History
Past Medical History:
Gastric cancer s/p partial gastrectomy/chemo/radiation, treated with curative intent, JATIN as of 10/2023 CT
HTN
HFpEF
nonocclusive CAD
aortic stenosis
hypothyroidism
cholelithiasis
DVT RUE due to PICC line 2018
osteoporosis
Surgical History:
Cardiac catheterization 01/2024
Cholecystectomy
toe amputation
partial gastrectomy
right breast calcification removed
tubal ligation
Family History: Maternal grandfather- CVA. No family history of cancer or other blood disorders
Social History: Denies illicit drug use, smoking, alcohol usage.
Allergies: No known allergies.
Patient Medication
�Medication �Instructions �Recorded �Confirmed �Last Taken �Type
amlodipine 5 mg tablet 5 mg PO DAILY Blood Pressure 01/16/24 01/26/24 01/26/24 History
cholecalciferol (vitamin D3) 25 75 mcg PO DAILY Supplement 01/16/24 01/26/24 01/26/24 History
mcg (1,000 unit) tablet (Vitamin
D3)
denosumab 60 mg/mL subcutaneous 60 mg SC [id number] bone loss 01/16/24 01/26/24 Unknown History
syringe (Prolia)
losartan 100 mg tablet 100 mg PO DAILY Blood Pressure 01/16/24 01/26/24 01/26/24 History
aspirin 81 mg chewable tablet 81 mg PO DAILY 30 days #30 tabs 08/01/26/24 01/26/24 Rx
furosemide 20 mg tablet 20 mg PO DAILY 30 days #30 tabs 01/20/24 01/26/24 01/26/24 Rx
levothyroxine 137 mcg tablet 137 mcg PO DAILY #30 tabs 01/20/24 01/26/24 01/26/24 Rx
(Synthroid)
acetaminophen 500 mg tablet 500 mg PO Q6HPRN PRN mild pain 01/26/24 01/26/24 01/25/24 History
(Tylenol Extra Strength)
Active Medications
Generic Name Dose Route Start Last Admin
Trade Name Freq PRN Reason Stop Dose Admin
Acetaminophen 650 mg 01/27/24 00:56 01/30/24 20:45
Acetaminophen 325 Mg Tablet PO 02/24/24 00:55 650 mg
Q4HPRN PRN Administration
mild pain/STOKES/temp> 100.4F
Amlodipine Besylate 5 mg 01/27/24 08:00 01/31/24 11:01
Amlodipine 5 Mg Tablet PO 02/24/24 07:59 Not Given
DAILY ROSE
Aspirin 81 mg 01/27/24 08:00 01/31/24 11:00
Aspirin 81 Mg Chewable Tablet PO 02/24/24 07:59 Not Given
DAILY ROSE
Cholecalciferol 75 mcg 01/27/24 08:00 01/31/24 11:00
Cholecalciferol (Vitamin D3) 25 Mcg Tablet (1,000 Units) PO 02/24/24 07:59 Not Given
DAILY ROSE
Cyanocobalamin 1,000 mcg 01/30/24 08:00 01/31/24 11:01
Cyanocobalamin 1,000 Mcg Tablet PO 02/27/24 07:59 Not Given
DAILY ROSE
Furosemide 20 mg 01/31/24 08:00 01/31/24 11:21
Furosemide 20 Mg Tablet PO 02/28/24 07:59 Not Given
DAILY ROSE
Heparin Sodium 5,000 units 01/27/24 08:00 01/31/24 10:59
Heparin 5,000 Units/Ml 1 Ml Vial SC 02/24/24 07:59 Not Given
Q12 ROSE
Levothyroxine Sodium 137 mcg 01/28/24 06:00 01/31/24 07:17
Levothyroxine 137 Mcg Tablet PO 02/25/24 05:59 137 mcg
DAILY@0600 ROSE Administration
Sodium Chloride 0 flush 01/27/24 03:00
Sodium Chloride 0.9% (Flush) Syringe IV 02/24/24 02:59
PER PROTOCOL ROSE
Review of Systems
-
Unable to obtain full review of systems at this time due to: Other (Mildly confused)
History Source: Patient, Family (daughter at bedside) and Records
Constitutional: Reports Weight Loss, No Appetite, Fatigue and Weakness
EENT: Reports Other (difficulty swallowing)
Respiratory: Denies Cough or Hemoptysis
Cardiac: Reports No Symptoms; Denies Chest Pain
GI: Reports No Symptoms; Denies Abdominal Pain
Breast: Reports No Symptoms
: Reports No Symptoms
Musculoskeletal: Reports No Symptoms
Skin: Reports No Symptoms
Neuro: Reports Ataxia and Other
Endocrine: Reports No Symptoms
Hematologic/Lymphatic: Reports No Symptoms
Allergy / Immunology: Reports No Symptoms
Psych: Reports No Symptoms
Physical Exam
-
General: Well Developed, Well Nourished and Appears Chronically Ill
HEENT: Moist Mucous Membranes; Negative Jaundice
Cardiology: Normal Sinus Rhythm, S1 and S2
Pulmonary: Clear; Negative Wheezes
GI: Soft and Normal Bowel Sounds
Musculoskeletal: No Clubbing, No Cyanosis and No Edema
Extremities: Negative Phlebitic Signs
Neurology: Other (mildly confused); Negative No Word Finding Difficulty
Skin: Warm and Dry
Hematologic / Lymphatic: No Lymphadenopathy
Psych: Calm
Labs
Lab Results
WBC 13.1 10^3/uL (4.8-10.8) H 01/31/24 05:40
RBC 3.93 10^6/uL (4.20-5.40) L 01/31/24 05:40
Hgb 11.6 g/dL (12.0-16.0) L 01/31/24 05:40
Hct 33.6 % (37.0-47.0) L 01/31/24 05:40
MCV 85.5 fL (81.0-99.0) 01/31/24 05:40
MCH 29.5 pg (27.0-31.0) 01/31/24 05:40
MCHC 34.5 g/dL (33.0-37.0) 01/31/24 05:40
RDW 13.6 % (11.5-14.5) 01/31/24 05:40
Plt Count 387 10^3/uL (130-400) 01/31/24 05:40
MPV 9.7 fL (7.4-10.4) 01/31/24 05:40
Abs Immat Gran (auto) 0.1 10^3/uL (0-0.05) H 01/31/24 05:40
Absolute Neuts (auto) 11.1 10^3/uL (1.4-6.5) H 01/31/24 05:40
Absolute Lymphs (auto) 0.7 10^3/uL (1.2-3.4) L 01/31/24 05:40
Absolute Monos (auto) 1.0 10^3/uL (0.1-0.6) H 01/31/24 05:40
Absolute Eos (auto) 0.1 10^3/uL (0-0.7) 01/31/24 05:40
Absolute Basos (auto) 0.1 10^3/uL (0-0.2) 01/31/24 05:40
Immature Gran % 1.0 % (0-0.5) H 01/31/24 05:40
Neutrophils % 85.0 % (42.2-75.2) H 01/31/24 05:40
Lymphocytes % 5.0 % (20.5-51.1) L 01/31/24 05:40
Monocytes % 7.6 % (1.7-9.3) 01/31/24 05:40
Eosinophils % 0.9 % (0-6) 01/31/24 05:40
Basophils % 0.5 % (0-2) 01/31/24 05:40
Creatinine 1.9 mg/dL (0.6-1.0) H 01/31/24 05:40
01/16/24 chest CTA: no met dz
CT chest abdomen pelvis 10/15/2023: Postoperative changes compatible with prior gastrojejunostomy. Short segment of abrupt caliber change and thickening within proximal transverse colon beginning at the hepatic flexure.
Last breast imagin04/24/22, no evidence of malignancy
Vital Signs
Vital Signs
Temp Pulse Resp BP Pulse Ox
97.6 F 91 16 105/63 95
01/31/24 12:00 01/31/24 12:00 01/31/24 12:00 01/31/24 12:00 01/31/24 12:00
--- NOTE | 2024-01-31 15:01 | CON.NS ---
Consultation
-
Date/Time Consultation Performed: 01/31/2024; 15:00
Performing Provider: Calvin
Chief Complaint
History of Present Illness
This is a neurosurgical consultation on a 78-year-old female that presented on 01/26/2024 with complaints of shortness of breath. She did recently undergo cardiac catheterization earlier this month on previous hospitalization from 01/15 to 01/20/2020
for secondary to shortness of breath with chest pain and elevated troponins. At that time, she was treated with aspirin, Plavix. It was found that she was hypoxic on room air in the emergency room at 87%. She was admitted for further workup. She
does have a past medical history significant for gastric cancer, status postchemotherapy/radiation/partial gastrectomy, as well as a DVT in the right upper extremity in 2018. It was felt that she had acute hypoxic respiratory insufficiency due to
congestive heart failure.
She is also seen infectious disease due to persistent leukocytosis. She had noncontrast head CT that demonstrated a calcified right frontal meningioma on 01/29/2024. On 01/30/2024, she was seen by neurology after MRI of the brain was performed.
This demonstrated multiple areas of contrast-enhancement, as well as multiple DWI areas both supra, and infratentorial, which could be consistent with acute ischemic lesions. Was felt that this may be secondary to patient's recent cardiac
catheterization.
Neurosurgery consulted for further input regarding these multiple lesions, which could be consistent with metastasis versus evolving infarcts. Patient had CT of the chest/abdomen/pelvis In September of this year, which showed a transition point in the
proximal transverse colon but was otherwise stable. Patient seen by oncology today, and it is recommended that she undergo a CT of the chest/abdomen/pelvis.
Patient seen and examined. Family members (~5) are at bedside.
Family reports overall changes in cognition and generalized fatigue after patient came home after cardiac cath.
Review of Systems
-
10 point review of systems including constitutional, ENT, cardiovascular, respiratory, GI, , hematologic, endocrinologic, musculoskeletal, neurologic was performed, and was negative, except for as stated in HPI.
Medication and Allergies
Home Medications
Home Medications
�Medication �Instructions �Recorded
amlodipine 5 mg tablet 5 mg PO DAILY Blood Pressure 01/16/24
cholecalciferol (vitamin D3) 25 75 mcg PO DAILY Supplement 01/16/24
mcg (1,000 unit) tablet (Vitamin
D3)
denosumab 60 mg/mL subcutaneous 60 mg SC [id number] bone loss 01/16/24
syringe (Prolia)
losartan 100 mg tablet 100 mg PO DAILY Blood Pressure 01/16/24
aspirin 81 mg chewable tablet 81 mg PO DAILY 30 days #30 tabs 01/20/24
furosemide 20 mg tablet 20 mg PO DAILY 30 days #30 tabs 01/20/24
levothyroxine 137 mcg tablet 137 mcg PO DAILY #30 tabs 01/20/24
(Synthroid)
acetaminophen 500 mg tablet 500 mg PO Q6HPRN PRN mild pain 01/26/24
(Tylenol Extra Strength)
Allergies
Allergies
Allergy/AdvReac Type Severity Reaction Status Date / Time
No Known Allergies Allergy Verified 01/26/24 20:56
Physical Exam
-
Exam:
awake, alert, NAD; multiiple family embers are at bedside.
PERRL
Face symmetric
tongue midline
Motor: left leg weakness, strength 4/5. no pronator drift.
Sensation to LT intact in arms and legs.
MRI the brain with without contrast performed on 01/29/2024 was reviewed. There is evidence of multiple small, punctate areas of contrast enhancement both supratentorially, and infratentorially. There is a right frontal what appears to be
extra-axial lesion noted which on CT demonstrates evidence of calcification, measuring approximately 2 cm. There is no obvious vasogenic edema adjacent to this lesion, therefore, likely this is most consistent with meningioma.
However, in addition, there is evidence of multiple areas of FLAIR signal hyperintensity within/scattered throughout the brain. On cross correlation with DWI imaging with there are even more lesions speckled throughout the brain which do not
appear to enhance. Imaging is most suspicious for concurrent small areas of ischemia. Additionally, the contrast-enhancement which is being noted could be embolic strokes that are evolving?
Less likely, but in the differential diagnosis, is also diffuse metastasis.
Imaging was re reviewed via secure text by radiology, who does concur that these could be areas of infarction.
Problems
-
Problem Status Onset Code
Pleural effusion J90
Assessment / Plan
-
This is a 78-year-old female with a history of gastric carcinoma, who presented with shortness of breath, in The setting of recent cardiac catheterization. Further workup during this hospitalization for left-sided weakness/off-balance revealed
multiple, and numerous, punctate areas of contrast-enhancement, and additionally even more lesions that appear to be hyperintense on DWI.
Embolic strokes versus metastatic disease appears to be in the differential diagnosis.
At present time, lesions are too numerous and small to merit surgical intervention. Additionally, patient would have to come off of antiplatelet therapy, perioperatively, for craniotomy for biopsy.
Would recommend thorough workup by oncology, and infectious disease to rule out embolic sources or metastatic disease.
If needed, may suggest lumbar puncture as well.
[2024-01-31 16:00] VITALS: BP 92/51
--- NOTE | 2024-01-31 16:11 | W.PN.ID1 ---
Date of Service
Date of Service: January 31, 2024
Today's Communication
Await blood cx's.
Observe off abx.
Assessment / Plan
Leukocytosis
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
Fatigue / weakness
Elevated ESR / CRP
HTN
Hypothyroidism
Cholelithiasis
Hx Gastric cancer (2019; chemo, XRT)
Recommendations:
Note MRI brain findings- likely malignancy
Also elevated free light chains
At present, little evidence of an infectious process.
Suspect leukocytosis at present it is reactive.
Neurosurgeon concern for embolic CVA.
TTE: no gross vegetation.
If remains suspicious for infective endocarditis, obtain BUBBA.
Follow blood cx's.
Observe off abx for now.
Chief Complaint
-: Leukocytosis
Subjective / Review of Systems
Feels tired. No STOKES. No fever/chills.
Vital Signs / Physical Exam
Vital Signs
Vital Signs
Temp Pulse Resp BP Pulse Ox
97.6 F 91 16 105/63 95
01/31/24 12:00 01/31/24 12:00 01/31/24 12:00 01/31/24 12:00 01/31/24 12:00
Physical Exam
Eyes: No Conjunctival Hemorrhage and Sclera Anicteric
Pulmonary: Clear
Gastrointestinal: Soft, Non Tender, Non Distended and Normal Bowel Sounds
Neurological: AO x 3
Objective Data
Lab Data
Lab Results
01/31/24 05:40
01/31/24 05:40
ESR 83 mm/hour (0-20) H 01/28/24 05:17
PT 14.6 Sec (11.4-14.6) 01/31/24 05:39
INR 1.16 01/31/24 05:39
Estimated Creat Clear 19 ml/min 01/31/24 05:40
Total Bilirubin 0.6 mg/dl (0.2-1.3) 01/31/24 05:40
AST 23 U/L (14-36) 01/31/24 05:40
ALT 11 U/L (0-35) 01/31/24 05:40
Alkaline Phosphatase 71 U/L (38-126) 01/31/24 05:40
C-Reactive Protein 44.60 mg/L (0.0-10.00) H 01/28/24 05:17
Most recent labs reviewed.
Micro Results:
01/30/24 18:59 Blood Culture - Pending
Blood/Venous
01/30/24 18:25 Blood Culture - Pending
Blood/Venous
Imaging:
01/28 MRI brain: subcentimeter enhancing foci throughout the supratentorium and infratentorial most consistent with metastatic disease
01/29/24 CT Head : There are no acute intracranial abnormalities. 2.5 cm calcified right frontal meningioma with moderate impingement upon the underlying right frontal gyri. There is moderate diffuse cortical atrophy with moderate nonspecific white
matter changes
01/26/2024 CXR (2 view): Small, left greater than right 5 lateral pleural effusions with adjacent bibasilar opacities. Cardiac and mediastinal contours are mildly enlarged.
01/16/2024 CT chest: 1. No evidence of pulmonary embolism. 2. Small left greater than right lateral pleural effusions with adjacent atelectasis. 3. Postoperative changes in the upper abdomen with mild wall thickening of the gastric remnant which
may be due to underdistention however can be seen with gastritis. 4. Prior cholecystectomy with prominence of the biliary ducts, likely secondary to reservoir effect.
[2024-01-31] MEDS: LIDOCAINE 4% PATCH 1 PATCH TOPICAL (16:58)
--- NOTE | 2024-01-31 18:00 | PTCARENOTE ---
Pt refusing to take meds, stating 'I don't want to take them'. Family stated that pt is having a hard time swallowing pills, food, and fluids. MD made aware of pts refusal of meds and family's comments about her having a hard time with swallowing.
ST consult ordered. Family at bedside. Pt alert and pleasant. Family stated that after news about recent imaging pt ' really doesn't want to do much'. Pt is a full code. repositioned throughout shift, purewick in place, call bond within reach.
[2024-01-31 19:00] VITALS: BP 100/66
[2024-01-31] MEDS: HEPARIN 5000 UNITS SC (20:43)
[2024-01-31 23:00] VITALS: BP 107/76
[2024-02-01 03:00] VITALS: BP 96/63
[2024-02-01 06:00] VITALS: BMI 23.6
[2024-02-01] MEDS: SYNTHROID 137 MCG PO (06:45)
[2024-02-01 07:41] LABS: % Basophils 0.4 % (0-2); % Eosinophils 0.3 % (0-6); % Lymphocytes 4.9 % (20.5-51.1); % Monocytes 11.9 % (1.7-9.3); % Neutrophils 81.5 % (42.2-75.2); Absolute Basophils 0.1 10^3/uL (0-0.2); Absolute Immature Granulocytes 0.1 10^3/uL (0-0.05); Absolute Lymphocytes 0.6 10^3/uL (1.2-3.4); Absolute Monocytes 1.4 10^3/uL (0.1-0.6); Absolute Neutrophils 9.5 10^3/uL (1.4-6.5); Hematocrit 32.6 % (37.0-47.0); Hemoglobin 11.4 g/dL (12.0-16.0); Mean Corpuscular Hgb 29.8 pg (27.0-31.0); Mean Corpuscular Volume 85.3 fL (81.0-99.0); Mean Platelet Volume 9.4 fL (7.4-10.4); Nucleated Red Blood Cells % 0 %; Platelet Count 387 10^3/uL (130-400); Red Blood Cell Count 3.82 10^6/uL (4.20-5.40); Red Cell Dist. Width 13.8 % (11.5-14.5); White Blood Cell Count 11.7 10^3/uL (4.8-10.8)
[2024-02-01] MEDS: NORVASC PO (07:53)
[2024-02-01] MEDS: HEPARIN SC ×2 (07:53→22:28)
[2024-02-01] MEDS: LOW STRENGTH ASPIRIN PO (07:53)
[2024-02-01] MEDS: VITAMIN D3 (cholecalciferol) PO (07:54)
[2024-02-01] MEDS: VITAMIN B-12 PO (07:54)
[2024-02-01] MEDS: LIDOCAINE 4% PATCH 1 PATCH TOPICAL (08:01)
[2024-02-01 08:02] LABS: Blood Urea Nitrogen 70 mg/dl (7-17); Calcium 8.2 mg/dl (8.4-10.2); Carbon Dioxide 19 mmol/L (22-30); Chloride 101 mmol/L (98-107); Estimated Creatinine Clearance 20 ml/min; Glucose 104 mg/dl (70-99); Potassium 3.8 mmol/L (3.5-5.1); Sodium 136 mmol/L (135-145); eGFR 28.31
[2024-02-01 08:11] VITALS: BP 98/69
--- NOTE | 2024-02-01 10:26 | W.PN.HOSP.TC ---
Addendum entered and electronically signed by Matthew Fuentes MD 02/01/24 13:51:
GI eval as suggested by oncology for further advise.
Original Note:
Today's Communication/Plan
-
See plan for current management.
Assessment / Plan
Assessment / Plan
Physical exam:
General: Acute on chronically ill
HEENT: Normocephalic, Atraumatic and Moist Mucous Membranes
Respiratory: Decreased breath sounds bilateral; Negative Wheezes, Rales or Rhonchi
Cardiac: Regular Rhythm and S1/S2, systolic murmur
GI: Soft, Nontender and Nondistended
Musculoskeletal: No Clubbing, No Cyanosis and presence B/L Edema
Neuro: Awake, Alert and Oriented, generalized weakness present with more pronounced on the left lower extremity. Sensory deficit glove stock pattern.
Psych: Anxious
A/P:
Brain lesions--> acute stroke and either metastatic lesions vs infectious/embolic:
Will continue with aspirin
Will start low dose statins
LDL 73
Might consider anticoagulation if evidence to use anticoagulant.
Continue cardiac monitoring
Will check carotid ultrasound
Continue NIH score
Seen and reviewed MRI of the brain
Reviewed EMG results
Oncology consult appreciated
Neurosurgery consult appreciated
ID following
TTE unremarkable and blood cultures no growth so far
Will defer to ID if BUBBA required-Cardiology has been on board recently if needed.
Family expresses some dissatisfaction of different opinions of consultants but I explained to them that we are having some extra workup to do and at times physicians do have different opinions. Nevertheless, the fundamental issues we are treating
her there is some consensus regarding dose and I discussed about them.
Discussed with family at bedside
Discussed with attending RN
KRUNAL on CKD:
She has been on diuretics, has been relatively hypotensive, and has received also contrast dye.
Hold oral diuretics today and will use intravenous if needed.
Start very gentle hydration and monitor closely.
Avoid nephrotoxic
Monitor renal function in a.m.
Watch volume status closely given heart failure recent exacerbation
Acute recurrent hypoxic respiratory insufficiency:
Unclear if atelectasis, volume overload although does not appear on physical exam, or other process such as pneumonia or other.
Incentive spirometry
Will obtain chest x-ray and lateral today. Patient hesitant on having more tests despite explaining the importance of such therefore we will see if she allows us to do the cxr.
Functioning as needed
B12 deficiency:
Continue B12 replacement
Acute diastolic congestive heart failure:
On oral diuretics today. Lasix 20 mg p.o. daily--> holding today
BNP upon admission 1989-->will repeat in am
Monitor strict I/O
Monitor daily weight
Monitor renal function and electrolytes
Reviewed latest echocardiogram on our system
Continue guideline-directed medical therapy for heart failure (GDMT)
Fluid restriction
Salt restriction
Heart failure education
Follow up clinical response
Cardiology consult appreciated
Acute hypoxic respiratory insufficiency upon admission felt to be related to acute diastolic congestive heart failure and bilateral pleural effusions:
CTA negative for PE upon admission
Doubt infectious process
Bilateral pleural effusions noted
Given diuretics
Pulmonary consult appreciated. Pulmonary does not think this is pneumonia.
Leukocytosis:
Reactive versus infectious
Remains afebrile
Follow-up trend
Depression versus adjustment disorder:
Psychiatry consulted and did not think she needed antidepressants.
Elevated troponin:
Nonischemic myocardial injury
Follow-up.
Nonobstructive CAD:
Continue aspirin beta-blockers
Hypothyroidism:
Continue thyroid replacement
TSH down to 3.63 so no need to do anything different.
Gastric cancer:
Status post chemo, radiation, partial gastrectomy.
DVT prophylaxis-heparin SQ
CODE STATUS-full code
Total time spent on today's encounter was 52 minutes which included time spent in counseling the patient/family regarding diagnosis and treatment plan as listed above, goals of care, and symptom management. Case was discussed with nursing staff,
specialists, and care coordinators/case management. All labs and imaging personally reviewed by me. Remainder the time spent in detailed review of previous records, lab data, imaging, and other medical provider documentation.
Anticipated Discharge: > 48 hours
Subjective/Interval History
-
Date of Service: February 01, 2024
Patient requires 4 L of oxygen. She denies shortness of breath. She is not eating much due to lack of appetite.
Objective Data
-
Labs:
Laboratory Results
02/01/24
05:21
WBC 11.7 H
Hgb 11.4 L
Hct 32.6 L
Plt Count 387
Sodium 136
Potassium 3.8
Chloride 101
Carbon Dioxide 19 L
BUN 70 H
Creatinine 1.8 H
Glucose 104 H
Calcium 8.2 L
Vital Signs:
Vital Signs
Temp Pulse Resp BP Pulse Ox
98.2 F 96 16 98/69 92
02/01/24 08:11 02/01/24 08:11 02/01/24 08:11 02/01/24 08:11 02/01/24 08:11
I&O
01/31/24 02/01/24 02/02/24
06:59 06:59 06:59
Intake Total 1530 / 1530 760 / 760
Output Total 675 / 675 900 / 900
Balance 855 / 855 -140 / -140
--- NOTE | 2024-02-01 10:29 | PTOTSP ---
ST Dysphagia Evaluation
Oropharyngeal function appears intact at the bedside
Pt received awake/alert with daughter present at the bedside. HOB raised upright for PO trials of puree, regular solids and thin liquids. Demo grossly fxnal mastication and bolus was orally cleared. Thin liquids by straw serial sips swallow appears
timely. No overt s/sx of aspiration observed.
Recommendations
1. Continue current diet of regular solids/thin liquids
2. Meds oral per pt preference and RN discretion
3. 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
[2024-02-01 11:46] VITALS: BP 107/69
--- NOTE | 2024-02-01 11:52 | W.PN.ID1 ---
Date of Service
Date of Service: February 01, 2024
Today's Communication
Bcx's neg.
Observe off abx.
Assessment / Plan
Leukocytosis - trending down
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
Fatigue / weakness
Elevated ESR / CRP
HTN
Hypothyroidism
Cholelithiasis
Hx Gastric cancer (2019; chemo, XRT)
Recommendations:
Note MRI brain findings- likely malignancy
Also elevated free light chains
At present, little evidence of an infectious process.
Suspect leukocytosis at present it is reactive.
Neurosurgeon concern for embolic CVA.
TTE: no gross vegetation.
Blood cx's x 2 (off abx) negative to date, unlikely IE.
If remains suspicious for infective endocarditis, obtain BUBBA.
Observe off abx.
Chief Complaint
-: Leukocytosis
Vital Signs / Physical Exam
Vital Signs
Vital Signs
Temp Pulse Resp BP Pulse Ox
98.0 F 101 20 107/69 92
02/01/24 11:46 02/01/24 11:46 02/01/24 11:46 02/01/24 11:46 02/01/24 11:46
Physical Exam
Pulmonary: Clear
Gastrointestinal: Soft, Non Tender, Non Distended and Normal Bowel Sounds
Extremities: Negative Edema
Neurological: AO x 3
Objective Data
Lab Data
Lab Results
02/01/24 05:21
02/01/24 05:21
ESR 83 mm/hour (0-20) H 01/28/24 05:17
PT 14.6 Sec (11.4-14.6) 01/31/24 05:39
INR 1.16 01/31/24 05:39
Estimated Creat Clear 20 ml/min 02/01/24 05:21
Total Bilirubin 0.6 mg/dl (0.2-1.3) 01/31/24 05:40
AST 23 U/L (14-36) 01/31/24 05:40
ALT 11 U/L (0-35) 01/31/24 05:40
Alkaline Phosphatase 71 U/L (38-126) 01/31/24 05:40
C-Reactive Protein 44.60 mg/L (0.0-10.00) H 01/28/24 05:17
Most recent labs reviewed.
Micro Results:
01/30/24 18:59 Blood Culture - Preliminary
Blood/Venous No Growth in 24 hours- Final report to follow
01/30/24 18:25 Blood Culture - Preliminary
Blood/Venous No Growth in 24 hours- Final report to follow
Imaging:
01/28 MRI brain: subcentimeter enhancing foci throughout the supratentorium and infratentorial most consistent with metastatic disease
01/29/24 CT Head : There are no acute intracranial abnormalities. 2.5 cm calcified right frontal meningioma with moderate impingement upon the underlying right frontal gyri. There is moderate diffuse cortical atrophy with moderate nonspecific white
matter changes
01/26/2024 CXR (2 view): Small, left greater than right 5 lateral pleural effusions with adjacent bibasilar opacities. Cardiac and mediastinal contours are mildly enlarged.
01/16/2024 CT chest: 1. No evidence of pulmonary embolism. 2. Small left greater than right lateral pleural effusions with adjacent atelectasis. 3. Postoperative changes in the upper abdomen with mild wall thickening of the gastric remnant which
may be due to underdistention however can be seen with gastritis. 4. Prior cholecystectomy with prominence of the biliary ducts, likely secondary to reservoir effect.
[2024-02-01] MEDS: D5/0.45%NACL 500 IV (12:01)
--- NOTE | 2024-02-01 13:43 | CON.GI ---
Consultation
-
Date/Time Consultation Requested: 02/01/2024
Date/Time Consultation Performed: 02/01/2024
Performing Provider: Radu Richardson
Reason for Consultation: r/o GI malignancy
Medical History
Chief Complaint / HPI
Chief Complaint: r/o GI malignancy
History of Present Illness:
Patient is a 78-year-old female with history of gastric CA s/p BII gastrectomy in 2019 w/ chemo and RTX, hypothyroidism, DVT of RUE who presented with dyspnea. During her workup she had a brain MRI which showed innumerable brain lesions measuring
up to 6 mm suspicious for possible metastatic lesion versus other. She was evaluated by oncology who recommended possible GI evaluation. She has never had EGD since her surgery. She had virtual colonoscopy in 2020 which showed abrupt tapering at
the transverse colon.
Past Medical History
Past Medical History: CAD, CHF, HTN, Hypothyroidism and Other
Past Surgical History: Other
Social History
Tobacco: Non-Smoker
Alcohol: None
Drug: None
Allergies / Home Medications
Allergy/AdvReac Type Severity Reaction Status Date / Time
No Known Allergies Allergy Verified 01/26/24 20:56
�Medication �Instructions �Recorded
amlodipine 5 mg tablet 5 mg PO DAILY Blood Pressure 01/16/24
cholecalciferol (vitamin D3) 25 75 mcg PO DAILY Supplement 01/16/24
mcg (1,000 unit) tablet (Vitamin
D3)
denosumab 60 mg/mL subcutaneous 60 mg SC [id number] bone loss 01/16/24
syringe (Prolia)
losartan 100 mg tablet 100 mg PO DAILY Blood Pressure 01/16/24
aspirin 81 mg chewable tablet 81 mg PO DAILY 30 days #30 tabs 01/20/24
furosemide 20 mg tablet 20 mg PO DAILY 30 days #30 tabs 01/20/24
levothyroxine 137 mcg tablet 137 mcg PO DAILY #30 tabs 01/20/24
(Synthroid)
acetaminophen 500 mg tablet 500 mg PO Q6HPRN PRN mild pain 01/26/24
(Tylenol Extra Strength)
Review of Systems
Vital Signs
Temp Pulse Resp BP Pulse Ox
98.0 F 101 20 107/69 92
02/01/24 11:46 02/01/24 11:46 02/01/24 11:46 02/01/24 11:46 02/01/24 11:46
Physical Exam
Exam
General: Well Developed and Well Nourished
HEENT: Normocephalic
Respiratory: Clear
Cardiac: S1/S2
GI: Soft, Non Tender and Non Distended
Results
WBC 11.7 10^3/uL (4.8-10.8) H 02/01/24 05:21
Hgb 11.4 g/dL (12.0-16.0) L 02/01/24 05:21
Hct 32.6 % (37.0-47.0) L 02/01/24 05:21
MCV 85.3 fL (81.0-99.0) 02/01/24 05:21
Plt Count 387 10^3/uL (130-400) 02/01/24 05:21
Absolute Neuts (auto) 9.5 10^3/uL (1.4-6.5) H 02/01/24 05:21
PT 14.6 Sec (11.4-14.6) 01/31/24 05:39
INR 1.16 01/31/24 05:39
Sodium 136 mmol/L (135-145) 02/01/24 05:21
Potassium 3.8 mmol/L (3.5-5.1) 02/01/24 05:21
Chloride 101 mmol/L (98-107) 02/01/24 05:21
Carbon Dioxide 19 mmol/L (22-30) L 02/01/24 05:21
BUN 70 mg/dl (7-17) H 02/01/24 05:21
Creatinine 1.8 mg/dL (0.6-1.0) H 02/01/24 05:21
Calcium 8.2 mg/dl (8.4-10.2) L 02/01/24 05:21
Total Bilirubin 0.6 mg/dl (0.2-1.3) 01/31/24 05:40
AST 23 U/L (14-36) 01/31/24 05:40
ALT 11 U/L (0-35) 01/31/24 05:40
Alkaline Phosphatase 71 U/L (38-126) 01/31/24 05:40
Diagnostic Image Results:
Prior GI Procedures:
EGD:
Colonoscopy:
Assessment / Plan
-
78-year-old female with history of gastric CA s/p BII gastrectomy in 2019 w/ chemo and RTX, hypothyroidism, DVT of RUE who presented with dyspnea. During her workup she had a brain MRI which showed innumerable brain lesions measuring up to 6 mm
suspicious for possible metastatic lesion versus other. She was evaluated by oncology who recommended possible GI evaluation.
Impression / Rec:
1. Brain lesion - She had MRI brain during her admission which showed innumerable lesions measuring up to 6 mm. This is incompletely characterized at this time and current suspicion is either embolic strokes versus metastatic disease. She does
have history of stage II gastric CA with gastrectomy and BII gastrojejunostomy in 2019 followed by chemo and radiation therapy. She had been surveyed by oncologist since. Denies recent endoscopy and she had virtual colonoscopy in 2020 which showed
transition point in transverse colon otherwise unremarkable. Oncology requested for exclusion of GI related malignancy. However, the patient does not want endoscopic evaluation at this time. GI will sign off please call us back with questions.
Total Time Spent with Patient (in minutes): 55
-
-
Thank you for consultation and allowing me to participate in the patient's care. Please call the director of business operations GI physician during the after hours with any questions or concerns.
[2024-02-01 15:09] VITALS: BP 108/75
[2024-02-01 15:23] LABS: ANA, HEp-2, IgG Detected (<1:80)
[2024-02-01 15:26] LABS: ANA Pattern Speckled
[2024-02-01 19:15] VITALS: BP 103/64
[2024-02-01 23:45] VITALS: BP 105/66
[2024-02-02 03:35] VITALS: BP 104/67
[2024-02-02] MEDS: SYNTHROID 137 MCG PO (05:57)
[2024-02-02 06:00] VITALS: BMI 24.2
[2024-02-02 07:00] VITALS: BP 120/76
[2024-02-02 08:39] LABS: % Basophils 0.6 % (0-2); % Eosinophils 0.4 % (0-6); % Immature Granulocytes 1.2 % (0-0.5); % Lymphocytes 6.2 % (20.5-51.1); % Neutrophils 80.6 % (42.2-75.2); Absolute Basophils 0.1 10^3/uL (0-0.2); Absolute Immature Granulocytes 0.1 10^3/uL (0-0.05); Absolute Lymphocytes 0.7 10^3/uL (1.2-3.4); Absolute Monocytes 1.2 10^3/uL (0.1-0.6); Absolute Neutrophils 8.5 10^3/uL (1.4-6.5); Hematocrit 33.2 % (37.0-47.0); Hemoglobin 11.5 g/dL (12.0-16.0); Mean Corp Hgb Conc. 34.6 g/dL (33.0-37.0); Mean Corpuscular Hgb 30.5 pg (27.0-31.0); Mean Corpuscular Volume 88.1 fL (81.0-99.0); Mean Platelet Volume 9.3 fL (7.4-10.4); Nucleated Red Blood Cells % 0 %; Platelet Count 356 10^3/uL (130-400); Red Blood Cell Count 3.77 10^6/uL (4.20-5.40); Red Cell Dist. Width 13.5 % (11.5-14.5); White Blood Cell Count 10.6 10^3/uL (4.8-10.8)
[2024-02-02 08:44] LABS: NT-proBNP 1170 pg/ml
[2024-02-02 08:59] LABS: Blood Urea Nitrogen 66 mg/dl (7-17); Calcium 8.2 mg/dl (8.4-10.2); Carbon Dioxide 21 mmol/L (22-30); Chloride 102 mmol/L (98-107); Estimated Creatinine Clearance 22 ml/min; Glucose 118 mg/dl (70-99); Potassium 3.9 mmol/L (3.5-5.1); Sodium 137 mmol/L (135-145)
[2024-02-02] MEDS: OMNIPAQUE 50 ML PO (09:09)
[2024-02-02] MEDS: HEPARIN 5000 UNITS SC ×2 (09:13→20:34)
[2024-02-02] MEDS: LIDOCAINE 4% PATCH 1 PATCH TOPICAL (09:13)
[2024-02-02] MEDS: LOW STRENGTH ASPIRIN 81 MG PO (09:14)
[2024-02-02] MEDS: VITAMIN B-12 PO (09:15)
[2024-02-02] MEDS: VITAMIN D3 (cholecalciferol) PO (09:15)
[2024-02-02] MEDS: NORVASC PO (09:15)
--- NOTE | 2024-02-02 10:25 | W.PN.HOSP.TC ---
Today's Communication/Plan
-
see bold
Assessment / Plan
Assessment / Plan
Gen: NAD, awake and alert, NCAT, appears chronically ill
Eyes: EOMI, PERRLA, no scleral icterus.
Neck: supple.
CV: RRR, +S1/S2, no m/r/g.
Resp: decreased BS in the bases, no rales, wheezes, or rhonchi.
Abd: +BS, soft, NT, ND
Skin: No rashes.
Neuro: CN 2-12 intact, non-focal.
Psych: Normal mood and affect.
MRI brain w/wo: Subcentimeter enhancing foci throughout the supratentorium and infratentorial most consistent with metastatic disease. Many of these lesions demonstrate diffusion hyperintense signal. There are foci of diffusion hyperintense signal
which do not demonstrate discrete enhancement for example within the superior aspect of the left cerebellar hemisphere which may represent numerous small infarctions given the lack of enhancement. There is a 2.1 x 2.0 x 2.3 cm dural based,
extra-axial lesion which demonstrates partial calcification along the anterior right frontal lobe this most likely represents meningioma although in the setting of numerous metastases a large dural based metastasis cannot be excluded. There is
extensive T2/FLAIR hyperintense signal throughout the white matter which likely represents a combination of perilesional edema and small vessel ischemic disease.
Echo: EF 55-60%, no RWMA. Normal RV sz/fxn. No significant valvular pathology. Trivial pericardial effusion. No evidence of endocarditis as clinically questioned within limits of the study
CXR 02/01/24: Moderate stable left pleural effusion. Small stable right pleural effusion.
Brain lesions:
-MRI brain above
-currently with broad differential at this time, acute stroke and either metastatic lesions vs embolic
-see by ID, neurosurgery, neuro, onc, GI. Note, patient does not want endoscopic procedures at this time.
-cont ASA/statin
-carotid U/S ordered
-EMG 01/30/24 without electrodiagnostic evidence of myopathy, cervical nor lumbosacral radiculopathy
-BCxs 01/30/24 [address]
-CT A/P today
KRUNAL on CKD3a:
-baseline Cr 1.0-1.3, peaked at 1.9 on 01/31/24
-was on Lasix, now stopped
-cont gentle IVFs
Acute recurrent hypoxic respiratory failure:
-CXR above
-was on 6L NC O2, now down to 4L NC O2
-Pleural effusions are clearly contributing
-c/s IR for Dx/Tx L thoracentesis
-pulm saw in c/s
Acute HFpEF:
-was on IV Lasix, then PO Lasix. Now off lasix with KRUNAL.
-daily wts, I/Os, FR
-cardiology saw in c/s
Other problems:
Leukocytosis, resolved, likely reactive, afebrile
Depression versus adjustment disorder: Psychiatry consulted and did not think she needed antidepressants.
Vit B12 deficiency: Continue B12 supplementation
CAD: cont ASA/statin
Hypothyroidism: cont Levoxyl
h/o Gastric cancer s/p partial gastrectomy/chemo/XRT
FULL/heparin
I had an extensive conversation with the patient and family members at bedside. I explained that in order to accurately diagnose and effectively treat the patient that she needs to agree to recommended procedures and testing. If she does not want
this then she should choose hospice. The family will talk to the patient about this over the next day.
Total time spent on today's encounter was 52 minutes which included time spent in counseling the patient/family regarding diagnosis and treatment plan as listed above, goals of care, and symptom management. Case was discussed with nursing staff,
specialists, and care coordinators/case management. All labs and imaging personally reviewed by me. Remainder the time spent in detailed review of previous records, lab data, imaging, and other medical provider documentation.
Anticipated Discharge: 24 - 48 hours
Subjective/Interval History
-
Date of Service: February 02, 2024
Denies CP/SOB.
Objective Data
-
Labs:
Laboratory Results
02/02/24
07:48
WBC 10.6
Hgb 11.5 L
Hct 33.2 L
Plt Count 356
Sodium 137
Potassium 3.9
Chloride 102
Carbon Dioxide 21 L
BUN 66 H
Creatinine 1.6 H
Glucose 118 H
Calcium 8.2 L
Vital Signs:
Vital Signs
Temp Pulse Resp BP Pulse Ox
98.3 F 74 18 120/76 95
02/02/24 07:00 02/02/24 07:00 02/02/24 07:00 02/02/24 07:00 02/02/24 07:00
I&O
02/01/24 02/02/24 02/03/24
06:59 06:59 06:59
Intake Total 760 / 760 340 / 340
Output Total 900 / 900 375 / 375
Balance -140 / -140 -35 / -35
[2024-02-02 11:00] VITALS: BP 100/67
[2024-02-02 11:23] LABS: LDH 279 U/L (120-246); Total Protein 5.6 g/dl (6.3-8.2)
[2024-02-02] MEDS: D5/0.45%NACL 1000 IV (13:49)
[2024-02-02 15:00] VITALS: BP 103/66
[2024-02-02] MEDS: D5/0.45%NACL IV ×2 (18:58→18:59)
[2024-02-02 19:55] VITALS: BP 106/67
[2024-02-02 23:00] VITALS: BP 111/67
[2024-02-03] VITALS (8 sets, daily range): BP systolic 77–114; BP diastolic 63–74; BMI 23.6
[2024-02-03] MEDS: SYNTHROID PO (04:11)
[2024-02-03] MEDS: LOW STRENGTH ASPIRIN PO (08:46)
[2024-02-03] MEDS: LIDOCAINE 4% PATCH TOPICAL (08:46)
[2024-02-03] MEDS: HEPARIN SC ×2 (08:46→20:22)
[2024-02-03] MEDS: VITAMIN D3 (cholecalciferol) PO (08:47)
[2024-02-03] MEDS: VITAMIN B-12 PO (08:47)
[2024-02-03] MEDS: NORVASC PO (08:47)
[2024-02-03 09:48] LABS: Body Fluid pH 7.47
[2024-02-03 09:59] LABS: Body Fluid WBC 106 /CUMM
--- NOTE | 2024-02-03 09:59 | W.PN.HOSP.TC ---
Today's Communication/Plan
-
see bold
Assessment / Plan
Assessment / Plan
Gen: NAD, awake and alert, NCAT, appears chronically ill
Eyes: EOMI, PERRLA, no scleral icterus.
Neck: supple.
CV: RRR, +S1/S2, no m/r/g.
Resp: decreased BS in the bases, no rales, wheezes, or rhonchi.
Abd: +BS, soft, NT, ND
Skin: No rashes.
Neuro: CN 2-12 intact, non-focal.
Psych: Normal mood and affect.
MRI brain w/wo: Subcentimeter enhancing foci throughout the supratentorium and infratentorial most consistent with metastatic disease. Many of these lesions demonstrate diffusion hyperintense signal. There are foci of diffusion hyperintense signal
which do not demonstrate discrete enhancement for example within the superior aspect of the left cerebellar hemisphere which may represent numerous small infarctions given the lack of enhancement. There is a 2.1 x 2.0 x 2.3 cm dural based,
extra-axial lesion which demonstrates partial calcification along the anterior right frontal lobe this most likely represents meningioma although in the setting of numerous metastases a large dural based metastasis cannot be excluded. There is
extensive T2/FLAIR hyperintense signal throughout the white matter which likely represents a combination of perilesional edema and small vessel ischemic disease.
Echo: EF 55-60%, no RWMA. Normal RV sz/fxn. No significant valvular pathology. Trivial pericardial effusion. No evidence of endocarditis as clinically questioned within limits of the study
CXR 02/01/24: Moderate stable left pleural effusion. Small stable right pleural effusion.
CT A/P 02/02/24: Moderately extensive retroperitoneal lymphadenopathy with clustered para-aortic and paracaval lymph nodes measuring up to 2 cm in length. An approximately 6 cm in length area of apparent bowel wall thickening in the proximal
transverse colon. This thickening may be due to incomplete distention, inflammatory disease or neoplasm and, given the patient's clinical history and retroperitoneal adenopathy, colonoscopy may be useful for further evaluation. Concentric thickening
of the wall of the stomach to 14 mm which may be secondary to incomplete distention, however, given patient's clinical history, endoscopic evaluation may be useful for further evaluation. Partial gastric resection with gastrojejunostomy in the left
upper quadrant. Small right and moderate left pleural effusions associated with compressive atelectasis at the posterior lung bases.
Brain lesions:
-MRI brain above
-currently with broad differential at this time, acute stroke and either metastatic lesions vs embolic (although malignancy seems most likely at this time)
-see by ID, neurosurgery, neuro, onc, GI.
-cont ASA/statin
-carotid U/S ordered
-EMG 01/30/24 without electrodiagnostic evidence of myopathy, cervical nor lumbosacral radiculopathy
-BCxs 01/30/24 [address]
-CT A/P above. After discussion with the patient's son he feels the patient will be agreeable to EGD/colonoscopy. GI made aware.
KRUNAL on CKD3a:
-baseline Cr 1.0-1.3, peaked at 1.9 on 01/31/24
-was on Lasix, now stopped
-pt has been on gentle IVFs. Stop IVFs.
-check BMP
Acute recurrent hypoxic respiratory failure:
-CXR above
-was on 6L NC O2, now down to 4L NC O2
-Pleural effusions are clearly contributing
-s/p L thoracentesis for 950cc on 02/03/24AM, pH 7.47, WBC 106, prot 4.1 (exudative), follow cytology
-pulm following
Acute HFpEF:
-was on IV Lasix, then PO Lasix. Now off lasix with KRUNAL.
-daily wts, I/Os, FR
-cardiology following
Other problems:
Leukocytosis, resolved, likely reactive, afebrile
Depression versus adjustment disorder: Psychiatry consulted and did not think she needed antidepressants.
Vit B12 deficiency: Continue B12 supplementation
CAD: cont ASA/statin
Hypothyroidism: cont Levoxyl
h/o Gastric cancer s/p partial gastrectomy/chemo/XRT
FULL/heparin
On 02/02/24 I had an extensive conversation with the patient and family members at bedside. I explained that in order to accurately diagnose and effectively treat the patient that she needs to agree to recommended procedures and testing. If she does
not want this then she should choose hospice. On 02/03/24 patient's son reports that the patient should be agreeable to EGD/colonoscopy.
Total time spent on today's encounter was 50 minutes which included time spent in counseling the patient/family regarding diagnosis and treatment plan as listed above, goals of care, and symptom management. Case was discussed with nursing staff,
specialists, and care coordinators/case management. All labs and imaging personally reviewed by me. Remainder the time spent in detailed review of previous records, lab data, imaging, and other medical provider documentation.
Anticipated Discharge: 24 - 48 hours
Subjective/Interval History
-
Date of Service: February 03, 2024
Patient does not offer acute complaints.
Objective Data
-
Vital Signs:
Vital Signs
Temp Pulse Resp BP Pulse Ox
97.9 F 77 18 111/69 99
02/03/24 08:55 02/03/24 09:15 02/03/24 09:15 02/03/24 09:15 02/03/24 09:15
I&O
02/02/24 02/03/24 02/04/24
06:59 06:59 06:59
Intake Total 340 / 340 960 / 960 120 / 120
Output Total 375 / 375 400 / 400 300 / 300
Balance -35 / -35 560 / 560 -180 / -180
[2024-02-03 10:00] LABS: Body Fluid Mononuclear 86.8 %; Body Fluid Polymorphonuclear 13.2 %
--- NOTE | 2024-02-03 10:09 | W.PN.ONC2 ---
Today's Communication / Plan
-
f/u thora cytology
continue C conversation/support
Case management consulted for comfort focused care options/hospice
Impression
Impression
Hx gastric cancer stage II, treated with curative intent through 01/2020 s/p partial gastric resection with gastrojejunostomy in the left upper quadrant
Innumerable brain lesions measuring up to 6-mm, etiology unclear, metastatic disease suspected
pleural effusion s/p thoracentesis 02/02
6 cm in length area of apparent bowel wall thickening in the proximal transverse colon and concentric thickening of the wall of the stomach to 14 mm -pt declining further GI evaluation at this time noted
extensive retroperitoneal lymphadenopathy with clustered para-aortic and paracaval lymph nodes measuring up to 2 cm in length
KRUNAL on CKD
Mild confusion
Loss of appetite
Difficulty swallowing
Plan
Plan
CT A/P now, eval for new/recurrent primary.
declining further GI evaluation
f/u thoracentesis cytology
if pleural fluid cytology is non-diagnostic, could consider IR bx of moderately extensive retroperitoneal lymphadenopathy with clustered para-aortic and paracaval lymph nodes measuring up to 2 cm in length -Pt tells me that she would not be
interested in any further procedures
Risk of brain mets with gastric cancer is 1% or less and seems unlikely with no other met disease. Neurosurgical evaluation notes that lesions are too numerous and small to merit surgical intervention.
[facility] conversation with patient, she would like to focus on comfort focused care
>50% visit spent on education, counseling, and coordination of care.
Subjective/Objective
Chief Complaint
afebrile, no hypotension, 4L NC
Subjective
no new complaints
Son at bedside
Vital Signs:
Vital Signs
Temp Pulse Resp BP Pulse Ox
97.9 F 77 18 111/69 99
02/03/24 08:55 02/03/24 09:15 02/03/24 09:15 02/03/24 09:15 02/03/24 09:15
Lab Results:
Laboratory Data
WBC 10.6 10^3/uL (4.8-10.8) 02/02/24 07:48
Hgb 11.5 g/dL (12.0-16.0) L 02/02/24 07:48
Plt Count 356 10^3/uL (130-400) 02/02/24 07:48
PT 14.6 Sec (11.4-14.6) 01/31/24 05:39
INR 1.16 01/31/24 05:39
eGFR 32.60 02/02/24 07:48
Physical Exam
HEENT: Moist Mucous Membranes; No Jaundice
Cardiology: S1 and S2
Pulmonary: Clear
GI: Soft
Neuro: Non Focal and Other (speech clear)
Review of Systems
Review of Systems
ROS notable for subjective, otherwise negative
[2024-02-03 10:10] LABS: Body Fluid Amylase < 30 U/L; Body Fluid Glucose 108 mg/dl; Body Fluid LDH 231 U/L; Body Fluid Protein 4.1 g/dl; Body Fluid Second Tech AMA; Body Fluid Triglycerides 97 mg/dl
[2024-02-03] MEDS: D5/0.45%NACL 1000 IV (10:55)
[2024-02-03 11:20] LABS: Blood Urea Nitrogen 55 mg/dl (7-17); Calcium 8.2 mg/dl (8.4-10.2); Carbon Dioxide 23 mmol/L (22-30); Chloride 103 mmol/L (98-107); Estimated Creatinine Clearance 27 ml/min; Glucose 109 mg/dl (70-99); Potassium 4.1 mmol/L (3.5-5.1); Sodium 136 mmol/L (135-145); eGFR 41.83
--- NOTE | 2024-02-03 11:27 | CM ---
Patient seen at bedside with family members. Patient requesting to talk to clinical account liaison and tt to liaison asking for consult sent. Patient physician also placed consult. Patient son indicated that his mother was discouraged and had been here for
7 days. CM will continue to follow for discharge planning needs.
Plan; consult for hospice patient requesting comfort care.
--- NOTE | 2024-02-03 12:20 | HOSPNOTE ---
Addendum entered by Elizabeth Jamison RN 02/03/24 12:23:
Family is not requesting comfort care, right now the patient remains a full code just further testing is on hold.
Original Note:
Discussed hospice care and palliative care with patient and adult children. The patient is asking that no further testing be done and the children are struggling. The patient would like to have a family meeting tonight with two other children and
discuss her feelings. The plan if family is in agreement home with hospice. Attending aware and ANGELITO aware, I will follow up with family tomorrow with a decision.
--- NOTE | 2024-02-03 13:28 | W.PN.UPDATE ---
Update Note
Progress Note Update
Left thoracentesis performed. Pt has a stable, suspected ex vacuo pneumothorax. CXR order is placed for tomorrow morning. If patient condition changes get STAT CXR
--- NOTE | 2024-02-03 13:40 | W.PN.ID1 ---
Date of Service
Date of Service: February 03, 2024
Today's Communication
Observe off antibiotics.
Assessment / Plan
Leukocytosis - trending down
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
Fatigue / weakness
Elevated ESR / CRP
HTN
Hypothyroidism
Cholelithiasis
Hx Gastric cancer (2019; chemo, XRT)
Recommendations:
Note MRI brain findings- likely malignancy
Also elevated free light chains
At present, little evidence of an infectious process.
Suspect leukocytosis at present it is reactive.
Neurosurgeon concern for embolic CVA.
TTE: no gross vegetation.
Blood cx's x 2 (off abx) negative to date, unlikely IE.
If remains suspicious for infective endocarditis, obtain BUBBA.
Continue to observe off abx.
Family currently leaning towards palliative care/hospice.
����������������������������������������������������������
Chief Complaint
-: Leukocytosis
Subjective / Review of Systems
Review of Systems: No Fever
Vital Signs / Physical Exam
Vital Signs
Vital Signs
Temp Pulse Resp BP Pulse Ox
98.4 F 99 18 105/73 92
02/03/24 11:40 02/03/24 11:40 02/03/24 11:40 02/03/24 11:40 02/03/24 11:40
Physical Exam
Constitutional: No Acute Distress, Comfortable, Chronically Ill and Non-toxic
Pulmonary: Non Labored
Gastrointestinal: Non Distended
Psychological: Calm
Objective Data
Lab Data
Lab Results
02/02/24 07:48
02/03/24 10:40
ESR 83 mm/hour (0-20) H 01/28/24 05:17
PT 14.6 Sec (11.4-14.6) 01/31/24 05:39
INR 1.16 01/31/24 05:39
Estimated Creat Clear 27 ml/min 02/03/24 10:40
Total Bilirubin 0.6 mg/dl (0.2-1.3) 01/31/24 05:40
AST 23 U/L (14-36) 01/31/24 05:40
ALT 11 U/L (0-35) 01/31/24 05:40
Alkaline Phosphatase 71 U/L (38-126) 01/31/24 05:40
C-Reactive Protein 44.60 mg/L (0.0-10.00) H 01/28/24 05:17
Most recent labs reviewed.
Micro Results:
02/03/24 09:18 Fungal Smear - Pending
Pleural Fluid Fungal Culture - Preliminary
Culture in progress.
Positive cultures are reported as soon as detected.
Final report to follow in four to five weeks.
02/03/24 09:18 Acid Fast Bacilli Smear - Pending
Pleural Fluid Acid Fast Bacilli Culture - Pending
02/03/24 09:18 Body Fluid Culture - Pending
Pleural Fluid Gram Stain - Pending
01/30/24 18:59 Blood Culture - Preliminary
Blood/Venous No Growth in 72 hours- Final report to follow
01/30/24 18:25 Blood Culture - Preliminary
Blood/Venous No Growth in 72 hours- Final report to follow
Imaging:
01/28 MRI brain: subcentimeter enhancing foci throughout the supratentorium and infratentorial most consistent with metastatic disease
01/29/24 CT Head : There are no acute intracranial abnormalities. 2.5 cm calcified right frontal meningioma with moderate impingement upon the underlying right frontal gyri. There is moderate diffuse cortical atrophy with moderate nonspecific white
matter changes
01/26/2024 CXR (2 view): Small, left greater than right 5 lateral pleural effusions with adjacent bibasilar opacities. Cardiac and mediastinal contours are mildly enlarged.
01/16/2024 CT chest: 1. No evidence of pulmonary embolism. 2. Small left greater than right lateral pleural effusions with adjacent atelectasis. 3. Postoperative changes in the upper abdomen with mild wall thickening of the gastric remnant which
may be due to underdistention however can be seen with gastritis. 4. Prior cholecystectomy with prominence of the biliary ducts, likely secondary to reservoir effect.
[2024-02-03] MEDS: TYLENOL 650 MG PO (14:52)
[2024-02-04 03:25] VITALS: BP 107/64
[2024-02-04] MEDS: SYNTHROID PO (05:24)
[2024-02-04 06:00] VITALS: BMI 23.8
[2024-02-04 07:15] VITALS: BP 107/68
[2024-02-04 07:20] LABS: Blood Urea Nitrogen 47 mg/dl (7-17); Calcium 7.7 mg/dl (8.4-10.2); Carbon Dioxide 21 mmol/L (22-30); Chloride 106 mmol/L (98-107); Estimated Creatinine Clearance 29 ml/min; Glucose 108 mg/dl (70-99); Iron 50 ug/dl (37-170); Potassium 4.1 mmol/L (3.5-5.1); Sodium 135 mmol/L (135-145); eGFR 46.05
[2024-02-04 07:29] LABS: Percent Saturation 22 % (20-50); Total Iron Binding Capacity 218 ug/dl (265-497)
--- NOTE | 2024-02-04 07:48 | W.PN.HOSP.TC ---
Addendum entered and electronically signed by Logan Aaron MD 02/04/24 10:55:
d/c to hospice.
Total time spent on d/c = 34 min. This included today's physical exam, progress note, review of laboratory and diagnostic data, preparation of discharge documents and prescriptions, and discussions about the pt's hospital course and discharge plan
with the patient and other medical collector involved in the patient's care.
Original Note:
Today's Communication/Plan
-
likely d/c to hospice today
Assessment / Plan
Assessment / Plan
Gen: remains NAD, awake and alert, NCAT, appears chronically ill
Eyes: EOMI, PERRLA, no scleral icterus.
Neck: supple.
CV: Remains RRR, +S1/S2, no m/r/g.
Resp: CRAB anteriorly, no rales, wheezes, or rhonchi.
Abd: +BS, soft, NT, ND
Skin: No rashes.
Neuro: CN 2-12 intact, non-focal.
Psych: Normal mood and affect.
MRI brain w/wo: Subcentimeter enhancing foci throughout the supratentorium and infratentorial most consistent with metastatic disease. Many of these lesions demonstrate diffusion hyperintense signal. There are foci of diffusion hyperintense signal
which do not demonstrate discrete enhancement for example within the superior aspect of the left cerebellar hemisphere which may represent numerous small infarctions given the lack of enhancement. There is a 2.1 x 2.0 x 2.3 cm dural based,
extra-axial lesion which demonstrates partial calcification along the anterior right frontal lobe this most likely represents meningioma although in the setting of numerous metastases a large dural based metastasis cannot be excluded. There is
extensive T2/FLAIR hyperintense signal throughout the white matter which likely represents a combination of perilesional edema and small vessel ischemic disease.
Echo: EF 55-60%, no RWMA. Normal RV sz/fxn. No significant valvular pathology. Trivial pericardial effusion. No evidence of endocarditis as clinically questioned within limits of the study
CXR 02/01/24: Moderate stable left pleural effusion. Small stable right pleural effusion.
CT A/P 02/02/24: Moderately extensive retroperitoneal lymphadenopathy with clustered para-aortic and paracaval lymph nodes measuring up to 2 cm in length. An approximately 6 cm in length area of apparent bowel wall thickening in the proximal
transverse colon. This thickening may be due to incomplete distention, inflammatory disease or neoplasm and, given the patient's clinical history and retroperitoneal adenopathy, colonoscopy may be useful for further evaluation. Concentric thickening
of the wall of the stomach to 14 mm which may be secondary to incomplete distention, however, given patient's clinical history, endoscopic evaluation may be useful for further evaluation. Partial gastric resection with gastrojejunostomy in the left
upper quadrant. Small right and moderate left pleural effusions associated with compressive atelectasis at the posterior lung bases.
CXR 02/04/24: Stable small to moderate left apical pneumothorax.
Brain lesions:
-MRI brain above
-currently with broad differential at this time, acute stroke and either metastatic lesions vs embolic (although malignancy seems most likely at this time)
-see by ID, neurosurgery, neuro, onc, GI.
-cont ASA/statin
-EMG 01/30/24 without electrodiagnostic evidence of myopathy, cervical nor lumbosacral radiculopathy
-BCxs 01/30/24 [address]
-CT A/P above
-pt and family now have decided on comfort care/hospice
KRUNAL on CKD3a:
-baseline Cr 1.0-1.3, peaked at 1.9 on 01/31/24
-was on Lasix, now stopped. Was then on IVFs, now stopped
-Cr 1.2
Acute recurrent hypoxic respiratory failure:
-was on 6L NC O2, now down to 4L NC O2
-Pleural effusions are clearly contributing
-s/p L thoracentesis for 950cc on 02/03/24AM, pH 7.47, WBC 106, prot 4.1 (exudative), follow cytology
-pulm saw in consult
-CXR 02/04/24 with likely ex vacuo PTX
Acute HFpEF:
-was on IV Lasix, then PO Lasix. Lasix was stopped with KRUNAL.
-daily wts, I/Os, FR
-cardiology saw in consult
Other problems:
Leukocytosis, resolved, likely reactive, afebrile
Depression versus adjustment disorder: Psychiatry consulted and did not think she needed antidepressants.
Vit B12 deficiency: Continue B12 supplementation
CAD: cont ASA/statin
Hypothyroidism: cont Levoxyl
h/o Gastric cancer s/p partial gastrectomy/chemo/XRT
FULL/heparin
On 02/02/24 I had an extensive conversation with the patient and family members at bedside. I explained that in order to accurately diagnose and effectively treat the patient that she needs to agree to recommended procedures and testing. If she does
not want this then she should choose hospice. On 02/03/24 the patient and patient's family were leaning towards comfort care/hospice. On 02/04/24 the pt and family have decided on comfort care/hospice.
Anticipated Discharge: Today
Subjective/Interval History
-
Date of Service: February 04, 2024
No new complaints.
Objective Data
-
Labs:
Laboratory Results
02/04/24
05:57
Sodium 135
Potassium 4.1
Chloride 106
Carbon Dioxide 21 L
BUN 47 H
Creatinine 1.2 H
Glucose 108 H
Calcium 7.7 L
Vital Signs:
Vital Signs
Temp Pulse Resp BP Pulse Ox
97.4 F 88 20 107/68 96
02/04/24 07:15 02/04/24 07:15 02/04/24 07:15 02/04/24 07:15 02/04/24 07:15
I&O
02/03/24 02/04/24 02/05/24
06:59 06:59 06:59
Intake Total 960 / 960 1080 / 1080
Output Total 400 / 400 800 / 800
Balance 560 / 560 280 / 280
[2024-02-04 07:49] LABS: CEA 4.84 ng/ml
[2024-02-04] MEDS: HEPARIN SC (07:50)
[2024-02-04] MEDS: VITAMIN D3 (cholecalciferol) PO (07:50)
[2024-02-04] MEDS: NORVASC PO (07:50)
[2024-02-04] MEDS: LOW STRENGTH ASPIRIN PO (07:50)
[2024-02-04] MEDS: VITAMIN B-12 PO (07:50)
[2024-02-04] MEDS: LIDOCAINE 4% PATCH TOPICAL (07:52)
--- NOTE | 2024-02-04 08:22 | W.PN.ONC2 ---
Today's Communication / Plan
-
She does not wish further diagnostic testing and requests hospice care. DNR ordered.
Impression
Impression
Hx gastric cancer stage II, treated with curative intent through 01/2020 s/p partial gastric resection with gastrojejunostomy in the left upper quadrant
Innumerable brain lesions measuring up to 6-mm, etiology unclear, metastatic disease suspected
pleural effusion s/p thoracentesis 02/02
6 cm in length area of apparent bowel wall thickening in the proximal transverse colon and concentric thickening of the wall of the stomach to 14 mm -pt declining further GI evaluation at this time noted
extensive retroperitoneal lymphadenopathy with clustered para-aortic and paracaval lymph nodes measuring up to 2 cm in length
KRUNAL on CKD
Mild confusion
Loss of appetite
Difficulty swallowing
Plan
Plan
CT A/P reviewed and shows moderately extensive retroperitoneal lymphadenopathy.
She is declining further GI evaluation
f/u thoracentesis cytology (pending)
if pleural fluid cytology is non-diagnostic, next step if she agreeabkle would be IR bx of moderately extensive retroperitoneal lymphadenopathy. Pt reiterates that she is not interested in any further invasive procedures
Risk of brain mets with gastric cancer is 1% or less and seems unlikely with no other met disease. Neurosurgical evaluation notes that lesions are too numerous and small to merit surgical intervention.
GOC conversation with patient, she would like to focus on comfort focused care
>50% visit spent on education, counseling, and coordination of care.
Subjective/Objective
Chief Complaint
ACS Heme Onc
Subjective
No new complaints. She has elected to move forward with hospice. She does not wish therapy or invasive diagnostic procedures
Vital Signs:
Vital Signs
Temp Pulse Resp BP Pulse Ox
97.4 F 88 20 107/68 96
02/04/24 07:15 02/04/24 07:15 02/04/24 07:15 02/04/24 07:15 02/04/24 07:15
Lab Results:
Laboratory Data
WBC 10.6 10^3/uL (4.8-10.8) 02/02/24 07:48
Hgb 11.5 g/dL (12.0-16.0) L 02/02/24 07:48
Plt Count 356 10^3/uL (130-400) 02/02/24 07:48
PT 14.6 Sec (11.4-14.6) 01/31/24 05:39
INR 1.16 01/31/24 05:39
eGFR 46.05 02/04/24 05:57
Physical Exam
HEENT: No Jaundice
Cardiology: S1 and S2
Pulmonary: Clear
GI: Soft
Orders
Orders
Orders From Last 24 Hours
02/04/24 06:56
Add On- LAB Routine
--- NOTE | 2024-02-04 09:44 | HOSPNOTE ---
Spoke with the son and the plan is for patient to go home today with hospice. The patient is very clear of her wishes and does not wish to seek further treatments and go home with hospice. We will order equipment and transport will be needed, OOH
DNR will be needed on chart. Attending and case management aware.
--- NOTE | 2024-02-04 10:40 | CM ---
Patient seen at bedside with son and daughter. Patient states she wants to go home with Hospice, Patient daughter and son present and aware of plan. Patient for discharge home to [facility] hospice. IMM signed and on chart. Out of hospital DNR on chart,
signed by physician. Patient for ambulance transfer home. Patient transportation forms on chart. CM will continue to follow for discharge planning needs.
Plan; home with hospice. Nurse to sign on today.
[2024-02-04 11:30] VITALS: BP 117/75
--- NOTE | 2024-02-04 13:30 | W.DCSUMMARY ---
Discharge Summary
Discharge Data
Date of Admission: 01/26/24
Date of Discharge: 02/04/24
-
Pending Results: No
Hospital Course
Primary diagnoses:
Brain lesions
Acute kidney injury on chronic disease stage IIIa
Acute recurrent hypoxic respiratory failure
Bilateral pleural effusions
Acute heart failure with preserved ejection fraction
Secondary diagnoses:
Leukocytosis, likely reactive
Depression versus adjustment disorder
Vitamin B12 deficiency
Coronary artery disease
Hypothyroidism
Gastric cancer s/p partial gastrectomy/chemotherapy/radiation
Consultants:
Infectious disease
Neurosurgery
Neurology
Oncology
Gastroenterology
Cardiology
Psychiatry
Pulmonary
Imaging:
MRI brain w/wo: Subcentimeter enhancing foci throughout the supratentorium and infratentorial most consistent with metastatic disease. Many of these lesions demonstrate diffusion hyperintense signal. There are foci of diffusion hyperintense signal
which do not demonstrate discrete enhancement for example within the superior aspect of the left cerebellar hemisphere which may represent numerous small infarctions given the lack of enhancement. There is a 2.1 x 2.0 x 2.3 cm dural based,
extra-axial lesion which demonstrates partial calcification along the anterior right frontal lobe this most likely represents meningioma although in the setting of numerous metastases a large dural based metastasis cannot be excluded. There is
extensive T2/FLAIR hyperintense signal throughout the white matter which likely represents a combination of perilesional edema and small vessel ischemic disease.
Echo: EF 55-60%, no RWMA. Normal RV sz/fxn. No significant valvular pathology. Trivial pericardial effusion. No evidence of endocarditis as clinically questioned within limits of the study
CXR 02/01/24: Moderate stable left pleural effusion. Small stable right pleural effusion.
CT A/P 02/02/24: Moderately extensive retroperitoneal lymphadenopathy with clustered para-aortic and paracaval lymph nodes measuring up to 2 cm in length. An approximately 6 cm in length area of apparent bowel wall thickening in the proximal
transverse colon. This thickening may be due to incomplete distention, inflammatory disease or neoplasm and, given the patient's clinical history and retroperitoneal adenopathy, colonoscopy may be useful for further evaluation. Concentric thickening
of the wall of the stomach to 14 mm which may be secondary to incomplete distention, however, given patient's clinical history, endoscopic evaluation may be useful for further evaluation. Partial gastric resection with gastrojejunostomy in the left
upper quadrant. Small right and moderate left pleural effusions associated with compressive atelectasis at the posterior lung bases.
CXR 02/04/24: Stable small to moderate left apical pneumothorax.
78-year-old female who initially presented with chief complaints of shortness of breath/dyspnea on exertion and fatigue is outlined in H&P done on admission. Hospital course per problem was
Brain lesions: MRI of the brain above and notable for subcentimeter enhancing foci throughout the supratentorium and infratentorial most consistent with metastatic disease. Patient was seen by multiple specialties as above. Of note she did have an
EMG 01/30/24 without electrodiagnostic evidence of myopathy, cervical nor lumbosacral radiculopathy. Blood cultures were no growth to date. Patient had a CT scan of the abdomen pelvis above which was notable for moderately extensive retroperitoneal
lymphadenopathy as well as thickening transverse colon. Ultimately the patient decided against further studies and workup (did not want EGD and colonoscopy) and opted for hospice.
KRUNAL on CKD3a: The patient's baseline Cr 1.0-1.3 and peaked at 1.9 on 01/31/24. Patient was on IV Lasix for acute heart failure with preserved ejection fraction which was stopped. She was then given IV fluids. Her creatinine improved to 1.2.
Acute recurrent hypoxic respiratory failure: Patient required is much as 6L NC O2 and was weaned down to 4L NC O2. Patient had bilateral pleural effusions which were clearly contributing to her acute recurrent hypoxemic respiratory failure. She
underwent L thoracentesis for 950cc on 02/03/24AM, pH 7.47, WBC 106, prot 4.1 (exudative). Cytology was pending at the time of discharge but the patient opted to be discharged home on hospice.
Acute HFpEF: Patient was diuresed with IV Lasix and then transitioned to oral Lasix. Her Lasix was stopped with acute kidney injury.
Discharge Plan
-
Patient Disposition: Home with Hospice
Discharge Diagnosis/Procedures: Brain lesions, acute kidney injury on chronic kidney disease stage IIIa, Acute recurrent hypoxic respiratory failure
Condition: Good
Diet: Regular
Activity: With assistance
Driving Restrictions: No driving
Other Services: Hospice
Referrals:
Segun Dunlap DO [Family Provider] -
Michael Wheeler MD [Active] - 03/01/24 8:40 am (You have a follow up visit with Dr. Wheeler at the [place] office. Please call with questions. )
Prescriptions:
New
lidocaine 4 % Adhesive Patch,Medicated
1 patch topical DAILY Qty: 30 0RF
Continued
amlodipine 5 mg Tablet
5 mg PO DAILY
cholecalciferol (vitamin D3) [Vitamin D3] 25 mcg (1,000 unit) Tablet
75 mcg PO DAILY
Prolia 60 mg/mL Syringe
60 mg SC [id number]
levothyroxine [Synthroid] 137 mcg tablet
137 mcg PO DAILY Qty: 30 0RF
aspirin 81 mg Tablet,Chewable
81 mg PO DAILY 30 Days Qty: 30 0RF
acetaminophen [Tylenol Extra Strength] 500 mg Tablet
500 mg PO Q6HPRN PRN (Reason: mild pain)
Discontinued
losartan 100 mg Tablet
100 mg PO DAILY
furosemide 20 mg Tablet
20 mg PO DAILY 30 Days Qty: 30 0RF
Discharge Orders:
Discharge Patient (As Directed); Ordered 02/04/24
Ordered By: Logan Aaron
Discharge Date and Time
Discharge Date/Time: 02/04/24 11:59
Print Language: ALB[place]
== END 2024-02-04 11:59 | disposition hospice, home (50) | DRG 54 ==
LOC: 3 WEST ACU 23:38
PROVIDERS: Clinical Nurse Specialist Family Health; Hospitalist; Nurse Practitioner Acute Care; Physician Assistant; Physician Assistant Medical; Radiology Vascular & Interventional Radiology; ADMITTING PHYSICIAN Hospitalist; ATTENDING PHYSICIAN Internal Medicine; CONSULT PHYSICIAN Internal Medicine Cardiovascular Disease; CONSULT PHYSICIAN Internal Medicine Gastroenterology; CONSULT PHYSICIAN Internal Medicine Infectious Disease; CONSULT PHYSICIAN Psychiatry & Neurology Neurology; CONSULT PHYSICIAN Psychiatry & Neurology Psychiatry; EMERGENCY PHYSICIAN Emergency Medicine; FAMILY PHYSICIAN Family Medicine; OTHER PHYSICIAN Internal Medicine; OTHER PHYSICIAN Internal Medicine Hematology & Oncology; OTHER PHYSICIAN Neurological Surgery
PROC: 0W9B3ZX Drainage of Left Pleural Cavity, Percutaneous Approach, Diagnostic (ICD-10-PCS; 2024-02-03)
DX: C79.31 Secondary malignant neoplasm of brain (principal); I50.33 Acute on chronic diastolic (congestive) heart failure; J96.01 Acute respiratory failure with hypoxia; I63.9 Cerebral infarction, unspecified; N17.9 Acute kidney failure, unspecified; I5A Non-ischemic myocardial injury (non-traumatic); I13.0 Hypertensive heart and chronic kidney disease with heart failure and stage 1 through stage 4 chronic kidney disease, or unspecified chronic kidney disease; J91.8 Pleural effusion in other conditions classified elsewhere; I35.0 Nonrheumatic aortic (valve) stenosis; E03.9 Hypothyroidism, unspecified; N18.31 Chronic kidney disease, stage 3a; R63.4 Abnormal weight loss; F32.A Depression, unspecified; G62.0 Drug-induced polyneuropathy; T45.1X5S Adverse effect of antineoplastic and immunosuppressive drugs, sequela; I25.10 Atherosclerotic heart disease of native coronary artery without angina pectoris; F43.20 Adjustment disorder, unspecified; E53.8 Deficiency of other specified B group vitamins; M81.0 Age-related osteoporosis without current pathological fracture; R29.705 NIHSS score 5; R59.0 Localized enlarged lymph nodes; R13.10 Dysphagia, unspecified; R26.2 Difficulty in walking, not elsewhere classified; R41.843 Psychomotor deficit; Z68.24 Body mass index [BMI] 24.0-24.9, adult; Z79.01 Long term (current) use of anticoagulants; Z79.82 Long term (current) use of aspirin; Z79.890 Hormone replacement therapy; Z79.899 Other long term (current) drug therapy; Z86.718 Personal history of other venous thrombosis and embolism; Z85.028 Personal history of other malignant neoplasm of stomach; Z92.21 Personal history of antineoplastic chemotherapy; Z92.3 Personal history of irradiation; Z87.19 Personal history of other diseases of the digestive system; Z90.49 Acquired absence of other specified parts of digestive tract; Z89.429 Acquired absence of other toe(s), unspecified side; Z90.3 Acquired absence of stomach [part of]; Z80.1 Family history of malignant neoplasm of trachea, bronchus and lung
CPT/HCPCS: 88305; 93308; 32555; 70450; 70553; 71045; 71046; 74176; 80048; 80053; 80061; 82150; 82306; 82378; 82607; 82728; 82746; 82945; 83521; 83540; 83550; 83615; 83880; 83986; 84155; 84156; 84157; 84439; 84443; 84478; 84484; 85025; 85610; 85652; 86038; 86039; 86140; 86335; 86430; 87015; 87040; 87070; 87102; 87116; 87205; 87206; 87811; 88112; 89051; 92610; 93005; 93321; 93325; 93880; 95886; 95912; 96365; 96375; 97110; 97116; 97162; 97167; 97530; 99285; A9575